=== PATIENT | male | born 1975 | race Caucasian/White ===

== ENCOUNTER 2019-08-07 17:01 | Inpatient (IN) | payer BC, OTHER ==
[~2019-08-07] VITALS: Ht 170.2 cm; Wt 111.0 kg
[2019-08-07] MEDS ORDERED: MIDAZOLAM HCL 1MG/1ML-2 ML VIAL ONE (17:06)
[2019-08-07] MEDS ORDERED: MIDAZOLAM DRIP 50 mg/50mL 50 ML IV ONE (17:12)
[2019-08-07] MEDS ORDERED: MIDAZOLAM HCL 5 MG/ML-1ML VIAL IV ONE ×2 (17:30→17:45)
[2019-08-07] MEDS: MIDAZOLAM DRIP 50 mg/50mL 50 ML IV SCH (17:36)
[2019-08-07 17:48] LABS: Basophils # (auto) 0.1 10 ^3/uL (0-0.2); Basophils % (auto) 0.8 % (0.0-2.0); Eosinophils # (auto) 0.4 10 ^3/uL (0-0.8); Eosinophils % (auto) 2.7 % (0.0-7.0); Hematocrit 49.2 % (41.0-53.0); Hemoglobin 16.1 g/dL (13.5-17.5); Lymphocytes # (auto) 7.5 10 ^3/uL (0.4-5.4); Lymphocytes % (auto) 52.5 % (10.0-50.0); Mean Corpuscular Hemoglobin 30.8 pg (28.0-32.0); Mean Corpuscular Hgb Conc. 32.7 g/dL (32.0-36.0); Mean Corpuscular Volume 94.3 fL (80.0-100.0); Monocytes # (auto) 0.9 10 ^3/uL (0-1.3); Neutrophils # (auto) 5.5 10 ^3/uL (1.6-8.6); Nucleated Red Blood Cells % 0.1 %; Platelet Count (auto) 185 10^3/uL (140-450); Red Blood Cells 5.22 10^6/uL (4.5-5.90); Red Cell Distribution Width 13.2 % (11.8-14.3); White Blood Cell 14.4 10^3/uL (4.4-10.8)
[2019-08-07 18:03] LABS: INR 1.01 (0.9-1.15); Partial Thromboplastin Time 24.4 sec (23.64-32.05)
[2019-08-07 18:04] LABS: Albumin 3.8 g/dL (3.4-5.0); Anion Gap 17 (5-15); Blood Urea Nitrogen 16 mg/dL (7-18); Calcium 7.9 mg/dL (8.5-10.1); Carbon Dioxide 16 mmol/L (21-32); Chloride 104 mmol/L (98-107); Glucose 251 mg/dL (74-106); Magnesium 2.7 mg/dL (1.6-2.6); Sodium 137 mmol/L (136-145)
[2019-08-07 18:06] LABS: Alanine Aminotransferase 240 U/L (16-61); Aspartate Aminotransferase 270 U/L (15-37); BUN/Creatinine Ratio 10.8; Blood Alcohol < 3.0 mg/dL (0-5); GFR African American 66 mL/min; GFR Non-African American 55 mL/min
[2019-08-07 18:11] LABS: Alkaline Phosphatase 92 U/L (45-117); Bilirubin, Total 0.4 mg/dL (0.2-1.0); Total Protein 7.7 g/dL (6.4-8.2)
[2019-08-07] MEDS ORDERED: cefTRIAXone 1GM/50ML D5W 50 ML IV ONE (18:15)
[2019-08-07] MEDS ORDERED: FUROSEMIDE 40 MG/4 ML VIAL IV ONE (18:15)
[2019-08-07] MEDS ORDERED: AMIODARONE HCL 150 MG in D5W 5% 100 ML IV ONE (18:15)
[2019-08-07] MEDS ORDERED: AZITHROMYCIN 500MG/ 250ML 250 ML IV ONE (18:15)
[2019-08-07] MEDS ORDERED: AMIODARONE 450mg/250ml AE 250 ML IV SCH (18:23)
[2019-08-07 18:25] VITALS: BP 116/75
[2019-08-07] MEDS ORDERED: IPRATROPIUM BROM 0.5 MG/2.5ML INH SOL NEB SCH (18:30)
[2019-08-07] MEDS ORDERED: ALBUTEROL SULF 2.5 MG/0.5ML(0.5%) NEB SOLN NEB SCH (18:30)
[2019-08-07] MEDS ORDERED: SODIUM BICARBONATE 8.4% INJ 50ML SYRINGE IV ONE (18:30)
[2019-08-07] MEDS ORDERED: DEXTROSE (50%) 50ML SYRG IV PRN (18:45)
[2019-08-07] MEDS ORDERED: NITROGLYCERIN 0.4 MG SL TAB SL PRN (18:45)
[2019-08-07] MEDS ORDERED: MORPHINE SULF INJ 2 MG/ML SYRINGE 1ML IV PRN (18:45)
[2019-08-07] MEDS: POTASSIUM CHL 20MEQ/100ML 100 ML IV SCH (18:48)
[2019-08-07 19:04] LABS: Urine Bacteria NONE SEEN /hpf (None Seen); Urine Blood 2+ /uL (Negative); Urine Hyaline Cast MANY /lpf (0 - 2); Urine Mucus FEW (None Seen); Urine WBC 54 /hpf (0 - 3)
[2019-08-07 19:16] LABS: Alcohol, Urine < 3.0 mg/dL (0-10); Amphetamine Screen, Urine NEGATIVE (NEGATIVE); Barbiturate Scree,Urine NEGATIVE (NEGATIVE); Benzodiazephine Screen, Urine POSITIVE (NEGATIVE); Cannabinoid Screen, Urine NEGATIVE (NEGATIVE); Cocaine Screen, Urine NEGATIVE (NEGATIVE); Opiate Scree,Urine NEGATIVE (NEGATIVE); Phencyclidine Screen, Urine NEGATIVE (NEGATIVE)
[2019-08-07] MEDS ORDERED: ONDANSETRON HCL 4 MG/2 ML VIAL IV ONE (19:30)
[2019-08-07 19:43] LABS: Cholesterol 194 mg/dL (< 200)
[2019-08-07 19:46] LABS: HDL Cholesterol 34 mg/dL (40-59); LDL Cholesterol 135 mg/dL (< 100); Triglycerides 295 mg/dL (< 150)
[2019-08-07 20:35] VITALS: BP 151/80
[2019-08-07 21:55] VITALS: BP 134/86
[2019-08-07] MEDS: metroNIDAZOLE 500MG/100ML 100 ML IV SCH (23:38)
[2019-08-07] MEDS: ACCU-CHEK COMFORT CURVE STRIP VI SCH (23:40)
[2019-08-07] MEDS: InsuLIN REG 1unit/0.01ml Soln (100units/ml) SC SCH (23:40)
[2019-08-08] VITALS (44 sets, daily range): BP systolic 31–123; BP diastolic 15–83
[2019-08-08] MEDS: POTASSIUM CHL 20MEQ/100ML 100 ML IV SCH ×3 (00:21→23:43)
[2019-08-08] MEDS: fentaNYL Drip 2500mCg/250mlNS 250 ML IV SCH ×2 (02:13→22:59)
[2019-08-08] MEDS: AMIODARONE 450mg/250ml AE 250 ML IV SCH ×3 (02:24→22:46)
[2019-08-08] MEDS ORDERED: SODIUM CHLORIDE 0.9% 1,000 ML IV SCH (02:45)
[2019-08-08] MEDS: MIDAZOLAM DRIP 50 mg/50mL 50 ML IV SCH ×3 (03:00→22:44)
[2019-08-08 05:15] LABS: Basophils # (auto) 0.1 10 ^3/uL (0-0.2); Eosinophils # (auto) 0 10 ^3/uL (0-0.8); Hematocrit 44.8 % (41.0-53.0); Hemoglobin 14.8 g/dL (13.5-17.5); Lymphocytes # (auto) 1.5 10 ^3/uL (0.4-5.4); Mean Corpuscular Hemoglobin 30.5 pg (28.0-32.0); Mean Corpuscular Volume 92.3 fL (80.0-100.0); Monocytes # (auto) 1.2 10 ^3/uL (0-1.3); Monocytes % (auto) 7.7 % (0.0-12.0); Neutrophils # (auto) 12.3 10 ^3/uL (1.6-8.6); Neutrophils % (auto) 81.3 % (37.0-80.0); Platelet Count (auto) 154 10^3/uL (140-450); Red Blood Cells 4.85 10^6/uL (4.5-5.90); Red Cell Distribution Width 13.6 % (11.8-14.3); White Blood Cell 15.2 10^3/uL (4.4-10.8)
[2019-08-08 05:41] LABS: BUN/Creatinine Ratio 16.3; Calcium 7.7 mg/dL (8.5-10.1); Potassium 4.6 mmol/L (3.5-5.1)
[2019-08-08] MEDS: IPRATROPIUM BROM 0.5 MG/2.5ML INH SOL NEB SCH ×3 (06:27→18:12)
--- NOTE | 2019-08-08 06:27 | NUR ---
Respiratory note: RECEIVED PT FROM CIVIL MANAGER ON VENT V-21 PLUGGED INTO RED OUTLET. ALL VENT ALARMS ARE AUDIBLE, AND FUNCTIONING. AMBU BAG/MASK IS AT BEDSIDE CONNECTED TO AN O2 SOURCE. ETT IS 8.0 @ THE 23 LIP LINE SECURED WITH A ROB. MOVED ETT FROM RIGHT, TO CENTER. NO ORAL/SKIN BREAK DOWN NOTED. BS ARE COARSE BILATERALLY. SX FOR SMALL AMOUNT OF THIN, BLOOD TINGED SECRETIONS. GAG REFLEX NOTED. MEDNEB TX GIVEN INLINE, WITH NO ADVERSE EFFECTS NOTED. PT SKIN IS COOL/DRY TO THE TOUCH. NO EDEMA NOTED. PT IS RESPONSIVE TO VERBAL, AND TACTILE STIMULI. BOTH HANDS ARE SECURED WITH RESTRAINTS DUE TO PT BEING AGGRESSIVE DURING CIVIL MANAGER PER RN. NO NEW VENT CHANGES ARE ORDERED AT THIS TIME. PT IS AWAITING TRANSFER TO TO ICU BED. RN AT BEDSIDE. WILL CONTINUE TO MONITOR PT.
[2019-08-08] MEDS: ALBUTEROL SULF 2.5 MG/0.5ML(0.5%) NEB SOLN NEB SCH ×3 (06:28→18:12)
[2019-08-08] MEDS: metroNIDAZOLE 500MG/100ML 100 ML IV SCH (06:45)
[2019-08-08] MEDS: ACCU-CHEK COMFORT CURVE STRIP VI SCH ×4 (07:01→22:30)
[2019-08-08] MEDS: InsuLIN REG 1unit/0.01ml Soln (100units/ml) SC SCH ×4 (07:02→22:30)
[2019-08-08] MEDS ORDERED: cefTRIAXone 1GM/50ML D5W 50 ML IV SCH (09:00)
[2019-08-08] MEDS ORDERED: AZITHROMYCIN 500MG/ 250ML 250 ML IV SCH (10:00)
[2019-08-08] MEDS ORDERED: ENOXAPARIN SOD 40 MG/0.4 ML SYRINGE SC SCH (10:00)
--- NOTE | 2019-08-08 11:00 | NUR ---
Respiratory note: RT COPELAND INFORMED ME THAT PT NEEDED TO BE CARDIOVERTED. PT FIO2 WAS INCREASED TO 50%. PT HR RETURNED TO NORMAL SINUS RHYTHM. NO NEW VENT CHANGES ORDERED AT THIS TIME. WILL CONTINUE TO MONITOR PT.
[2019-08-08] MEDS ORDERED: IOHEXOL 350 MG/ML 100ML IJ ONE ×6 (11:17→14:10)
[2019-08-08] MEDS ORDERED: SODIUM BICARBONATE 8.4 % INJ 50ML VIAL IV ONE (11:30)
[2019-08-08] MEDS ORDERED: LIDOCAINE HCL 100 MG/5ML (2%) SYRG INJ IV ONE (11:30)
[2019-08-08] MEDS: LINEZOLID 600MG/300ML 300 ML IV SCH ×2 (11:30→23:53)
[2019-08-08] MEDS ORDERED: FUROSEMIDE 40 MG/4 ML VIAL IV ONE (11:45)
[2019-08-08 12:16] LABS: Free T3 3.15 pg/mL (2.3-4.2); Free T4 (Free Thyroxine) 0.9 ng/dL (0.89-1.76)
[2019-08-08] MEDS ORDERED: ANGIOMAX 250 MG VIAL IV ONE ×2 (12:18→13:53)
[2019-08-08] MEDS ORDERED: LIDOCAINE 2%HCL (LOCAL ANESTH.) INJ 20ML MDV ONE (12:19)
[2019-08-08] MEDS ORDERED: SODIUM CHL 0.9% 50 ML ONE ×2 (12:19→13:53)
--- NOTE | 2019-08-08 12:20 | NUR ---
PT TRANSPORTED TO ENGLISH LANGUAGE LEARNER TUTOR VIA TRANSPORT VENT WITHOUT INCIDENT. RN, AND BATH STEWARD/STEWARDESS AT BEDSIDE. WILL CONTINUE TO MONITOR PT.
[2019-08-08 12:32] LABS: Lactic Acid w/Reflex 2.1 mmol/L (0.4-2.0)
[2019-08-08] MEDS ORDERED: DOPamine 1600MCG/ML D5W 0 ML IV ONE (12:35)
[2019-08-08] MEDS ORDERED: ATROPINE SULF 1 MG/10ml SYR ONE (12:35)
[2019-08-08] MEDS ORDERED: EPINEPHrine HCL 1 MG/10 ML SYRG ONE (12:35)
[2019-08-08] MEDS ORDERED: VERAPAMIL 2.5MG/ML INJ 2ML VIAL IV ONE (12:39)
[2019-08-08] MEDS ORDERED: HEPARIN SODIUM (PORCINE) 5000 UNITS/ML 1ML VIAL ONE (12:39)
[2019-08-08] MEDS ORDERED: PHENYLEPHRINE HCL 10 MG/ML VL ONE (12:47)
[2019-08-08] MEDS ORDERED: TICAGRELOR 90 MG TAB ONE (14:00)
[2019-08-08] MEDS: MEROPENEM 1GM IVPB 100 ML IV SCH ×2 (14:00→22:26)
[2019-08-08] MEDS ORDERED: ASPirin 325 MG TAB ONE (14:00)
[2019-08-08] MEDS ORDERED: MIDAZOLAM DRIP 50 mg/50mL 50 ML IV ONE (14:10)
[2019-08-08] MEDS ORDERED: FUROSEMIDE 20 MG/2 ML VIAL ONE (14:45)
[2019-08-08] MEDS ORDERED: DOBUTamine 1000MCG/ML 250 ML IV ONE (14:45)
[2019-08-08] MEDS: HEPARIN DRIP/D5W 100UNITS/ML 250 ML IV SCH ×2 (15:06→19:38)
[2019-08-08] MEDS ORDERED: fentaNYL CITRATE 100 MCG/2 ML VL ONE (15:08)
[2019-08-08] MEDS ORDERED: HEPARIN SODIUM (PORCINE) 5000 UNITS/ML 1ML VIAL IV ONE (15:15)
[2019-08-08] MEDS: DOBUTamine 1000MCG/ML 250 ML IV SCH ×2 (15:15→22:56)
--- NOTE | 2019-08-08 15:24 | NUR ---
REPORT Received report from Brad from wastewater analyst lab analyst, awaiting for patient to arrive to room 112.
[2019-08-08] MEDS ORDERED: SOD CHL 0.45% 1,000 ML IV SCH (15:45)
[2019-08-08] MEDS ORDERED: FUROSEMIDE 40 MG/4 ML VIAL IV PRN (15:45)
--- NOTE | 2019-08-08 15:55 | NUR ---
PT TRANSPORTED TO ICU BED 112 FROM PATIENT SUPPORT ASSISTANT WITHOUT INCIDENT. PT PLACED BACK ON VENT ON PREVIOUS SETTINGS. BS CLEAR/DIMINISHED BILATERALLY. SX FOR SCANT AMOUNT OF THICK, WHITE SECRETIONS. GAG REFLEX NOTED. NO NEW VENT CHANGES ORDERED AT THIS TIME. RN AT BEDSIDE. WILL ENDORSE PT STATUS TO DERRICK BUILDER.
--- NOTE | 2019-08-08 17:00 | NUR ---
URINE OUTPUT Received 350 of clear yellow urine from Guerrero catheter.
--- NOTE | 2019-08-08 17:15 | NUR ---
FAMILY Received phone call from patients mother, correct password provided and updated on patient condition. Questions/concerns answered.
--- NOTE | 2019-08-08 17:15 | NUR ---
TR BAND Deflated 2 ml of air from TR band, NO bleeding observed.
[2019-08-08] MEDS: FUROSEMIDE 40 MG/4 ML VIAL IV SCH (17:30)
--- NOTE | 2019-08-08 17:30 | NUR ---
TR BAND Deflated 2 ml of air from TR band, NO bleeding observed.
--- NOTE | 2019-08-08 17:45 | NUR ---
TR BAND Deflated 2 ml of air from TR band, NO bleeding observed.
--- NOTE | 2019-08-08 18:00 | NUR ---
URINE OUTPUT Received 550 of clear yellow urine for this hour. veterinary laboratory diagnostician emptied 1000ml before bring patient to ICU Total amount of urine output is 1900ml.
--- NOTE | 2019-08-08 18:00 | NUR ---
TR BANd Deflated 2 ml of air from TR band, bleeding observed. Placed 2 ml of air into TR band will continue to assess in 30 minutes for bleeding.
[2019-08-08 18:16] LABS: Basophils # (auto) 0 10 ^3/uL (0-0.2); Basophils % (auto) 0.4 % (0.0-2.0); Eosinophils # (auto) 0.1 10 ^3/uL (0-0.8); Eosinophils % (auto) 0.7 % (0.0-7.0); Hematocrit 41.4 % (41.0-53.0); Hemoglobin 13.9 g/dL (13.5-17.5); Lymphocytes # (auto) 1.8 10 ^3/uL (0.4-5.4); Lymphocytes % (auto) 17.3 % (10.0-50.0); Mean Corpuscular Hemoglobin 31.1 pg (28.0-32.0); Mean Corpuscular Hgb Conc. 33.6 g/dL (32.0-36.0); Mean Corpuscular Volume 92.5 fL (80.0-100.0); Monocytes # (auto) 0.9 10 ^3/uL (0-1.3); Neutrophils # (auto) 7.6 10 ^3/uL (1.6-8.6); Neutrophils % (auto) 72.6 % (37.0-80.0); Platelet Count (auto) 114 10^3/uL (140-450); Red Blood Cells 4.48 10^6/uL (4.5-5.90); Red Cell Distribution Width 13.7 % (11.8-14.3); White Blood Cell 10.4 10^3/uL (4.4-10.8)
[2019-08-08 18:27] LABS: INR 1.19 (0.9-1.15); Partial Thromboplastin Time 46.4 sec (23.64-32.05)
--- NOTE | 2019-08-08 18:30 | NUR ---
TR BAND Deflated 2 ml of air from TR band, bleeding observed. Placed 2 ml of air back into TR BAND. Will assess in 30 minutes for bleeding again.
[2019-08-08 18:33] LABS: Albumin 3.2 g/dL (3.4-5.0); Calcium 7.4 mg/dL (8.5-10.1); Potassium 3.3 mmol/L (3.5-5.1)
[2019-08-08 18:35] LABS: Magnesium 1.7 mg/dL (1.6-2.6)
[2019-08-08 18:36] LABS: Bilirubin, Total 0.8 mg/dL (0.2-1.0); Total Protein 6.5 g/dL (6.4-8.2)
--- NOTE | 2019-08-08 19:30 | NUR ---
OPEN NOTES ASSUMED CARE OF PATIENT. PATIENT RECEIVED SEDATED WITH IV VERSED AND FENTANYL.PUPILS BOTH REACTIVE TO LIGHT. NOTED LIMB MOVEMENTS WHEN STIMULATED. INTUBATED,VENTILATED ON AC GIRISH, FIO2 60%. SUCTIONED ORALLY MODERATE AMOUNT OF SECRETIONS. COUGH AND GAG NOTED. HR 110-115/MIN SINUS TACHYCARDIA. WITH IABP 1:1 AT RIGHT FEMORAL, DRESSING NOTED WITH BLOOD CLOTTED AT THE SITE. WITH SWAN ZENA CATHETER AT RIGHT FEMORAL, PA 32/15(21), CVP 2 IV DOBUTAMINE AT 4MCG/KG/MIN, AND IV AMIODARONE AT 0.5MG/MIN INFUSING IV HEPARIN TO START PER PHARMACY PROTOCOL. TR BAND IN PLACED AT RIGHT WRIST WITH 2MLS OF INFLATION - WILL MONITOR BOTH FEET ARE COLD TO TOUCH, PULSES STRONG ON DOPPLER- COVERED WITH WARM BLANKETS RIGHT NARES NGT CLAMPED-PLACEMENT CHECKED FULL ASSESSMENT REFER INTERVENTIONS
--- NOTE | 2019-08-08 20:30 | NUR ---
TR BAND Deflated 2 ml of air from TR band, observe for 10 minutes - No bleeding noted. TR band removed. Dressing applied will continue to monitor
--- NOTE | 2019-08-08 21:00 | NUR ---
SKIN TEAR NOTED AT RIGHT UPPER LATERAL CHEST CLEANED. UNABLE TO TAKE PICTURE AT THE MOMENT THE ICU CAMERA LENS IS BLURRED COVERED SKIN TEAR WITH OPTIFOAM WILL GET FAM CAMERA LATER
[2019-08-08 21:45] LABS: Magnesium 1.6 mg/dL (1.6-2.6); Potassium 3.1 mmol/L (3.5-5.1)
--- NOTE | 2019-08-08 21:55 | NUR ---
FRANCISCO JAVIER HOSPITALIST FOR LAB RESULTS Addendum: 08/08/19 at 2157 by Laila Soliz RN INITIALLY ANTED TO FRANCISCO JAVIER HADLEY BUT EDWARD SAID HE IS PAGEABLE.
--- NOTE | 2019-08-08 21:58 | NUR ---
PAGED DR. HADLEY
[2019-08-08] MEDS ORDERED: TICAGRELOR 90 MG TAB PO SCH (22:00)
[2019-08-08] MEDS ORDERED: METOPROLOL TARTRATE 25 MG TAB PO SCH (22:00)
--- NOTE | 2019-08-08 22:05 | NUR ---
LAUNCH LEADER CALLED BACK TALKED TO DR. HADLEY OVER THE PHONE UPDATED HIM OF PATIENT'S PARAMETERS HR 110-115/MIN, AUG >90, MEAN >80 POTASSIUM 3.1, MG 1.6, INFORMED PA (23), CO6.7, CI 2.7, SVR 883 TELEPHONE ORDER RECEIVED: 1. INCREASED IV FLUIDS TO 100ML/HR 2. POTASSIUM 40 MEQ 3. MG 2GM 4. HOLD OFF LASIX KOKO DOSE 5. KEEP PAD 20
--- NOTE | 2019-08-08 22:30 | NUR ---
EX CALLED EX ZIYAD CALLED. PASSWORD VERIFIED. UPDATED OF PATIENT'S CONDITION. ALL QUESTIONS ANSWERED. VERBALIZED UNDERSTANDING
[2019-08-08] MEDS: SODIUM CHLORIDE 0.9% 1,000 ML IV SCH (22:31)
[2019-08-08] MEDS: ATORVASTATIN 20 MG TAB PO SCH (22:48)
[2019-08-09] VITALS (105 sets, daily range): BP systolic 31–138; BP diastolic 17–89
[2019-08-09] MEDS: ALBUTEROL SULF 2.5 MG/0.5ML(0.5%) NEB SOLN NEB SCH ×4 (00:01→18:33)
[2019-08-09] MEDS: IPRATROPIUM BROM 0.5 MG/2.5ML INH SOL NEB SCH ×4 (00:01→18:33)
[2019-08-09] MEDS: MAGNESIUM SULFATE 1GM/100ML 100 ML IV SCH ×2 (00:57→02:09)
[2019-08-09] MEDS: MIDAZOLAM DRIP 50 mg/50mL 50 ML IV SCH ×3 (02:10→13:07)
[2019-08-09 02:12] LABS: INR 1.11 (0.9-1.15); Partial Thromboplastin Time 36.8 sec (23.64-32.05)
--- NOTE | 2019-08-09 03:00 | NUR ---
HEPARIN PTT = 36.8 SECS IV HEPARIN INCREASED TO 1200UNIT/HR PER PROTOCOL TO REPEAT PTT IN 6HOURS
--- NOTE | 2019-08-09 03:20 | NUR ---
SKIN TEAR PICTURE TAKEN USING FAM CAMERA
--- NOTE | 2019-08-09 04:00 | NUR ---
TEMP ELEVATED CORE TEMP 100.4F COOLING MEASURES STARTED
[2019-08-09 04:46] LABS: Albumin 2.9 g/dL (3.4-5.0); Calcium 7.1 mg/dL (8.5-10.1); Magnesium 2.6 mg/dL (1.6-2.6); Potassium 3.5 mmol/L (3.5-5.1)
[2019-08-09 04:51] LABS: BUN/Creatinine Ratio 12.5; Bilirubin, Total 0.8 mg/dL (0.2-1.0); Total Protein 5.7 g/dL (6.4-8.2)
[2019-08-09 04:52] LABS: Basophils # (auto) 0.1 10 ^3/uL (0-0.2); Basophils % (auto) 0.8 % (0.0-2.0); Eosinophils # (auto) 0.2 10 ^3/uL (0-0.8); Eosinophils % (auto) 1.6 % (0.0-7.0); Hematocrit 37.7 % (41.0-53.0); Hemoglobin 12.5 g/dL (13.5-17.5); Lymphocytes % (auto) 19.9 % (10.0-50.0); Mean Corpuscular Hemoglobin 30.8 pg (28.0-32.0); Mean Corpuscular Hgb Conc. 33.1 g/dL (32.0-36.0); Monocytes # (auto) 1.1 10 ^3/uL (0-1.3); Neutrophils # (auto) 6.7 10 ^3/uL (1.6-8.6); Neutrophils % (auto) 66.7 % (37.0-80.0); Nucleated Red Blood Cells % 0.1 %; Platelet Count (auto) 104 10^3/uL (140-450); Red Blood Cells 4.05 10^6/uL (4.5-5.90); Red Cell Distribution Width 13.9 % (11.8-14.3)
--- NOTE | 2019-08-09 05:46 | NUR ---
HOSPITALIST CALLED BACK TALKED TO CATHI MCFADDEN OVER THE PHONE. INFORMED OF FEVER 101.3F AND POTASSIUM 3.5 TELEPHONE ORDER RECEIVED : TYLENOL 650MG Q6H PRN, NO REPLACEMENT FOR POTASSIUM YET
[2019-08-09] MEDS: FUROSEMIDE 40 MG/4 ML VIAL IV SCH ×2 (06:00→17:41)
[2019-08-09] MEDS: InsuLIN REG 1unit/0.01ml Soln (100units/ml) SC SCH ×4 (06:10→22:00)
[2019-08-09] MEDS: ACCU-CHEK COMFORT CURVE STRIP VI SCH ×4 (06:10→22:00)
[2019-08-09] MEDS: MEROPENEM 1GM IVPB 100 ML IV SCH ×3 (06:15→22:00)
[2019-08-09] MEDS: ACETAMINOPHEN 650 mg PER 20 mL UD GT PRN (06:23)
--- NOTE | 2019-08-09 07:20 | NUR ---
TALKED TO DR. HADLEY OVER THE PHONE UPDATED HIM OF PATIENT'S CONDITION,HEMODYNAMICS AND LAB RESULTS TELEPHONE ORDER RECEIVED AND VERIFIED
--- NOTE | 2019-08-09 07:20 | NUR ---
IABP PLACED ON 1:2 RATIO : PER DR. HADLEY'S ORDERS PATIENT'S HEMODYNAMICS TOLERATING WELL. WILL CONTINUE TO MONITOR CLOSELY. ORDERS RECEIVED AND TO BE CARRIED OUT, FROM DR. HADLEY.
[2019-08-09] MEDS: POTASSIUM CHL 20MEQ/100ML 100 ML IV SCH ×2 (07:30→09:27)
[2019-08-09] MEDS: TICAGRELOR 90 MG TAB GT SCH ×2 (07:30→22:00)
[2019-08-09] MEDS ORDERED: POTASSIUM CHL 20MEQ/100ML 200 ML IV ONE (07:39)
--- NOTE | 2019-08-09 07:40 | NUR ---
JESUSITA RECEIVED REPORT FROM GUY RN. ASSUMED CARE OF ICU PATIENT, FULL CODE STATUS. PATIENT SEDATED IN VENT WITH IABP AND PA CATHETER, PATIENT 1:1 STATUS. ETT #8.0 , 23 CM AT LIP. AC 16,550 VT, 40% FIO2, PEEP +8. CURRENT O2 SATS 100%. IABP AT RIGHT FEMORAL ARTERY, ALSO HAS P.A. CATHETER TO RIGHT FEMORAL, 80 CM AT HUB. SITES BOTH INTACT, CLEAN AND DRY. IABP RATIO NOW 1:[address] HADLEY ORDERS. CURRENT TEMP 99.1, CORE TEMP VIA P.A. CATHETER. SEE V/S FLOW SHEET FOR FURTHER PATIENT INFORMATION, SEE IABP FLOW SHEET FOR HEMODYNAMICS AND IV FLOW SHEET FOR GTT'S AND TITRATIONS MADE. PATIENT HAS RIGHT IJ TLC, PATENT AND GTT'S INFUSING TO SITE. RIGHT RAMIRES NGT CLAMPED, PLACEMENT VERIFIED. KRAFT TO GRAVITY. +1 ESTEFANÍA D.P PULSES WITH DOPPLER. +2 PALPABLE LEFT RADIAL PULSE FELT AT THIS TIME. ESTEFANÍA LE COOL TO TOUCH. WILL CONTINUE TO MONITOR.
[2019-08-09] MEDS: DOBUTamine 1000MCG/ML 250 ML IV SCH ×3 (08:09→19:31)
[2019-08-09] MEDS: SODIUM CHLORIDE 0.9% 1,000 ML IV SCH (08:10)
[2019-08-09] MEDS ORDERED: VANCOMYCIN 1GM/250ML 250 ML IV ONE (08:30)
--- NOTE | 2019-08-09 08:40 | NUR ---
FAMILY CALLED UPDATED FAMILY ON PT'S CURRENT STATUS AND POC FOR TODAY. ALL QUESTIONS ANSWERED. FAMILY TO CALL BACK LATER ON TODAY. CONTINUE CARE.
--- NOTE | 2019-08-09 09:02 | NUR ---
PT UNSTABLE FOR TRANSPORT TO CT AT THIS TIME.
[2019-08-09] MEDS: PANTOPRAZOLE 40 MG/10 ML VIAL INJ IV SCH (09:26)
[2019-08-09] MEDS: ASPirin 81 mg TAB PO SCH (09:27)
--- NOTE | 2019-08-09 09:47 | NUR ---
Johann JAIMES AT BEDSIDE: ORDERS Johann JAIMES AT BEDSIDE, ASSESSING PATIENT AT BEDSIDE. INFORMED HER ON PT'S TRENDING HEMODYNAMICS, CURRENT GTT'S AND THAT IABP RATIO IS NOW 1:2 AND PATIENT IS TOLERATING WELL. WILL CARRY OUT ORDERS GIVEN. CONTINUE CARE.
--- NOTE | 2019-08-09 09:55 | NUR ---
DR. GAITAN AT BEDSIDE: ORDERS GIVEN MD UPDATED ON PT'S CURRENT STATUS, LABS, ABG AND TRENDING HEMODYNAMICS FOR TODAY. ORDERS GIVEN AND TO BE CARRIED OUT. MD ASSESSING PATIENT AT THIS TIME. ORDERS GIVEN TO DC IVF OF NS AT 100 ML/HR. MD TO TALK WITH DR. HADLEY AND Johann JAIMES. WILL CONTINUE WITH CURRENT TREATMENT PLAN.
[2019-08-09] MEDS ORDERED: ASPirin 81 mg TAB PO SCH (10:00)
[2019-08-09] MEDS ORDERED: CLOPIDOGREL BISULFATE 75 MG TAB PO SCH (10:00)
[2019-08-09 10:17] LABS: INR 1.06 (0.9-1.15); Partial Thromboplastin Time 40.2 sec (23.64-32.05)
--- NOTE | 2019-08-09 10:25 | NUR ---
HEPARIN GTT NOW AT 1400 UNITS/HR INCREASED HEPARIN GTT FROM 1200 UNITS/HR TO 1400 UNITS/HR, DUE TO CURRENT aPTT LEVEL 40.2. TITRATING PER PROTOCOL. NO BOLUS TO BE GIVEN. CONTINUE CARE. MD'S TO BE INFORMED.
[2019-08-09] MEDS: LINEZOLID 600MG/300ML 300 ML IV SCH ×2 (10:30→22:00)
--- NOTE | 2019-08-09 10:43 | NUR ---
HEMODYNAMICS/ C.O./ C.I. PATIENT CONTINUES ON IABP 1:2 RATIO. CURRENT LELO C.O. 8.7, C.I. 3.5. CURRENT SVR 680, PVR 322. DR. HADLEY TO BE INFORMED. CONTINUE CARE.
[2019-08-09] MEDS: AMIODARONE 450mg/250ml AE 250 ML IV SCH (11:22)
--- NOTE | 2019-08-09 11:35 | NUR ---
DR. HADLEY AT BEDSIDE: HEMODYNAMICS MD UPDATED ON PT'S TRENDING HEMODYNAMICS. MD WEDGING PATIENT AT THIS TIME. CURRENT P.A. WEDGE PRESSURE IS 26 MMHG. MD AWARE. ORDERS GIVEN TO DC HEPARIN GTT AT 1200, TODAY. MD TO COME BY AROUND 1500, TODAY, TO DC IABP AT BEDSIDE. CONTINUE CARE.
--- NOTE | 2019-08-09 12:00 | NUR ---
HEPARIN DRIP OFF AT THIS TIME
[2019-08-09] MEDS ORDERED: LIDOCAINE 2% (LOCAL ANESTH.) PF 5ml SDV ONE ×2 (13:22→14:39)
--- NOTE | 2019-08-09 14:19 | NUR ---
Respiratory note: ROUTINE VENT CHECK. TITRATED FIO2 TO 30%. PT TOLERATING WELL. RN AT BEDSIDE AND AWARE OF CHANGES.WILL CONTINUE TO MONITOR PT.
--- NOTE | 2019-08-09 14:40 | NUR ---
DR. HADLEY CALLED: ORDERS RECEIVED MD UPDATED ON PT'S TRENDING HEMODYNAMICS. CURRENT PA PRESSURE 60/35 MEAN 44. ORDERS TO GIVE X1 DOSE OF LASIX 40 MG IVP NOW. SEE EMAR FOR TIME GIVEN. ORDERS ALSO TO INCREASE DOBUTAMINE GTT UP TO 8 MCG/KG/MIN. CURRENT HR 105. LAST WEDGE PRESSURE WAS 26. PATIENT CONTINUES TO REMAIN SEDATED ON VENT. CURRENT FIO2 AT 30%. Addendum: 08/09/19 at 1516 by Karissa Bal RN DOBUTAMINE GTT WEANED BACK DOWN TO 5 MCG/KG/MIN DUE TO PATIENT UNABLE TO TOLERATE GTT AT THAT LEVEL.
--- NOTE | 2019-08-09 15:30 | NUR ---
IABP DC'D AT THIS TIME: DR. HADLEY AT BEDSIDE REMOVAL OF IABP AT THIS TIME BY DR. HADLEY. ASSISTED MD DURING THIS TIME. REMOVAL OF OLD DRESSING AND AREA CLEANED AND DRY. NO BLEEDING, BRUISING OR HEMATOMA AT SITE. TO RIGHT GROIN. NEW TEGADERM PLACED OVER SITE AND ALSO OVER SECURED P.A. CATHETER SITE THAT IS ALSO IN THE RIGHT GROIN. PULSES +1, PALPATED TO ESTEFANÍA D.P AND P.T. +2 ESTEFANÍA RADIAL PULSES PALPATED AT THIS TIME. CAP REFILL REMAINS < 3 SECONDS. SKIN PINK TO LE AND COOL TO TOUCH. A-LINE FROM IABP REMOVED ALSO. NOW TAKING LEFT UE BP CUFF PRESSURE, CURRENT SBP MID 120'S. BEFORE REMOVING IABP, DR. HADLEY WEDGED SWAN CATHETER. WEDGE PRESSURE OF [address] HADLEY WANTING TO CONTINUE CO/CI OUTPUT Q6HRS AND TO BE RECORDED. CONTINUE MONITORING OF P.A. PRESSURES AND CVP MONITORING. CONTINUE CARE.
[2019-08-09 16:34] LABS: Potassium 3.3 mmol/L (3.5-5.1)
[2019-08-09] MEDS ORDERED: PROPOFOL 100 ML IV ONE (16:41)
[2019-08-09] MEDS: PROPOFOL 100 ML IV SCH ×3 (16:45→22:20)
--- NOTE | 2019-08-09 16:45 | NUR ---
DIPRIVAN GTT STARTED AT THIS TIME PER DR. SIMMONS'S ORDERS. PATIENT BITING ON ETT AND MOVES ARMS UP WHILE TRYING TO SUCTION PATIENT AT THIS TIME. STATED DIPRIVAN GTT PER PROTOCOL. SEE IV SPREADSHEET. PATIENT RISK FOR INJURY. MITTENS PLACED TO ESTEFANÍA HANDS AT THIS TIME.
--- NOTE | 2019-08-09 16:45 | NUR ---
DR. SIMMONS AT BEDSIDE: ORDERS MD UPDATED ON PT'S CURRENT STATUS, HX, TRENDING HEMODYNAMICS AND CURRENT GTT'S AT THIS TIME. ORDERS GIVEN AND TO BE CARRIED OUT. WANTING X1 BANANA BAG AT A RATE OF 50 ML/HR. DIPRIVAN GTT ORDERS GIVEN, TO HELP WITH PATIENT'S SEDATION CONTROL. DAILY SEDATION VACATION STARTING TOMORROW AM. CONTINUE CARE. SEE CHART FOR FURTHER INFO.
[2019-08-09] MEDS ORDERED: chlordiazePOXIDE HCL 25 MG CAP PO PRN (17:00)
--- NOTE | 2019-08-09 17:30 | NUR ---
PAGED DR. AGUIRRE : BOAT OPERATOR HOSPITALIST R/T CURRENT K+ LEVEL 3.3, MAG+ LEVEL 2.0. COMMUNICATION ORDER TO KEEP k+ LEVEL > 4.0, MAG + LEVEL >2.0. WAITING FOR CALLBACK FROM MD. CONTINUE CARE.
[2019-08-09] MEDS: fentaNYL Drip 2500mCg/250mlNS 250 ML IV SCH (17:41)
[2019-08-09] MEDS ORDERED: FOLIC ACID 1 MG, MULTIPLE VITAMIN 10 ML, MAGNESIUM SULF SDV 50% 8 MEQ, THIAMINE INJ 100... INJ ONE ×5 (18:00)
--- NOTE | 2019-08-09 18:15 | NUR ---
RE-PAGED DR. VIZCARRA: k+ LEVEL 3.3 WAITING FOR CALL BACK TO INFORM MD THAT CURRENT k + LEVEL IS 3.3, MAG+ LEVEL 2.0. WILL CONTINUE TO MONITOR. NO ECTOPY ON CURRENT HEART RHYTHM.
--- NOTE | 2019-08-09 19:06 | NUR ---
FAMILY UPDATED AT THIS TIME. UPDATED ON PT'S CURRENT STATUS, REMOVAL OF IABP FROM EARLIER TODAY AND CURRENT POC FOR TONIGHT. REPORT TO BE GIVEN TO LARA SUAZO. TRANSFER CARE.
[2019-08-09] MEDS: ATORVASTATIN 20 MG TAB PO SCH (22:00)
[2019-08-10] VITALS (91 sets, daily range): BP systolic 26–125; BP diastolic 12–83
[2019-08-10] MEDS: DOBUTamine 1000MCG/ML 250 ML IV SCH ×4 (00:05→16:16)
[2019-08-10] MEDS: ALBUTEROL SULF 2.5 MG/0.5ML(0.5%) NEB SOLN NEB SCH ×4 (01:06→22:35)
[2019-08-10] MEDS: IPRATROPIUM BROM 0.5 MG/2.5ML INH SOL NEB SCH ×4 (01:07→22:35)
[2019-08-10] MEDS: MEROPENEM 1GM IVPB 100 ML IV SCH ×3 (06:00→22:37)
[2019-08-10] MEDS: FUROSEMIDE 40 MG/4 ML VIAL IV SCH ×2 (06:00→17:45)
[2019-08-10] MEDS: InsuLIN REG 1unit/0.01ml Soln (100units/ml) SC SCH ×4 (06:59→22:40)
[2019-08-10] MEDS: ACCU-CHEK COMFORT CURVE STRIP VI SCH ×4 (07:00→22:37)
--- NOTE | 2019-08-10 08:00 | NUR ---
OPEN RECEIVED REPORT FROM NIGHT RN. ASSUMED CARE OF ICU PATIENT, FULL CODE STATUS. PATIENT SEDATED ON VENT, SEE IV SPREAD SHEET FOR GTT'S AND TITRATIONS MADE. #8.0 ETT, 23 CM AT LIP. FIO2 AT 30%, +8 PEEP ON VENT. RIGHT RAMIRES NGT CLAMPED, PLACEMENT VERIFIED. PATIENT HAS SWAN TO RIGHT GROIN, 80 CM AT THE HUB. +1 D.P PULSES PALPATED AT THIS TIME. CAP REFILL TO ESTEFANÍA LE <3 SECONDS. DRESSING TO RIGHT GROIN CLEAN, DRY AND INTACT, NO HEMATOMA OR BLEEDING NOTED. KRAFT TO GRAVITY. PATIENT HAS RIGHT IJ TLC, PATENT AND INTACT. SKIN INTACT TO SACRAL AREA. PATIENT PLACED IN REVERSE TRENDELENBURG AT A 30 DEGREE ANGLE TO HELP WITH SWAN PLACEMENT. WILL CONTINUE TO OFF LOAD PRESSURE AREAS WITH PILLOWS. CONTINUE TO MONITOR. SEE TIP SCOURER AND V/S FLOW SHEET FOR FURTHER PATIENT INFORMATION.
--- NOTE | 2019-08-10 09:30 | NUR ---
FAMILY CALLED UPDATED FAMILY MEMBER ON PT'S CURRENT STATUS AND POC FOR TODAY. FAMILY TO CALL AGAIN, LATER ON TODAY. CONTINUE CARE.
[2019-08-10 10:01] LABS: Basophils # (auto) 0 10 ^3/uL (0-0.2); Basophils % (auto) 0.5 % (0.0-2.0); Eosinophils # (auto) 0.4 10 ^3/uL (0-0.8); Eosinophils % (auto) 5.2 % (0.0-7.0); Hematocrit 37.6 % (41.0-53.0); Hemoglobin 12.6 g/dL (13.5-17.5); Lymphocytes # (auto) 1.2 10 ^3/uL (0.4-5.4); Lymphocytes % (auto) 16.8 % (10.0-50.0); Mean Corpuscular Hemoglobin 31.2 pg (28.0-32.0); Mean Corpuscular Hgb Conc. 33.6 g/dL (32.0-36.0); Mean Corpuscular Volume 92.8 fL (80.0-100.0); Monocytes # (auto) 0.6 10 ^3/uL (0-1.3); Neutrophils # (auto) 4.7 10 ^3/uL (1.6-8.6); Neutrophils % (auto) 68.5 % (37.0-80.0); Nucleated Red Blood Cells % 0.1 %; Platelet Count (auto) 83 10^3/uL (140-450); Red Blood Cells 4.05 10^6/uL (4.5-5.90); Red Cell Distribution Width 12.9 % (11.8-14.3); White Blood Cell 6.9 10^3/uL (4.4-10.8)
[2019-08-10 10:30] LABS: Calcium 7.7 mg/dL (8.5-10.1); Potassium 3.2 mmol/L (3.5-5.1)
[2019-08-10] MEDS: TICAGRELOR 90 MG TAB GT SCH ×2 (10:30→22:37)
[2019-08-10] MEDS: ASPirin 81 mg TAB PO SCH (10:30)
[2019-08-10] MEDS: PANTOPRAZOLE 40 MG/10 ML VIAL INJ IV SCH (10:30)
[2019-08-10] MEDS: FOLIC ACID 1 MG in D5W 5% 50 ML IV SCH (10:30)
[2019-08-10] MEDS: LINEZOLID 600MG/300ML 300 ML IV SCH (10:30)
[2019-08-10] MEDS: THIAMINE 100mg/ml INJ (200mg/2ml VIAL) IV SCH (10:30)
--- NOTE | 2019-08-10 10:30 | NUR ---
DR. SIMMONS AT BEDSIDE: ORDERS MD UPDATED ON PT'S CURRENT STATUS, LABS, ABG RESULTS AND POC FOR TODAY. ORDERS GIVEN AND TO BE CARRIED OUT. WILL CONTINUE TO WEAN DOWN ON PT'S SEDATION. CONTINUE CARE.
[2019-08-10 10:33] LABS: BUN/Creatinine Ratio 8.5; Magnesium 2.4 mg/dL (1.6-2.6)
--- NOTE | 2019-08-10 10:55 | NUR ---
WOUND CARE NOTE: Added patient to wound care monitoring list due to intubation status and low Srinivas score of 14. Patient is 44 years old male with admitting diagnosis of VF/VT Cardiopulmonary Arrest. Patient is resting in ICU bed in Rm. 112. Patient is intubated,sedated and mechanically ventilated. Patient appears to be in no pain using Tejada Jimenez Faces Pain Scale. Skin assessment done with the assistance of patient's nurse, LAKEISHA Hancock. No wounds noted other than tiny (0.5x0.3cm) dry, scabbed skin tear to patient's Rt upper chest, Rt femoral IABP site with CDI dressing and Rt anterior ankle puncture wound from previous IO site w/ intact dressing. No pressure injury noted. Patent is receiving BID/PRN cleaning and application of Barrier cream to sacral/ buttocks as preventative. Patient tolerated well, repositioned for comfort facing his Rt. side, redistributed pressure points with pillows and elevated BLE on pillows. LAKEISHA Hancock at bedside. RECOMMENDATION: Nursing to continue with BID/PRN cleaning and application of Barrier cream to sacral, buttocks as preventative, frequent turning and repositioning schedule as condition permits, redistribute pressure points with pillows, elevate heels on pillows, continue monitoring by wound care while patient is ventilated. Addendum: 08/10/19 at 1527 by Marleny Clements RN Amended: Links added.
[2019-08-10] MEDS: AMIODARONE 450mg/250ml AE 250 ML IV SCH (11:00)
--- NOTE | 2019-08-10 12:25 | NUR ---
Nutrition Assessment Notes please see attached link for complete assessment Est. Energy Needs ABW 96 k-1920 kcal (17-20 kcal/kg BW), Est. Protein Needs: 96-105 gms/day (1.0-1.1 gms/kg ABW). Addendum: 08/10/19 at [address] Amended: Links added.
--- NOTE | 2019-08-10 12:49 | NUR ---
DR. Lobo DAY AT BEDSIDE: ORDERS MD UPDATED ON PT'S CURRENT STATUS, TRENDING HEMODYNAMICS AND LABS FOR TODAY. ORDERS GIVEN AND TO BE CARRIED OUT. MD ASSESSING PATIENT AT BEDSIDE. INFORMED MD ON PT'S CURRENT GTT'S.
[2019-08-10] MEDS: POTASSIUM CHL 20MEQ/100ML 100 ML IV SCH ×2 (13:26→14:53)
[2019-08-10] MEDS: MIDAZOLAM DRIP 50 mg/50mL 50 ML IV SCH ×2 (15:09→22:41)
[2019-08-10] MEDS: CLINDAMYCIN 600MG IV 50 ML IV SCH (16:16)
[2019-08-10] MEDS ORDERED: PIPERACILLIN-TAZOB 3.375GM 100 ML IV SCH (18:00)
--- NOTE | 2019-08-10 19:35 | NUR ---
OPEN RECEIVED REPORT FROM DAY RN. ASSUMED CARE OF PATIENT, FULL CODE STATUS. PATIENT SEDATED ON VENT, SEE IV SPREAD SHEET FOR GTT'S AND TITRATIONS MADE. #8.0 ETT, 23 CM AT LIP. FIO2 AT 30%, +8 PEEP ON VENT. RIGHT NARE NGT CLAMPED, PLACEMENT VERIFIED. PATIENT HAS SWAN TO RIGHT GROIN, 80 CM AT THE HUB. +1 D.P PULSES PALPATED AT THIS TIME. CAP REFILL TO ESTEFANÍA LE < 3 SECONDS. DRESSING TO RIGHT GROIN CLEAN, DRY AND INTACT, NO HEMATOMA OR BLEEDING NOTED. KRAFT TO GRAVITY. PATIENT HAS RIGHT IJ TLC, PATENT AND INTACT. SKIN INTACT TO SACRAL AREA. WILL CONTINUE TO OFF LOAD PRESSURE AREAS WITH PILLOWS. CONTINUE TO MONITOR. SEE ASSEMBLER HANDBAGS AND V/S FLOW SHEET FOR FURTHER PATIENT INFORMATION.
--- NOTE | 2019-08-10 20:48 | NUR ---
FAMILY CALL PTS MOTHER CALLED FOR UPDATE. PASSWORD CONFIRMED. UPDATED MOTHER ON PT CONDITION AND PLAN OF CARE. ALL QUESTIONS AND CONCERNS ADDRESSED AT THIS TIME.
[2019-08-10] MEDS: ATORVASTATIN 20 MG TAB PO SCH (22:37)
--- NOTE | 2019-08-10 23:34 | NUR ---
SPOKE WITH MD BROWN REGARDING PT TUBE FEEDINGS. FOR DAYSHIFT PT WAS PREVIOUSLY HYPOGLYCEMIC, LAST BLOOD GLUCOSE WAS 80 AT 2240. DIETARY RECOMMENDS JEVITY 1.2 WITH A GOAL RATE OF 60 ML/HR. MD BROWN SAID OKAY TO START LONG TUBE IS POSITIVELY PLACED.
[2019-08-11] VITALS (103 sets, daily range): BP systolic 30–145; BP diastolic 13–93
--- NOTE | 2019-08-11 00:35 | NUR ---
TUBE FEEDINGS INITIATED STARTED JEVITY 1.2 PER DIETARY RECOMMENDATION, VERIFIED WITH MD BROWN. STARTED AT 10 ML/HR. GOAL RATE IS 60 ML/HR. TUBE PLACEMENT CONFIRMED VIA AUSCULTATION AND GASTRIC CONTENT ASPIRATION. WILL ASSESS PT TOLERANCE AND INCREASE RATE TOLERATED.
[2019-08-11] MEDS: IPRATROPIUM BROM 0.5 MG/2.5ML INH SOL NEB SCH ×4 (00:48→18:41)
[2019-08-11] MEDS: ALBUTEROL SULF 2.5 MG/0.5ML(0.5%) NEB SOLN NEB SCH ×4 (00:49→18:41)
[2019-08-11] MEDS: fentaNYL Drip 2500mCg/250mlNS 250 ML IV SCH ×2 (00:57→18:59)
[2019-08-11] MEDS: AMIODARONE 450mg/250ml AE 250 ML IV SCH ×2 (03:23→18:59)
--- NOTE | 2019-08-11 04:00 | NUR ---
PT CARE GAVE PT CHG BATH AND DID FULL KRISTIN/GOWN CHANGE. ORAL CARE DONE AND PT TURNED. PT TOLERATED WELL WITH STABLE VITAL SIGNS.
[2019-08-11 04:26] LABS: Basophils # (auto) 0 10 ^3/uL (0-0.2); Basophils % (auto) 0.4 % (0.0-2.0); Eosinophils # (auto) 0.5 10 ^3/uL (0-0.8); Eosinophils % (auto) 6.2 % (0.0-7.0); Hematocrit 36.4 % (41.0-53.0); Hemoglobin 12.2 g/dL (13.5-17.5); Lymphocytes # (auto) 1.2 10 ^3/uL (0.4-5.4); Lymphocytes % (auto) 15.5 % (10.0-50.0); Mean Corpuscular Hemoglobin 31.2 pg (28.0-32.0); Mean Corpuscular Hgb Conc. 33.4 g/dL (32.0-36.0); Mean Corpuscular Volume 93.3 fL (80.0-100.0); Monocytes # (auto) 0.8 10 ^3/uL (0-1.3); Monocytes % (auto) 9.6 % (0.0-12.0); Neutrophils # (auto) 5.5 10 ^3/uL (1.6-8.6); Neutrophils % (auto) 68.3 % (37.0-80.0); Nucleated Red Blood Cells % 0.1 %; Platelet Count (auto) 86 10^3/uL (140-450); Red Cell Distribution Width 13.6 % (11.8-14.3)
[2019-08-11 04:43] LABS: Albumin 2.7 g/dL (3.4-5.0); Calcium 7.7 mg/dL (8.5-10.1); Magnesium 2.2 mg/dL (1.6-2.6); Potassium 3.4 mmol/L (3.5-5.1)
[2019-08-11 04:46] LABS: Bilirubin, Total 0.5 mg/dL (0.2-1.0); Total Protein 6.1 g/dL (6.4-8.2)
--- NOTE | 2019-08-11 05:38 | NUR ---
LFA 20 G IV DISCONTINUED, BLOODY DRAINAGE OOZING FROM SITE. CATHETER IN TACT UPON REMOVAL. PRESSURE DRESSING APPLIED.
[2019-08-11] MEDS: MEROPENEM 1GM IVPB 100 ML IV SCH ×3 (06:03→22:09)
[2019-08-11] MEDS: FUROSEMIDE 40 MG/4 ML VIAL IV SCH ×2 (06:05→18:05)
[2019-08-11] MEDS: InsuLIN REG 1unit/0.01ml Soln (100units/ml) SC SCH ×4 (06:12→22:00)
[2019-08-11] MEDS: ACCU-CHEK COMFORT CURVE STRIP VI SCH ×4 (06:12→22:21)
--- NOTE | 2019-08-11 06:20 | NUR ---
SPOKE WITH HOSPITALIST REGARDING PTS K OF 3.4. NEW ORDERS RECEIVED TO REPLACE WITH 20 MEQS K RIDER.
[2019-08-11] MEDS ORDERED: POTASSIUM CHL 20MEQ/100ML 100 ML IV ONE (06:30)
--- NOTE | 2019-08-11 06:34 | NUR ---
TUBE FEEDINGS REASSESSED PT TOLERANCE. 20ML RESIDUALS NOTED. RATE INCREASED TO 15ML/HR.
--- NOTE | 2019-08-11 07:25 | NUR ---
REPORT GIVEN TO CAMRYN SUAZO. CARE ENDORSED.
--- NOTE | 2019-08-11 07:25 | NUR ---
REPORT RECEIVED FROM REED CLEANER NURSE. PATIENT RESTING IN BED AT THIS TIME INTUBATED AND SEDATED. RESPIRATIONS EVEN AND UNLABORED. NO SIGNS OF ACUTE DISTRESS NOTED. BED IN LOW POSITION. WILL CONTINUE TO MONITOR.
--- NOTE | 2019-08-11 07:44 | NUR ---
DR Jenny DAY AT BEDSIDE TO ASSESS PATIENT AND DISCUSS PLAN OF CARE. ALL ORDERS NOTED IN CHART.
[2019-08-11] MEDS: CLINDAMYCIN 600MG IV 50 ML IV SCH ×4 (08:15→23:53)
[2019-08-11] MEDS: DOBUTamine 1000MCG/ML 250 ML IV SCH ×3 (08:15→22:08)
[2019-08-11] MEDS: MIDAZOLAM DRIP 50 mg/50mL 50 ML IV SCH ×2 (08:15→15:03)
--- NOTE | 2019-08-11 08:30 | NUR ---
SEDATION ADJUSTMENT INCREASED PATIENTS SEDATION PATIENTS RR IS IN 30-40S ON VENTILATOR AND PIP 40-50 BUCKING VENT AND STACKING BREATHS. WILL CONTINUE TO MONITOR AND ADJUST SEDATIONS NEEDED.
[2019-08-11] MEDS: PROPOFOL 100 ML IV SCH ×3 (08:34→16:23)
[2019-08-11] MEDS: ASPirin 81 mg TAB PO SCH (10:46)
[2019-08-11] MEDS: THIAMINE 100mg/ml INJ (200mg/2ml VIAL) IV SCH (10:46)
[2019-08-11] MEDS: TICAGRELOR 90 MG TAB GT SCH ×2 (10:46→22:08)
[2019-08-11] MEDS: PANTOPRAZOLE 40 MG/10 ML VIAL INJ IV SCH (10:46)
[2019-08-11] MEDS: FOLIC ACID 1 MG in D5W 5% 50 ML IV SCH (10:51)
--- NOTE | 2019-08-11 13:03 | NUR ---
SPOKE TO DR Jenny DAY TO INFORM THAT PATIENT POTASSIUM LEVEL AFTER THIS MORNING REPLACEMENT IS 2.9. PER MD ADMINISTER 60MEQ IVPB NOW AND 50MEQ POTASSIUM EFFERVESCENT VIA NGT TONIGHT AND DAILY STARTING TOMORROW MORNING. ALL ORDERS NOTED IN CHART.
--- NOTE | 2019-08-11 13:15 | NUR ---
DR SIMMONS AT BEDSIDE TO ASSESS PATIENT AND DISCUSS PLAN OF CARE. MD MADE AWARE THAT WHEN SEDATIONS DECREASED PATIENTS RR 30-40S, PIP 40-50 AND BUCKING VENT STACKING BREATHS, SO SEDATIONS INCREASED PER PROTOCOL.
--- NOTE | 2019-08-11 13:45 | NUR ---
UPDATED DAUGHTER ON PATIENTS TRANSFER TO TELEMETRY FLOOR. DAUGHTER IS INSISTENT ON PATIENT NEEDING A SITTER AT BEDSIDE. INFORMED DAUGHTER THAT PATIENT IS CLOSE TO NURSES STATION AND BED ALARM IS ACTIVATED AND THAT I WILL INFORM STEVEDORE HOLD OF REQUEST. STEVEDORE HOLD SAGAR MADE AWARE OF DAUGHTERS REQUEST. INFORMED RAMOS TENORIO RN OF DAUGHTERS REQUEST WELL. Addendum: 08/11/19 at 1354 by Katie Espinoza RN WRONG PATIENT
[2019-08-11] MEDS: POTASSIUM CHL 20MEQ/100ML 100 ML IV SCH ×3 (14:01→18:06)
--- NOTE | 2019-08-11 14:59 | NUR ---
DR CHAVARRIA AT BEDSIDE TO ASSESS PATIENT AND DISCUSS PLAN OF CARE. MD MADE AWARE THAT PATIENT IS UNABLE TO GO TO CT AT THIS TIME DUE TO RESPIRATORY STATUS.
--- NOTE | 2019-08-11 19:35 | NUR ---
OPEN RECEIVED REPORT FROM DAY RN. ASSUMED CARE OF PATIENT, FULL CODE STATUS. PATIENT SEDATED ON VENT, SEE IV SPREAD SHEET FOR GTT'S AND TITRATIONS MADE. #8.0 ETT, 23 CM AT LIP. FIO2 AT 30%, +8 PEEP ON VENT. RIGHT NARE NGT CLAMPED, PLACEMENT VERIFIED. PATIENT HAS SWAN TO RIGHT GROIN, 80 CM AT THE HUB. +1 D.P PULSES PALPATED AT THIS TIME. CAP REFILL TO ESTEFANÍA LE < 3 SECONDS. DRESSING TO RIGHT GROIN CLEAN, DRY AND INTACT, NO HEMATOMA OR BLEEDING NOTED. KRAFT TO GRAVITY. PATIENT HAS RIGHT IJ TLC, PATENT AND INTACT. SKIN INTACT TO SACRAL AREA. WILL CONTINUE TO OFF LOAD PRESSURE AREAS WITH PILLOWS. CONTINUE TO MONITOR. SEE RIVERBOAT MASTER AND V/S FLOW SHEET FOR FURTHER PATIENT INFORMATION.
--- NOTE | 2019-08-11 20:28 | NUR ---
TUBE FEEDING ASSESSMENT PT CURRENTLY HAS JEVITY 1.2 RUNNING AT 20 ML/HR. TUBE IS POSITIVELY PLACED VIA AUSCULTATION AND GASTRIC CONTENT ASPIRATION. RESIDUALS NOTED TO BE 20 ML. RATE REMAINS AT 20 ML DUE TO PT HAVING HYPOACTIVE BOWEL SOUNDS AND NO BM. WILL REASSESS PT TOLERANCE.
--- NOTE | 2019-08-11 20:58 | NUR ---
FAMILY CALL SPOKE WITH PTS MOTHER SANDIE. PASSWORD VERIFIED. UPDATED HER ON PT CONDITION AND PLAN OF CARE. ALL QUESTIONS AND CONCERNS ADDRESSED AT THIS TIME.
--- NOTE | 2019-08-11 21:23 | NUR ---
FAMILY CALL SPOKE WITH PTS GIRLFRIEND, RONNY. PASSWORD VERIFIED. UPDATED HER ON PT CONDITION AND PLAN OF CARE. ALL QUESTIONS AND CONCERNS ADDRESSED AT THIS TIME.
[2019-08-11] MEDS ORDERED: POTASSIUM EFFERVESENT TAB 25 MEQ GT ONE (22:00)
[2019-08-11] MEDS: ATORVASTATIN 20 MG TAB PO SCH (22:08)
[2019-08-12] VITALS (100 sets, daily range): BP systolic 33–117; BP diastolic 13–75
--- NOTE | 2019-08-12 00:26 | NUR ---
TUBE FEEDING ASSESSMENT PT CURRENTLY HAS JEVITY 1.2 RUNNING AT 20 ML/HR. TUBE IS POSITIVELY PLACED VIA AUSCULTATION AND GASTRIC CONTENT ASPIRATION. RESIDUALS NOTED TO BE 20 ML. RATE REMAINS AT 20 ML DUE TO PT HAVING HYPOACTIVE BOWEL SOUNDS AND NO BM. WILL REASSESS PT TOLERANCE AND INCREASE RATE PRN.
[2019-08-12] MEDS: IPRATROPIUM BROM 0.5 MG/2.5ML INH SOL NEB SCH ×4 (00:27→18:32)
[2019-08-12] MEDS: ALBUTEROL SULF 2.5 MG/0.5ML(0.5%) NEB SOLN NEB SCH ×4 (00:27→18:32)
--- NOTE | 2019-08-12 01:41 | NUR ---
CALLED RADIOLOGY TO SEE IF PT CAN MAKE IT OVER ON THIS SHIFT. RADIOLOGY SAYS THEY'D PREFER TO DO IT ON DAYSHIFT IN THE AM.
--- NOTE | 2019-08-12 02:00 | NUR ---
PT CARE GAVE PT CHG BATH AND DID FULL KRISTIN/GOWN CHANGE. ORAL CARE DONE AND PT TURNED. PT TOLERATED WELL WITH STABLE VITAL SIGNS.
[2019-08-12] MEDS: DOBUTamine 1000MCG/ML 250 ML IV SCH ×3 (04:03→18:38)
[2019-08-12 04:13] LABS: Basophils # (auto) 0 10 ^3/uL (0-0.2); Basophils % (auto) 0.2 % (0.0-2.0); Eosinophils # (auto) 0.5 10 ^3/uL (0-0.8); Eosinophils % (auto) 6.8 % (0.0-7.0); Hematocrit 36.1 % (41.0-53.0); Lymphocytes # (auto) 0.9 10 ^3/uL (0.4-5.4); Lymphocytes % (auto) 13.7 % (10.0-50.0); Mean Corpuscular Hgb Conc. 33.2 g/dL (32.0-36.0); Mean Corpuscular Volume 93.3 fL (80.0-100.0); Monocytes # (auto) 0.5 10 ^3/uL (0-1.3); Monocytes % (auto) 8.2 % (0.0-12.0); Neutrophils # (auto) 4.7 10 ^3/uL (1.6-8.6); Neutrophils % (auto) 71.1 % (37.0-80.0); Platelet Count (auto) 100 10^3/uL (140-450); Red Blood Cells 3.86 10^6/uL (4.5-5.90); Red Cell Distribution Width 13.5 % (11.8-14.3); White Blood Cell 6.6 10^3/uL (4.4-10.8)
[2019-08-12 04:29] LABS: Albumin 2.4 g/dL (3.4-5.0); Calcium 7.7 mg/dL (8.5-10.1); Potassium 3.8 mmol/L (3.5-5.1)
[2019-08-12 04:33] LABS: BUN/Creatinine Ratio 12.4; Bilirubin, Total 0.6 mg/dL (0.2-1.0)
[2019-08-12] MEDS: FUROSEMIDE 40 MG/4 ML VIAL IV SCH ×2 (05:58→17:52)
[2019-08-12] MEDS: PROPOFOL 100 ML IV SCH ×2 (05:58→10:11)
[2019-08-12] MEDS: MEROPENEM 1GM IVPB 100 ML IV SCH ×3 (05:59→21:58)
--- NOTE | 2019-08-12 06:02 | NUR ---
TUBE FEEDING RATE INCREASED TO 25 ML/HR. RESIDUALS WERE < 10 ML AND PT TOLERATING WELL. BOWEL SOUNDS PRESENT.
[2019-08-12] MEDS: ACCU-CHEK COMFORT CURVE STRIP VI SCH ×4 (06:43→22:08)
[2019-08-12] MEDS: InsuLIN REG 1unit/0.01ml Soln (100units/ml) SC SCH ×4 (06:43→22:00)
--- NOTE | 2019-08-12 07:35 | NUR ---
REPORT REPORT RECEIVED FROM GUY RNMIKI. BEDSIDE CHECK DONE. PT SEDATED AND INTUBATED WITH VSS. CONTINUE TO MONITOR.
--- NOTE | 2019-08-12 07:54 | NUR ---
DR PANG AT BEDSIDE TO ASSESS PT AND UPDATE PLAN OF CARE. NO NEW ORDERS GIVEN TO THIS RN AT THIS TIME.
--- NOTE | 2019-08-12 07:55 | NUR ---
PT TEACHING PT UNABLE TO BENEFIT FROM PT TEACHING PT SEDATED WHILE INTUBATED. Addendum: 08/12/19 at 2043 by Eli Saunders RN Amended: Links added.
--- NOTE | 2019-08-12 07:55 | NUR ---
ASSESSMENT PT RESTING IN BED, SEDATED AND INTUBATED. VENT SETTINGS: 8 FR ETT/24 AT THE LIP, TV 550, AC 16, 30% FIO2 AND PEEP OF 8. LUNGS CLEAR BUT DIMINISHED AT THE BASES POSTERIOR. O2 SAT 98%. TELE SR 93. PALPABLE PULSES TO ALL EXTREMITIES. GENERALIZED EDEMA NOTED. ABD SOFT WITH + BOWEL SOUNDS LAST BM WAS 08/08. KRAFT CATHETER DRAINING YELLOW URINE WITH SEDIMENT. DRESSING TO RIGHT ANKLE, PRIOR IO SITE. PT WITH IVF TO RIJ TLC. SITE BENIGN. THREE PERIPHERAL SL ALL PLACED 08/07. WILL DC TODAY. TURNED FOR COMFORT. OPTIFOAM TO SACRUM, SKIN UNDER IS CLEAR. BLISTER NOTED AT THE BAS OF PTS NECK, NEXT TO THE TLC DRESSING. PT WITH RED AREAS ON THE CHEST IN SHAPE OF DEFIB PADS. RAILS UP X4 AND BED IN LOW POSITION FOR PT SAFETY.CONTINUE TO MONITOR. Addendum: 08/12/19 at 2101 by Eli Saunders RN CARDIAC OUTPUT OF 6.8 AND CARDIAC INDEX OF 2.7.
[2019-08-12] MEDS: MIDAZOLAM DRIP 50 mg/50mL 50 ML IV SCH ×2 (08:00→17:29)
[2019-08-12] MEDS: AMIODARONE 450mg/250ml AE 250 ML IV SCH (09:20)
[2019-08-12] MEDS: POTASSIUM EFFERVESENT TAB 25 MEQ GT SCH (10:10)
[2019-08-12] MEDS: TICAGRELOR 90 MG TAB GT SCH ×2 (10:10→21:57)
[2019-08-12] MEDS: ASPirin 81 mg TAB PO SCH (10:10)
[2019-08-12] MEDS: CLINDAMYCIN 600MG IV 50 ML IV SCH ×3 (10:10→21:58)
[2019-08-12] MEDS: PANTOPRAZOLE 40 MG/10 ML VIAL INJ IV SCH (10:11)
[2019-08-12] MEDS: fentaNYL Drip 2500mCg/250mlNS 250 ML IV SCH (10:17)
[2019-08-12] MEDS ORDERED: IOHEXOL 350 MG/ML 100ML IJ ONE (10:17)
--- NOTE | 2019-08-12 10:30 | NUR ---
PT TRANSPORTED TO CT VIA BED WITH PORTABLE VENTILATOR AND SADDLE STITCHING MACHINE OPERATOR IN PLACE, ACCOMPANIED BY MAGDALENO RT, AND [employer] [facility],
--- NOTE | 2019-08-12 11:00 | NUR ---
RT Transport Note: Patient transported to Radiology with LAKEISHA De La Paz. Patient transported on panel monitor and transport vent with alarms set and audible. Patient returned to room and placed back on ventilator with previous settings. Transport completed without incident.
--- NOTE | 2019-08-12 11:15 | NUR ---
PT RETURNED TO ROOM FROM CT. CONNECTED TO BEDSIDE MONITORING AND VENTILATOR.
--- NOTE | 2019-08-12 11:36 | NUR ---
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 PAGED AND INFORMED DR GAITAN OF THE RESULTS.
--- NOTE | 2019-08-12 11:40 | NUR ---
DR HADLEY PT SEEN AND EXAMINED BY DR HADLEY AND II UPDATED HIM ON THE PT'S CURRENT CONDITION. HE REMOVED THE SWAN ZENA CATHETER AND HELD MANUAL PRESSURE X 10 MINUTES AND THEN APPLIED A PRESSURE DRESSING.
--- NOTE | 2019-08-12 11:54 | NUR ---
Nutrition Follow-up Notes Wt.: 124.4 kg Pt`s ventilated off floor to radiology per RN. pt is currently NPO on EN support with Jevity @ 25 ml/hr providing 720 kcals and 32 gm proteins Est. Energy Needs ABW 96 k-1920 kcal (17-20 kcal/kg BW), Est. Protein Needs: 96-105 gms/day (1.0-1.1 gms/kg ABW). Labs: GLU 117 H, CA 7.7 L, ALB 2.4 L. GI: Pt had 1 BM 08/06 per RN doc. Skin: Srinivas scale 14 mod risk. Please refer to wound assessment report for full details PES: 1) Altered nutrition related lab values r.t current chronic medical condition aeb mod hypoalb hyperglycemia, hypocalcemia, elev TG Decreased nutrient needs r/t adiposity aeb pt`s high BMI of 43.3 kgm2 Impaired swallowing r.t current medical condition aeb pt`s intubated sedated with order of NPO Recommendations: 1) advance diet as medically feasible. 2) advance EN support with Jevity 1.2 @ 60 ml/hr per MD approval. 3) refer to [employer] dietitan on DC. 4) continue current plan of care
--- NOTE | 2019-08-12 11:57 | NUR ---
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 ALSO CTA CHEST NEGATIVE FOR PE. ALSO MADE HER AWARE THAT THE RADIOLOGIST WHO REPORTED THE RESULTS TO ME, DR RUDI ORDAZ, ASKED IF PT WAS POSITIVE FOR COVID AND WHEN TOLD NO, SHE RECOMMENDED RETESTING. DR GAITAN SAID SHE WOULD REVIEW THE REPORTS.
[2019-08-12] MEDS: FOLIC ACID 1 MG in D5W 5% 50 ML IV SCH (12:10)
[2019-08-12] MEDS: THIAMINE 100mg/ml INJ (200mg/2ml VIAL) IV SCH (12:29)
--- NOTE | 2019-08-12 19:30 | NUR ---
REPORT REPORT GIVEN TO MIKI TOVAR RN.
--- NOTE | 2019-08-12 19:33 | NUR ---
OPEN RECEIVED REPORT FROM DAY RN AND ROOM CHECK WAS DONE. ASSUMED CARE OF PATIENT, FULL CODE STATUS. PATIENT SEDATED ON VENT, SEE IV SPREAD SHEET FOR GTT'S AND TITRATIONS MADE. #8.0 ETT, 24 CM AT LIP. FIO2 AT 30%, +8 PEEP ON VENT. RIGHT NARE NGT RUNNING TUBE FEEDINGS. PLACEMENT VERIFIED. PATIENT HAD SWAN TO RIGHT GROIN, WHICH HAS BEEN REMOVED EARLIER TODAY BY MD. +1 D.P PULSES PALPATED AT THIS TIME. CAP REFILL TO ESTEFANÍA LE < 3 SECONDS. PRESSURE DRESSING TO RIGHT GROIN CLEAN, DRY AND INTACT, NO HEMATOMA OR BLEEDING NOTED, JUST SMALL AMOUNT OF OLD BRUISING. KRAFT TO GRAVITY. PATIENT HAS RIGHT IJ TLC, PATENT AND INTACT. SKIN INTACT TO SACRAL AREA. WILL CONTINUE TO OFF LOAD PRESSURE AREAS WITH PILLOWS. CONTINUE TO MONITOR. SEE HOROLOGIST AND V/S FLOW SHEET FOR FURTHER PATIENT INFORMATION.
--- NOTE | 2019-08-12 20:40 | NUR ---
TUBE FEEDING ASSESSMENT PT RECEIVING JEVITY 1.2 WITH A GOAL RATE OF 60 ML/HR. FEEDINGS HELD ON DAYSHIFT FOR HIGH RESIDUALS. WHEN RESIDUALS ASSESSED, THERE WAS NOTED TO BE <10 ML. FEEDINGS RESTARTED AT A RATE OF 30 ML/HR. BOWEL SOUNDS PRESENT. WILL CONTINUE TO MONITOR AND ASSESS PT.
--- NOTE | 2019-08-12 21:00 | NUR ---
SEDATION VACATION NOT APPROPRIATE AT THIS TIME. NO PLANS FOR EXTUBATION AND PT UNABLE TO TOLERATE. Addendum: 08/12/19 at 2240 by MIKI RANGEL RN RN Amended: Links added.
--- NOTE | 2019-08-12 21:14 | NUR ---
FAMILY CALL SPOKE WITH PTS MOTHER SANDIE-PASSWORD VERIFIED. UPDATED HER ON PT CONDITION AND PLAN OF CARE. MADE HER AWARE THAT PT HAD PENDING TESTS TODAY- EEG/CTA CHEST/ HEAD CT. MADE HER AWARE THAT DR. GAITAN ATTEMPTED TO CONTACT THE LEGAL NEXT OF KIN- THE SON LAZ, BUT LAZ DID NOT ANSWER. SANDIE REQUESTS TO BE CALLED BECAUSE SHE IS MORE AVAILABLE AND EASIER TO CONTACT THAN LAZ WHO WORKS AND DOES NOT HAVE ACCESS TO HIS CELL PHONE DURING THE DAY. EXPLAINED THAT THE SON IS THE LEGAL NEXT OF KIN, BUT SANDIE INSISTS THAT THEY CONTACT HER INSTEAD. WILL FOLLOW UP.
[2019-08-12] MEDS: AMIODARONE HCL 200 MG TAB PO SCH (21:58)
[2019-08-12] MEDS: ATORVASTATIN 20 MG TAB PO SCH (21:59)
[2019-08-13] VITALS (104 sets, daily range): BP systolic 94–124; BP diastolic 50–75
[2019-08-13] MEDS: ALBUTEROL SULF 2.5 MG/0.5ML(0.5%) NEB SOLN NEB SCH ×3 (00:10→11:53)
[2019-08-13] MEDS: IPRATROPIUM BROM 0.5 MG/2.5ML INH SOL NEB SCH ×3 (00:10→11:54)
[2019-08-13] MEDS: fentaNYL Drip 2500mCg/250mlNS 250 ML IV SCH ×2 (00:49→12:33)
[2019-08-13] MEDS: DOBUTamine 1000MCG/ML 250 ML IV SCH ×4 (00:51→21:59)
[2019-08-13] MEDS: PROPOFOL 100 ML IV SCH ×6 (00:52→22:00)
[2019-08-13] MEDS: MIDAZOLAM DRIP 50 mg/50mL 50 ML IV SCH ×3 (03:29→23:29)
--- NOTE | 2019-08-13 03:44 | NUR ---
PT CARE GAVE PT CHG BATH AND DID FULL KRISTIN/GOWN CHANGE. ORAL CARE DONE AND PT TURNED. PT TOLERATED WELL WITH STABLE VITAL SIGNS AND NO DISTRESS. INTACT BLISTERS NOTED TO RIGHT IJ/ RIGHT UPPER CHEST SITE. PHOTOS TAKEN AND WOUND CARE PAPER PLACED IN ENVELOPE.
[2019-08-13 04:45] LABS: Basophils # (auto) 0 10 ^3/uL (0-0.2); Basophils % (auto) 0.2 % (0.0-2.0); Eosinophils # (auto) 0.4 10 ^3/uL (0-0.8); Eosinophils % (auto) 4.2 % (0.0-7.0); Hematocrit 38.6 % (41.0-53.0); Hemoglobin 12.8 g/dL (13.5-17.5); Lymphocytes # (auto) 0.7 10 ^3/uL (0.4-5.4); Lymphocytes % (auto) 7.4 % (10.0-50.0); Mean Corpuscular Hemoglobin 31.1 pg (28.0-32.0); Mean Corpuscular Hgb Conc. 33.2 g/dL (32.0-36.0); Mean Corpuscular Volume 93.6 fL (80.0-100.0); Monocytes # (auto) 0.5 10 ^3/uL (0-1.3); Monocytes % (auto) 5.3 % (0.0-12.0); Neutrophils # (auto) 8.2 10 ^3/uL (1.6-8.6); Neutrophils % (auto) 82.9 % (37.0-80.0); Nucleated Red Blood Cells % 0.1 %; Platelet Count (auto) 124 10^3/uL (140-450); Red Blood Cells 4.12 10^6/uL (4.5-5.90); Red Cell Distribution Width 13.5 % (11.8-14.3); White Blood Cell 9.9 10^3/uL (4.4-10.8)
[2019-08-13 05:25] LABS: Albumin 2.4 g/dL (3.4-5.0); BUN/Creatinine Ratio 15.2; Bilirubin, Total 0.6 mg/dL (0.2-1.0); Calcium 8.1 mg/dL (8.5-10.1); Total Protein 5.9 g/dL (6.4-8.2)
[2019-08-13] MEDS: CLINDAMYCIN 600MG IV 50 ML IV SCH ×3 (06:00→21:28)
[2019-08-13] MEDS: MEROPENEM 1GM IVPB 100 ML IV SCH ×3 (06:01→21:29)
[2019-08-13] MEDS: FUROSEMIDE 40 MG/4 ML VIAL IV SCH ×2 (06:01→18:04)
[2019-08-13] MEDS: InsuLIN REG 1unit/0.01ml Soln (100units/ml) SC SCH ×4 (06:33→21:24)
[2019-08-13] MEDS: ACCU-CHEK COMFORT CURVE STRIP VI SCH ×4 (06:33→21:24)
--- NOTE | 2019-08-13 07:26 | NUR ---
REPORT GIVEN AND CARE ENDORSED TO CAMRYN ROBLES.
[2019-08-13] MEDS: NOREPINEPHRINE 8 MG/250ML KIT 250 ML IV SCH (08:52)
--- NOTE | 2019-08-13 09:00 | NUR ---
SEDATION VACATION HELD AT THIS TIME DUE TO INCREASED WORK OF BREATHING Addendum: 08/13/19 at 1058 by Sergey Anderson RN Amended: Links added.
[2019-08-13] MEDS: TICAGRELOR 90 MG TAB GT SCH ×2 (09:34→21:26)
[2019-08-13] MEDS: ASPirin 81 mg TAB PO SCH (09:35)
[2019-08-13] MEDS: THIAMINE 100mg/ml INJ (200mg/2ml VIAL) IV SCH (09:35)
[2019-08-13] MEDS: POTASSIUM EFFERVESENT TAB 25 MEQ GT SCH (09:35)
[2019-08-13] MEDS: FOLIC ACID 1 MG in D5W 5% 50 ML IV SCH (09:35)
[2019-08-13] MEDS: PANTOPRAZOLE 40 MG/10 ML VIAL INJ IV SCH (09:35)
[2019-08-13] MEDS: AMIODARONE HCL 200 MG TAB PO SCH ×2 (09:36→21:25)
--- NOTE | 2019-08-13 11:15 | NUR ---
WOUND CARE NOTE: IN TO SEE PATIENT AT THIS TIME PER WOUND CARE CONSULT REQUEST. PATIENT HAS NEW WOUND CONCERN NOTED TO THE RIGHT UPPER CHEST/NECK. PATIENT IS NOTED TO HAVE WHAT APPEARS TO BE A TAPE ALLERGY, WITH SERUM FILLED BLISTERS NOTED TO SKIN. NO OPEN OR DRAINING AREAS NOTED. LEFT OPEN TO AIR. PATIENT CONTINUES TO BE INTUBATED, SEDATED, CURRENT ELISEO SCORE IS 10. RECOMMENDATIONS AT THIS TIME: AVOID TAPE TO SKIN. IF MUST APPLY TAPE, APPLY SUREPREP BARRIER FILM DIRECTLY TO SKIN PRIOR TO TAPE APPLICATION, EOD/PRN DRESSING CHANGE TO RIGHT UPPER CHEST/NECK BLISTERS IF OPEN, CONTINUATION WITH ALL OTHER WOUND CARE ORDERS PREVIOUSLY PRESCRIBED BY MD. WOUND CARE TEAM WILL CONTINUE TO MONITOR. Addendum: 08/13/19 at 1446 by Catherine Zepeda RN Amended: Links added.
--- NOTE | 2019-08-13 11:54 | NUR ---
TEMP 100.2 COOLING MEASURES APPLIED
--- NOTE | 2019-08-13 12:35 | NUR ---
SPUTUM SAMPLE COLLECTED AND SENT TO LAB.
--- NOTE | 2019-08-13 16:05 | NUR ---
assessment Patient is a 44 year old male who is on a vent in ICU. Per patients margo Reyes prior to admission patient lived home with his girlfriend and was independent. Per Eric patients girlfriend call 911 due to chest pain. Patient had no need for DME. I informed Eric that patients post discharge needs to be determined after extubation and prior to discharge. Eric verbalized understanding. Addendum: 08/13/19 at 1608 by Hanane GODFREY Amended: Links added.
--- NOTE | 2019-08-13 19:30 | NUR ---
PM ASSESSMENT PT ON ETT TO VENT, SETTINGS AC16/TV550/FIO2 30%/PEEP5+, O2SAT 100%. ETT8.0/24@LL. SR ON THE MONITOR. NGT ON RT NARE, PLACEMENT CHECKED, INFUSING JEVITY @40ML/HR, 10ML RESIDUALS. KRAFT CATHETER DRAINING DARLENE GREEN URINE VIA GRAVITY. RT UPPER CHEST BLISTERS INTACT AND OPEN TO AIR, BUE AND BLE EDEMA NOTED. SAFETY PRECAUTIONS IN PLACE. WILL CONTINUE TO MONITOR.
[2019-08-13] MEDS: ATORVASTATIN 20 MG TAB PO SCH (21:25)
[2019-08-14] VITALS (98 sets, daily range): BP systolic 85–141; BP diastolic 16–90
[2019-08-14] MEDS: ALBUTEROL SULF 2.5 MG/0.5ML(0.5%) NEB SOLN NEB SCH ×4 (00:10→18:27)
[2019-08-14] MEDS: IPRATROPIUM BROM 0.5 MG/2.5ML INH SOL NEB SCH ×4 (00:10→18:27)
[2019-08-14] MEDS: fentaNYL Drip 2500mCg/250mlNS 250 ML IV SCH (02:19)
[2019-08-14] MEDS: DOBUTamine 1000MCG/ML 250 ML IV SCH ×3 (04:15→19:39)
[2019-08-14] MEDS: FUROSEMIDE 40 MG/4 ML VIAL IV SCH ×2 (04:16→17:44)
[2019-08-14] MEDS: CLINDAMYCIN 600MG IV 50 ML IV SCH ×2 (04:16→14:29)
[2019-08-14] MEDS: MEROPENEM 1GM IVPB 100 ML IV SCH (04:16)
--- NOTE | 2019-08-14 04:30 | NUR ---
TF RATE INCREASED FROM 40ML/HR TO 50ML/HR, RESIDUAL 35ML. PT TOLERATING WELL, SAFETY PRECAUTIONS IN PLACE. WILL CONTINUE TO MONITOR.
--- NOTE | 2019-08-14 04:30 | NUR ---
PER RT PREVIOUS CXR SHOW ETT 6CM AWAY FROM RADHA, ETT REPOSITIONED FROM 24@LL TO 25CM@LL. PT TOLERATING WELL, O2SAT 100%.
[2019-08-14 04:44] LABS: Basophils # (auto) 0 10 ^3/uL (0-0.2); Basophils % (auto) 0.3 % (0.0-2.0); Eosinophils # (auto) 0.5 10 ^3/uL (0-0.8); Eosinophils % (auto) 5.4 % (0.0-7.0); Hematocrit 40.1 % (41.0-53.0); Hemoglobin 13.5 g/dL (13.5-17.5); Lymphocytes # (auto) 0.9 10 ^3/uL (0.4-5.4); Lymphocytes % (auto) 9.4 % (10.0-50.0); Mean Corpuscular Hemoglobin 31.2 pg (28.0-32.0); Mean Corpuscular Hgb Conc. 33.7 g/dL (32.0-36.0); Mean Corpuscular Volume 92.8 fL (80.0-100.0); Monocytes # (auto) 0.8 10 ^3/uL (0-1.3); Neutrophils # (auto) 7.5 10 ^3/uL (1.6-8.6); Neutrophils % (auto) 76.9 % (37.0-80.0); Nucleated Red Blood Cells % 0.1 %; Platelet Count (auto) 138 10^3/uL (140-450); Red Blood Cells 4.32 10^6/uL (4.5-5.90); Red Cell Distribution Width 13.4 % (11.8-14.3); White Blood Cell 9.7 10^3/uL (4.4-10.8)
[2019-08-14 05:05] LABS: Potassium 3.7 mmol/L (3.5-5.1)
[2019-08-14 05:12] LABS: BUN/Creatinine Ratio 23.2; Calcium 8.3 mg/dL (8.5-10.1)
[2019-08-14] MEDS: PROPOFOL 100 ML IV SCH ×3 (05:55→15:30)
[2019-08-14] MEDS: InsuLIN REG 1unit/0.01ml Soln (100units/ml) SC SCH ×4 (05:57→21:26)
[2019-08-14] MEDS: ACCU-CHEK COMFORT CURVE STRIP VI SCH ×4 (05:58→21:38)
--- NOTE | 2019-08-14 08:25 | NUR ---
RT Transport Note: Patient transported to CT with LAKEISHA RANGEL. Patient transported to and from procedure on ventilator with previous ordered settings. Patient on monitoring tech with alarms set and audible, ambu-bag/mask connected to 02 tank. Patient returned to room with no adverse reaction noted. Transport completed without incident.
[2019-08-14] MEDS: NOREPINEPHRINE 8 MG/250ML KIT 250 ML IV SCH ×2 (08:52→21:15)
[2019-08-14] MEDS: MIDAZOLAM DRIP 50 mg/50mL 50 ML IV SCH ×2 (09:29→19:29)
[2019-08-14] MEDS: PANTOPRAZOLE 40 MG/10 ML VIAL INJ IV SCH (09:58)
[2019-08-14] MEDS: POTASSIUM EFFERVESENT TAB 25 MEQ GT SCH (09:59)
[2019-08-14] MEDS: THIAMINE 100mg/ml INJ (200mg/2ml VIAL) IV SCH (09:59)
[2019-08-14] MEDS: TICAGRELOR 90 MG TAB GT SCH ×2 (09:59→21:24)
[2019-08-14] MEDS: AMIODARONE HCL 200 MG TAB PO SCH (09:59)
[2019-08-14] MEDS: ASPirin 81 mg TAB PO SCH (09:59)
[2019-08-14] MEDS: FOLIC ACID 1 MG in D5W 5% 50 ML IV SCH (10:34)
[2019-08-14 11:20] LABS: Protein, Urine 107.2 mg/dL (0.0-11.9)
--- NOTE | 2019-08-14 12:10 | NUR ---
Nutrition Follow-up Notes Wt.: 128.0 kg Pt`s was intubated sedated with propofol @ 18.6 ml/hr provding 490 kcals from fats, no family by bedside. per RN pt off feeds for procedure and after that he had his meds. per RN will restart feeding with Jevity. per RN pt was tolerating feeds well. Est. Energy Needs ABW 96 k-1920 kcal (17-20 kcal/kg BW), Est. Protein Needs: 96-105 gms/day (1.0-1.1 gms/kg ABW). Labs: BUN 19 H, CA 8.3 L. GI: Pt had 1 BM 08/06 per RN doc. Skin: Srinivas scale 14 mod risk. Please refer to wound assessment report for full details PES: 1) Altered nutrition related lab values r.t current chronic medical condition aeb mod hypoalb hyperglycemia, hypocalcemia, elev TG Decreased nutrient needs r/t adiposity aeb pt`s high BMI of 43.3 kgm2 Impaired swallowing r.t current medical condition aeb pt`s intubated sedated with order of NPO Recommendations: 1) advance diet as medically feasible. 2) advance EN support with Jevity 1.2 @ 60 ml/hr per MD approval. 3) refer to [employer] dietitian on DC. 4) continue current plan of care
--- NOTE | 2019-08-14 12:36 | NUR ---
Resumed care at 0725, orders reviewed and ongoing assessments being done. Being treated for multiple problems and remains intubated and sedated. Dr. Soliz in unit at 0730. Discussed condition and plan of care. Per Dr. Soliz will order another CT Scan. Was escorted to radiology by Estela SUAZO, Ivonne WHITE and radiology staff at 0835 and returned to unit at 0900. Tolerated procedure and arrived back without incident. Dr. Bean in unit and rounded at 1020 am. Made him aware of repeat CT scan and pending carotid study. Per Dr. Bean will hold off CPAP trial and wait for all studies to be done and read. Dr. Oliver in unit at 1200 noon. Discussed condition and plan of care. Spoke with girlfriend Nery via phone.
[2019-08-14] MEDS ORDERED: MEROPENEM 1GM IVPB 100 ML IV SCH (15:00)
[2019-08-14 18:18] LABS: Potassium 3.9 mmol/L (3.5-5.1)
[2019-08-14 18:21] LABS: Magnesium 2.3 mg/dL (1.6-2.6)
--- NOTE | 2019-08-14 18:27 | NUR ---
Respiratory note: RECEIVED PT ON VENT V21, VENT CONNECTED TO RED OUTLET AND O2 SOURCE ALARMS ARE SET AND AUDIBLE. AMBU BAG AND MASK AT BEDSIDE. BS ARE DIMINISHED/FINE COURSE SXD FOR A SCANT AMOUNT OF THIN CLEAR. MED NEB TX GIVEN VIA AEROGEN. NO ADVERSE REACTION NOTED. RN AT BEDSIDE PT COMFORTABLY SEDATED. RT NAME AND PAGER ASSIGNMENT WRITTEN ON PTS ROOM BOARD. WILL CONTINUE TO MONITOR Q2H. PTS CURRENT TEMP AT THIS TIME READING 100.0F.
[2019-08-14] MEDS: MAGNESIUM SULFATE 1GM/100ML 100 ML IV SCH ×2 (18:32→19:25)
--- NOTE | 2019-08-14 18:46 | NUR ---
Noted increase in HR 117-125 starting 1630. Temperature also elevated 100.2 rectally. Cool bed bath given and maintaining with cooling measures. Noted to start having ectopy. Frequent PVC's and a 4 beats of VT. Contacted Dr. Hollins, fugitive detective at 1728. Had 4 beats of VT. Per Dr. Hollins discontinue Dobutamine gtt. MG and K level drawn and results pending. BP Stable. Dr. Hollins in unit at 1825 and viewed ECG, 2gm of Magnesium ordered and initiated. At 1744 had 12 beats of VT (Torsades).
--- NOTE | 2019-08-14 20:10 | NUR ---
Patient noted to go into Torsades rate 230s, no pulse noted, CPR initiated. See CODE blue sheet.
[2019-08-14] MEDS ORDERED: SODIUM CHLORIDE 0.9% 1,000 ML IV ONE (20:15)
--- NOTE | 2019-08-14 20:16 | NUR ---
ROSC achieved; hospitalist at bedside, new orders received.
[2019-08-14] MEDS ORDERED: AMIODARONE HCL 900 MG IV ONE (20:21)
[2019-08-14] MEDS ORDERED: FUROSEMIDE 40 MG/4 ML VIAL IV ONE (20:30)
[2019-08-14] MEDS ORDERED: METOPROLOL TARTRATE 1MG/1ML-5ML VIAL IV ONE (20:30)
--- NOTE | 2019-08-14 20:30 | NUR ---
Post CODE, patient mottled with RR high 30s and irregular, increased sedation for vent synchrony.
[2019-08-14] MEDS ORDERED: NOREPINEPHRINE 8 MG/250ML KIT 250 ML IV ONE (20:38)
[2019-08-14] MEDS ORDERED: AMIODARONE 450mg/250ml AE 250 ML IV SCH (20:39)
[2019-08-14] MEDS: ATORVASTATIN 20 MG TAB PO SCH (21:24)
[2019-08-14] MEDS: ACETAMINOPHEN 650 mg PER 20 mL UD GT PRN (21:24)
--- NOTE | 2019-08-14 21:30 | NUR ---
Spoke with Dr. Hollins, updated on CODE and current hemodynamics and medications. Orders received to keep Mag >2.0 and potassium >4.0.
[2019-08-14 21:40] LABS: Basophils # (auto) 0 10 ^3/uL (0-0.2); Basophils % (auto) 0.2 % (0.0-2.0); Eosinophils # (auto) 0.3 10 ^3/uL (0-0.8); Eosinophils % (auto) 1.9 % (0.0-7.0); Hematocrit 39.2 % (41.0-53.0); Hemoglobin 12.7 g/dL (13.5-17.5); Lymphocytes # (auto) 1.6 10 ^3/uL (0.4-5.4); Lymphocytes % (auto) 8.8 % (10.0-50.0); Mean Corpuscular Hemoglobin 30.3 pg (28.0-32.0); Mean Corpuscular Hgb Conc. 32.4 g/dL (32.0-36.0); Mean Corpuscular Volume 93.5 fL (80.0-100.0); Monocytes # (auto) 0.5 10 ^3/uL (0-1.3); Monocytes % (auto) 2.9 % (0.0-12.0); Neutrophils # (auto) 15.1 10 ^3/uL (1.6-8.6); Neutrophils % (auto) 86.2 % (37.0-80.0); Nucleated Red Blood Cells % 0.1 %; Platelet Count (auto) 187 10^3/uL (140-450); Red Blood Cells 4.19 10^6/uL (4.5-5.90); Red Cell Distribution Width 13.3 % (11.8-14.3); White Blood Cell 17.6 10^3/uL (4.4-10.8)
[2019-08-14 21:44] LABS: BUN/Creatinine Ratio 20.8; Calcium 7.2 mg/dL (8.5-10.1); Lactic Acid w/Reflex 3.8 mmol/L (0.4-2.0); Magnesium 2.5 mg/dL (1.6-2.6); Potassium 3.6 mmol/L (3.5-5.1)
[2019-08-14 21:50] LABS: Bilirubin, Total 0.4 mg/dL (0.2-1.0); Total Protein 5.5 g/dL (6.4-8.2)
--- NOTE | 2019-08-14 22:07 | NUR ---
Hospitalist paged regarding lactic and WBC count.
--- NOTE | 2019-08-14 22:24 | NUR ---
Respiratory note: AT BEDSIDE FOR ROUTINE VENT CHECK. FIO2 TITRATED TO 60% FIO2. LAKEISHA FARR MADE AWARE. WILL CONTINUE TO MONITOR. CURRENT TEMP READS 100.9F.
[2019-08-14] MEDS ORDERED: SODIUM CHLORIDE 0.9% 500 ML IV ONE (23:00)
[2019-08-14] MEDS ORDERED: POTASSIUM CHL 20MEQ/100ML 200 ML IV ONE (23:13)
[2019-08-14] MEDS ORDERED: MAGNESIUM SULFATE 1GM/100ML 100 ML IV PRN (23:15)
[2019-08-15] VITALS (102 sets, daily range): BP systolic 86–147; BP diastolic 55–97
[2019-08-15] MEDS: PIPERACILLIN-TAZOB 3.375GM 100 ML IV SCH ×4 (00:01→18:17)
[2019-08-15] MEDS: POTASSIUM CHL 20MEQ/100ML 100 ML IV PRN ×6 (00:01→20:02)
[2019-08-15] MEDS: IPRATROPIUM BROM 0.5 MG/2.5ML INH SOL NEB SCH ×4 (00:45→18:11)
[2019-08-15] MEDS: ALBUTEROL SULF 2.5 MG/0.5ML(0.5%) NEB SOLN NEB SCH ×4 (00:45→18:11)
--- NOTE | 2019-08-15 00:45 | NUR ---
Respiratory note: AT BEDSIDE FOR ROUTINE VENT CHECK. FIO2 TITRATED TO 40% FIO2. LAKEISHA DANIEL MADE AWARE. MED NEB TX GIVEN VIA AEROGEN. WILL CONTINUE TO MONITOR. CURRENT TEMP READS 100.0F.
--- NOTE | 2019-08-15 02:00 | NUR ---
Right IJ TLC dressing changed using sterile technique.
--- NOTE | 2019-08-15 02:23 | NUR ---
Respiratory note: AT BEDSIDE FOR ROUTINE VENT CHECK. FIO2 TITRATED TO 35% FIO2. LAKEISHA DANIEL MADE AWARE. WILL CONTINUE TO MONITOR. CURRENT TEMP READS 99.3F.
[2019-08-15] MEDS: AMIODARONE 450mg/250ml AE 250 ML IV SCH ×2 (02:30→17:38)
[2019-08-15] MEDS: PROPOFOL 100 ML IV SCH ×4 (02:59→18:20)
--- NOTE | 2019-08-15 04:38 | NUR ---
Respiratory note: END OF SHIFT VENT CHECK. CURRENT TEMP READS 98.9F. FIO2 TITRATED TO 30%. LAKEISHA FARR COMMUNICATED ON O2 CHANGE. WILL HAVE DAY SHIFT CONTINUE POC.
[2019-08-15 05:02] LABS: Basophils # (auto) 0 10 ^3/uL (0-0.2); Basophils % (auto) 0.2 % (0.0-2.0); Eosinophils # (auto) 0.8 10 ^3/uL (0-0.8); Eosinophils % (auto) 6.5 % (0.0-7.0); Hematocrit 37.6 % (41.0-53.0); Hemoglobin 12.6 g/dL (13.5-17.5); Lymphocytes # (auto) 0.8 10 ^3/uL (0.4-5.4); Lymphocytes % (auto) 6.6 % (10.0-50.0); Mean Corpuscular Hemoglobin 30.8 pg (28.0-32.0); Mean Corpuscular Hgb Conc. 33.5 g/dL (32.0-36.0); Mean Corpuscular Volume 91.9 fL (80.0-100.0); Monocytes # (auto) 1.1 10 ^3/uL (0-1.3); Neutrophils # (auto) 9.7 10 ^3/uL (1.6-8.6); Neutrophils % (auto) 77.7 % (37.0-80.0); Nucleated Red Blood Cells % 0.1 %; Platelet Count (auto) 202 10^3/uL (140-450); Red Cell Distribution Width 12.8 % (11.8-14.3); White Blood Cell 12.5 10^3/uL (4.4-10.8)
[2019-08-15 05:21] LABS: Potassium 3.9 mmol/L (3.5-5.1)
[2019-08-15] MEDS: MIDAZOLAM DRIP 50 mg/50mL 50 ML IV SCH ×2 (05:29→15:29)
[2019-08-15 05:30] LABS: Albumin 2.1 g/dL (3.4-5.0); Calcium 7.8 mg/dL (8.5-10.1); Magnesium 2.4 mg/dL (1.6-2.6)
[2019-08-15] MEDS: FUROSEMIDE 40 MG/4 ML VIAL IV SCH (05:35)
--- NOTE | 2019-08-15 05:38 | NUR ---
Feedings restarted at 10 ml/hr, no gastric residuals noted.
[2019-08-15 05:39] LABS: Bilirubin, Total 0.5 mg/dL (0.2-1.0); Total Protein 5.7 g/dL (6.4-8.2)
[2019-08-15] MEDS ORDERED: POTASSIUM CHL 20MEQ/100ML 100 ML IV ONE (05:44)
[2019-08-15] MEDS: ACCU-CHEK COMFORT CURVE STRIP VI SCH ×3 (06:26→17:41)
[2019-08-15] MEDS: InsuLIN REG 1unit/0.01ml Soln (100units/ml) SC SCH ×3 (06:26→18:00)
[2019-08-15] MEDS ORDERED: DEXTROSE (50%) 50ML SYRG IV PRN (07:45)
[2019-08-15] MEDS: NOREPINEPHRINE 8 MG/250ML KIT 250 ML IV SCH (08:00)
--- NOTE | 2019-08-15 08:00 | NUR ---
DR CHAVARRIA VISITS AND EXAMINES PATIENT -NO NEW ORDERS RECEIVED.
--- NOTE | 2019-08-15 08:15 | NUR ---
10ML RESIDUAL TF NOTED WITH ASPIRATION- WILL MONITOR.
[2019-08-15] MEDS ORDERED: VANCOMYCIN PER PHARMACY 0 MG IV SCH (08:30)
--- NOTE | 2019-08-15 09:00 | NUR ---
DECREASING SEDATION SLOWLY. AWAITING CARDIOLOGY FOR POC Addendum: 08/15/19 at 1546 by Angela Simpson RN Amended: Links added.
--- NOTE | 2019-08-15 10:05 | NUR ---
DR GAITAN VISITS AND EXAMINES PATIENT - ORDERS RECEIVED.
[2019-08-15] MEDS: fentaNYL Drip 2500mCg/250mlNS 250 ML IV SCH (10:45)
[2019-08-15] MEDS: PANTOPRAZOLE 40 MG/10 ML VIAL INJ IV SCH (10:58)
[2019-08-15] MEDS: ASPirin 81 mg TAB PO SCH (10:59)
[2019-08-15] MEDS: VANCOMYCIN 1GM/250ML 250 ML IV SCH ×2 (10:59→20:01)
[2019-08-15] MEDS: TICAGRELOR 90 MG TAB GT SCH ×2 (10:59→22:00)
[2019-08-15] MEDS: THIAMINE 100mg/ml INJ (200mg/2ml VIAL) IV SCH (11:00)
[2019-08-15] MEDS: FOLIC ACID 1 MG in D5W 5% 50 ML IV SCH (11:00)
[2019-08-15] MEDS: POTASSIUM EFFERVESENT TAB 25 MEQ GT SCH (11:28)
--- NOTE | 2019-08-15 11:30 | NUR ---
PATIENT'S GIRLFRIEND PHONES - GIVEN UPDATE - VERBALIZED UNDERSTANDING.
[2019-08-15] MEDS ORDERED: AMIODARONE HCL (50 MG/ ML) 3 ML VIAL IV ONE (12:26)
[2019-08-15] MEDS ORDERED: EPINEPHrine HCL 1 MG/10 ML SYRG IV ONE (12:26)
--- NOTE | 2019-08-15 12:30 | NUR ---
No TF residual noted.
--- NOTE | 2019-08-15 13:00 | NUR ---
Patient febrile - cooling measures applied.
--- NOTE | 2019-08-15 13:22 | NUR ---
WOUND CARE NOTE: Wound care in for quick assessment on new skin issue noted by bedside nurse to patient's Rt earlobe. Patient continue resting in ICU bed in Rm. 112. Patient is intubated,sedated and mechanically ventilated. Patient appears to be in no pain using Tejada Jimenez Faces Pain Scale. Noted patient's Rt earlobe has 1x1cm non-blanchable redness. RN Annherman at bedside reported that patient tend to favor leaning his head to Rt. side, staff is applying rolled towel to keeping alignment of patient's head and keep off pressure to Rt ear area. Skin is intact, clean and dry, left open to air. Bedside nurse took photograph of patient's new skin issue upon discovery for reference. Will continue to monitor.
--- NOTE | 2019-08-15 17:45 | NUR ---
Patient's son Kosta phones - states he wants MD to call him in am re: test results as older brother Eric does not return phone calls - sports book writer informed him that MD would call him as he was next of kin - verbalized understanding and appreciation.
--- NOTE | 2019-08-15 18:00 | NUR ---
TF increased to 20ml/hour - no residual TF noted.
--- NOTE | 2019-08-15 20:00 | NUR ---
OPEN ASSUMED CARE OF MALE PT ORALLY INTUBATED. PT SEDATED ON FENTANYL GTT 125 MCG/HR. COUGH AND GAG POSITIVE. PT WITHDRAWS TO PAINFUL STIMULI OTHERWISE NON RESPONSIVE ON SOAKER MEAT. AMIODARONE GTT INFUSING AT 0.5 MG/MIN, LEVOPHED GTT 14 MCG/MIN. NGT TO R. NARE INFUSING JEVITY FEEDING AT 20 ML/HR. 10 ML RESIDUAL ASPIRATED/RETURNED. FEEDING RESUMED. PT WITH R. IJ TLC WITH INTACT BROWN SERUM FILLED BLISTER BELOW IJ DRESSING. PT'S SKIN TO BACK, ABDOMEN, FLANK AND LEGS IS RED AND WARM TO TOUCH. KRAFT TO GRAVITY DRAINING LIGHT DARLENE URINE. ESTEFANÍA SCD'S IN PLACE. OPTIFOAM GENTLE SACRAL DRESSING IN PLACE OVER INTACT SKIN. PILLOWS USED TO OFFLOAD BONY PROMINENCES AND ESTEFANÍA LOWER EXT'S. NO INDICATION OF PAIN OBSERVED. BED IN LOWEST LOCKED POSITION. SIDE RAILS X 2. HOB ELEVATED 35 DEGREES. PT IN FULL VIEW OF RN STATION. WILL CONTINUE TO MONITOR.
--- NOTE | 2019-08-15 21:15 | NUR ---
FAMILY CALL PT 'S SON CHANO CALLED UNIT FOR UPDATE ON PT CONDITION. AFTER PASSWORD FOR PHONE GIVEN. UPDATE PROVIDED. CHANO IDENTIFIES HIMSELF PT'S ELDEST SON. PHONE NUMBER FOR CHANO PLACED IN COMPUTER.
[2019-08-15] MEDS: ATORVASTATIN 20 MG TAB PO SCH (22:00)
--- NOTE | 2019-08-15 22:00 | NUR ---
FAMILY CALL PT'S MOTHER SANDIE CALLED UNIT FOR UPDATE ON PT CONDITION. AFTER PASSWORD FOR PHONE GIVEN. UPDATE PROVIDED. ALL QUESTIONS AND CONCERNS ADDRESSED.
[2019-08-16] VITALS (92 sets, daily range): BP systolic 83–139; BP diastolic 45–94
[2019-08-16] MEDS: ALBUTEROL SULF 2.5 MG/0.5ML(0.5%) NEB SOLN NEB SCH ×4 (00:17→18:24)
[2019-08-16] MEDS: IPRATROPIUM BROM 0.5 MG/2.5ML INH SOL NEB SCH ×4 (00:18→18:24)
[2019-08-16] MEDS: PIPERACILLIN-TAZOB 3.375GM 100 ML IV SCH ×4 (00:50→19:09)
--- NOTE | 2019-08-16 01:00 | NUR ---
TEMP PT WITH RECTAL TEMP 100.4. TYLENOL ELIXER GIVEN PER ORDER. SEE EMAR.
[2019-08-16] MEDS: ACETAMINOPHEN 650 mg PER 20 mL UD GT PRN ×2 (01:03→22:15)
[2019-08-16] MEDS: MIDAZOLAM DRIP 50 mg/50mL 50 ML IV SCH ×3 (01:29→21:29)
[2019-08-16] MEDS: VANCOMYCIN 1GM/250ML 250 ML IV SCH ×2 (04:00→14:38)
[2019-08-16] MEDS: fentaNYL Drip 2500mCg/250mlNS 250 ML IV SCH ×2 (04:25→22:28)
--- NOTE | 2019-08-16 05:00 | NUR ---
Patient bathe/linen change Patient given complete bath. Skin integrity assessed for any changes. Linens changed. Patient repositioned for comfort.
[2019-08-16 05:13] LABS: Basophils # (auto) 0 10 ^3/uL (0-0.2); Basophils % (auto) 0.3 % (0.0-2.0); Eosinophils # (auto) 0.9 10 ^3/uL (0-0.8); Eosinophils % (auto) 8.7 % (0.0-7.0); Hematocrit 38.2 % (41.0-53.0); Hemoglobin 12.8 g/dL (13.5-17.5); Lymphocytes # (auto) 0.9 10 ^3/uL (0.4-5.4); Lymphocytes % (auto) 8.1 % (10.0-50.0); Mean Corpuscular Hemoglobin 30.6 pg (28.0-32.0); Mean Corpuscular Hgb Conc. 33.4 g/dL (32.0-36.0); Mean Corpuscular Volume 91.6 fL (80.0-100.0); Monocytes # (auto) 0.9 10 ^3/uL (0-1.3); Monocytes % (auto) 8.5 % (0.0-12.0); Neutrophils % (auto) 74.4 % (37.0-80.0); Platelet Count (auto) 231 10^3/uL (140-450); Red Blood Cells 4.17 10^6/uL (4.5-5.90); Red Cell Distribution Width 12.9 % (11.8-14.3); White Blood Cell 10.7 10^3/uL (4.4-10.8)
[2019-08-16] MEDS: PROPOFOL 100 ML IV SCH ×3 (05:20→22:44)
[2019-08-16 05:35] LABS: Potassium 4.1 mmol/L (3.5-5.1)
[2019-08-16 05:49] LABS: Albumin 2.1 g/dL (3.4-5.0); BUN/Creatinine Ratio 23.4; Bilirubin, Total 0.6 mg/dL (0.2-1.0); Calcium 7.9 mg/dL (8.5-10.1); Magnesium 2.4 mg/dL (1.6-2.6); Phosphorus 3.1 mg/dL (2.5-4.90); Total Protein 5.8 g/dL (6.4-8.2)
[2019-08-16] MEDS: ACCU-CHEK COMFORT CURVE STRIP VI SCH ×4 (05:52→18:00)
[2019-08-16] MEDS: InsuLIN REG 1unit/0.01ml Soln (100units/ml) SC SCH ×4 (05:52→18:00)
[2019-08-16] MEDS: NOREPINEPHRINE 8 MG/250ML KIT 250 ML IV SCH (07:30)
--- NOTE | 2019-08-16 09:00 | NUR ---
Family updated on pt status Family of JUAN RAMON CRENSHAW phoned here and was updated on patient's status and condition. All questions and concerns addressed. verbalized understanding.
[2019-08-16] MEDS: AMIODARONE 450mg/250ml AE 250 ML IV SCH (11:13)
[2019-08-16] MEDS: TICAGRELOR 90 MG TAB GT SCH ×2 (11:13→22:26)
[2019-08-16] MEDS: POTASSIUM EFFERVESENT TAB 25 MEQ GT SCH (11:19)
[2019-08-16] MEDS: ASPirin 81 mg TAB PO SCH (11:20)
[2019-08-16] MEDS: THIAMINE 100mg/ml INJ (200mg/2ml VIAL) IV SCH (11:20)
[2019-08-16] MEDS: PANTOPRAZOLE 40 MG/10 ML VIAL INJ IV SCH (11:20)
--- NOTE | 2019-08-16 12:30 | NUR ---
Provider/Hospitalist at bedside made rounds and saw pt. and made some orders.
--- NOTE | 2019-08-16 14:04 | NUR ---
Nutrition Follow-up Notes Wt.: 127.8 kg Pt was intubated sedated with propofol @ 26 ml/hr providing 686 kcals from fats, no family by bedside. Pt was with respiratory when rounding. Pt receiving Jevity 1.2 @ 30 ml/hr, per RN pt will advance towards goal rate of 60 ml/hr if pt continues to tolerate TF. Est. Energy Needs ABW 96 k-1920 kcal (17-20 kcal/kg BW), Est. Protein Needs: 96-105 gms/day (1.0-1.1 gms/kg ABW). Labs: Ca 7.9L, Alb 2.1L GI: Pt had 1 BM 08/06 per RN doc. Skin: Srinivas scale 12 low risk risk. Please refer to wound assessment report for full details PES: 1) Altered nutrition related lab values r.t current chronic medical condition aeb mod hypoalb hyperglycemia, hypocalcemia, elev TG Decreased nutrient needs r/t adiposity aeb pt`s high BMI of 43.3 kgm2 Impaired swallowing r.t current medical condition aeb pt`s intubated sedated with order of NPO Recommendations: 1) advance diet as medically feasible. 2) advance EN support with Jevity 1.2 @ 60 ml/hr per MD approval. 3) refer to [employer] dietitian on DC. 4) continue current plan of care
--- NOTE | 2019-08-16 16:00 | NUR ---
Family updated on pt status Family of JUAN RAMON CRENSHAW updated on patient's status and condition. All questions and concerns addressed. verbalized understanding.
[2019-08-16] MEDS: FOLIC ACID 1 MG in D5W 5% 50 ML IV SCH (17:22)
[2019-08-16] MEDS ORDERED: DOXYCYCLINE 100MG/250ML 250 ML IV ONE (17:45)
[2019-08-16] MEDS ORDERED: FUROSEMIDE 40 MG/4 ML VIAL IV ONE (17:45)
[2019-08-16] MEDS ORDERED: ENOXAPARIN SOD 40 MG/0.4 ML SYRINGE SC ONE (18:15)
--- NOTE | 2019-08-16 19:42 | NUR ---
MED ON BACK ORDER PER RX ONE TIME ORDER FOR VIBRAMYCIN PIGGY BACK OBSERVED IN EMAR. THIS RN CALLED RX TO OBTAIN MED. PER RX IT IS ON BACK ORDER AND NOT AVAILABLE. ATTEMPT TO PAGE DR GAITAN WHO ORDERED MED. PER PBX DR GAITAN IN NOT PAGEABLE AT THIS TIME.
[2019-08-16] MEDS ORDERED: VANCOMYCIN 1GM/250ML 250 ML IV SCH (20:00)
--- NOTE | 2019-08-16 20:00 | NUR ---
OPEN ASSUMED CARE OF MALE PT ORALLY INTUBATED. PT SEDATED ON FENTANYL GTT 125 MCG/HR AND PROPOFOL GTT 40 MCG/KG/MIN. COUGH AND GAG POSITIVE. PT OPENS EYES DURING ORAL CARE AND TURNING OTHERWISE NON RESPONSIVE. SR ON SKIDDER OPERATOR. AMIODARONE GTT INFUSING AT 0.5 MG/MIN, LEVOPHED GTT 6 MCG/MIN. NGT TO R. NARE INFUSING JEVITY FEEDING AT 30 ML/HR. 10 ML RESIDUAL ASPIRATED/RETURNED. FEEDING RESUMED. PT WITH R. IJ TLC WITH INTACT BROWN SERUM FILLED BLISTERS BELOW IJ DRESSING. PT'S SKIN TO BACK, ABDOMEN, FLANK AND LEGS IS RED AND WARM TO TOUCH. R. EAR REDDENED WITH SKIN BREAK. PRESSURE OFFLOADED R. EAR. KRAFT TO GRAVITY DRAINING YELLOW CLOUDY URINE. ESTEFANÍA SCD'S IN PLACE. OPTIFOAM GENTLE SACRAL DRESSING IN PLACE OVER INTACT SKIN. PILLOWS USED TO OFFLOAD BONY PROMINENCES AND ESTEFANÍA LOWER EXT'S. NO INDICATION OF PAIN OBSERVED. BED IN LOWEST LOCKED POSITION. SIDE RAILS X 2. HOB ELEVATED 35 DEGREES. PT IN FULL VIEW OF RN STATION. WILL CONTINUE TO MONITOR.
--- NOTE | 2019-08-16 20:20 | NUR ---
FAMILY CALL PT MOTHER SANDIE CALLED UNIT FOR UPDATE ON PT CONDITION. AFTER PASSWORD FOR PHONE GIVEN. UPDATE PROVIDED. ALL QUESTIONS AND CONCERNS ADDRESSED.
--- NOTE | 2019-08-16 21:30 | NUR ---
FAMILY CALL PT'S SON CHANO CALLED UNIT FOR UPDATE ON PT CONDITION. AFTER PASSWORD FOR PHONE GIVEN. UPDATE PROVIDED. ALL QUESTIONS AND CONCERNS ADDRESSED.
--- NOTE | 2019-08-16 22:15 | NUR ---
TEMP PT WITH RECTAL TEMP 100.4. TYLENOL ELIXER GIVEN VIA NGT PER ORDER. SEE EMAR.
[2019-08-16] MEDS: ATORVASTATIN 20 MG TAB PO SCH (22:26)
--- NOTE | 2019-08-16 22:30 | NUR ---
GIRLFRIEND CALLED UNIT PT GIRLFRIEND RONNY CALLED UNIT FOR UPDATE ON PT CONDITION. AFTER PASSWORD FOR PHONE GIVEN, UPDATE PROVIDED. ALL QUESTIONS AND CONCERNS ADDRESSED.
--- NOTE | 2019-08-16 23:45 | NUR ---
Assumed care after receiving report from Carly SUAZO. Pt is on vent and sedation with propofol and fentanyl, on amiodarone and levophed drips infusing in the right IJ, see IV spreadsheet for titration, NGT in place infusing with jevity feeding @ 30 ml/hr, no residuals noted, ruiz catheter draining to a light jasmina urine. Bed in lowest position with side rails up, bed alarm on. Will continue care.
[2019-08-17] VITALS (105 sets, daily range): BP systolic 97–147; BP diastolic 57–97
--- NOTE | 2019-08-17 | NUR ---
temp 100.2, cooling measures done, ice packs provided
[2019-08-17] MEDS: PIPERACILLIN-TAZOB 3.375GM 100 ML IV SCH ×4 (00:26→17:19)
[2019-08-17] MEDS: ACCU-CHEK COMFORT CURVE STRIP VI SCH ×4 (00:26→18:59)
[2019-08-17] MEDS: IPRATROPIUM BROM 0.5 MG/2.5ML INH SOL NEB SCH ×4 (00:33→18:11)
[2019-08-17] MEDS: ALBUTEROL SULF 2.5 MG/0.5ML(0.5%) NEB SOLN NEB SCH ×4 (00:33→18:11)
[2019-08-17] MEDS: AMIODARONE 450mg/250ml AE 250 ML IV SCH ×2 (01:21→16:05)
--- NOTE | 2019-08-17 04:00 | NUR ---
Hygiene Oral care done, partial bath done, skin reassessed for any changes, linens and gown changed, repositioned for comfort
[2019-08-17 04:39] LABS: Basophils # (auto) 0 10 ^3/uL (0-0.2); Basophils % (auto) 0.4 % (0.0-2.0); Eosinophils # (auto) 0.9 10 ^3/uL (0-0.8); Eosinophils % (auto) 10.1 % (0.0-7.0); Hematocrit 36.5 % (41.0-53.0); Hemoglobin 12.5 g/dL (13.5-17.5); Lymphocytes # (auto) 1.3 10 ^3/uL (0.4-5.4); Lymphocytes % (auto) 15.1 % (10.0-50.0); Mean Corpuscular Hemoglobin 31.1 pg (28.0-32.0); Mean Corpuscular Hgb Conc. 34.2 g/dL (32.0-36.0); Mean Corpuscular Volume 90.8 fL (80.0-100.0); Monocytes # (auto) 0.9 10 ^3/uL (0-1.3); Monocytes % (auto) 10.5 % (0.0-12.0); Neutrophils # (auto) 5.5 10 ^3/uL (1.6-8.6); Neutrophils % (auto) 63.9 % (37.0-80.0); Nucleated Red Blood Cells % 0.1 %; Platelet Count (auto) 221 10^3/uL (140-450); Red Blood Cells 4.02 10^6/uL (4.5-5.90); Red Cell Distribution Width 12.7 % (11.8-14.3); White Blood Cell 8.7 10^3/uL (4.4-10.8)
[2019-08-17 04:43] LABS: Potassium 4.1 mmol/L (3.5-5.1)
[2019-08-17 04:46] LABS: BUN/Creatinine Ratio 20.2
--- NOTE | 2019-08-17 05:59 | NUR ---
IV d/c Redness of IV site in the right forearm noted, d/c, pressure dressing applied
[2019-08-17] MEDS: PROPOFOL 100 ML IV SCH ×3 (06:00→17:18)
[2019-08-17] MEDS: InsuLIN REG 1unit/0.01ml Soln (100units/ml) SC SCH ×4 (06:00→18:00)
--- NOTE | 2019-08-17 06:00 | NUR ---
Accucheck 93, TF increased to 60ml/hr, no residuals noted
[2019-08-17] MEDS: MIDAZOLAM DRIP 50 mg/50mL 50 ML IV SCH ×2 (07:29→17:29)
--- NOTE | 2019-08-17 07:40 | NUR ---
Received report from car shifter nurse Susi SUAZO with Sergey SUAZO Bed is locked at lowest position, side rails up x2. Pt temperature 100.4, cooling measures started. Signed: 08/17/19 at 915 by BRAD CARRASCO <Co-Signature Required> Co-Signed: 08/17/19 at 915 by Sergey Anderson RN
[2019-08-17] MEDS: ACETAMINOPHEN 650 mg PER 20 mL UD GT PRN ×2 (07:42→14:12)
--- NOTE | 2019-08-17 09:00 | NUR ---
SEDATION VACATION HELD AT THIS TIME DUE TO NEURO STATUS Addendum: 08/17/19 at 1208 by Sergey Anderson RN Amended: Links added.
[2019-08-17] MEDS ORDERED: DOXYCYCLINE 100MG/250ML 250 ML IV SCH (10:00)
--- NOTE | 2019-08-17 10:00 | NUR ---
DOXYCYCLINE IV NOT AVAILABLE PER PHARMACY HOSPITALIST PAGED TO NOTIFY. AWAITING CALLBACK
[2019-08-17] MEDS: THIAMINE 100mg/ml INJ (200mg/2ml VIAL) IV SCH (10:08)
[2019-08-17] MEDS: FUROSEMIDE 40 MG/4 ML VIAL IV SCH (10:08)
[2019-08-17] MEDS: PANTOPRAZOLE 40 MG/10 ML VIAL INJ IV SCH (10:09)
[2019-08-17] MEDS: POTASSIUM EFFERVESENT TAB 25 MEQ GT SCH (10:09)
[2019-08-17] MEDS: ENOXAPARIN SOD 40 MG/0.4 ML SYRINGE SC SCH (10:09)
[2019-08-17] MEDS: TICAGRELOR 90 MG TAB GT SCH ×2 (10:17→21:23)
[2019-08-17] MEDS: ASPirin 81 mg TAB PO SCH (10:17)
[2019-08-17] MEDS ORDERED: CARVEDILOL 12.5 MG TAB PO ONE (11:15)
[2019-08-17] MEDS ORDERED: SACUBITRIL-VALSARTAN 24mg/26mg TAB PO ONE (11:15)
[2019-08-17] MEDS: DOXYCYCLINE 100 MG TAB/CAP PO SCH ×2 (12:40→21:23)
[2019-08-17] MEDS: fentaNYL Drip 2500mCg/250mlNS 250 ML IV SCH (16:07)
--- NOTE | 2019-08-17 16:10 | NUR ---
DR CHAVARRIA AT BEDSIDE
--- NOTE | 2019-08-17 16:20 | NUR ---
FAMILY UPDATED ON PATIENT STATUS ALL QUESTIONS AND CONCERNS ADDRESSED AT THIS TIME.
--- NOTE | 2019-08-17 16:44 | NUR ---
PARTIAL LINEN CHANGE COMPLETED PT TOLERATED WELL.
--- NOTE | 2019-08-17 19:35 | NUR ---
OPENING NOTE RECEIVED REPORT FROM MARGARET RN AND PATO RNS. PT CURRENTLY INTUBATED AND SEDATED (SEE IV SPREADSHEET). VITAL SIGNS STABLE UPON INITIAL ASSESSMENT WITH NO S/S OF DISTRESS NOTED AT THIS TIME. COOLING MEASURES (FAN, ICE PACKS AND COOL CLOTH) REMAIN IN PLACE FOR TEMP OF 100.0 RECTALLY. KRAFT CATHETER IN PLACE AND DRAINING YELLOW/LIGHT GREEN URINE APPROPRIATELY. BED IS LOCKED AND IN LOWEST POSITION WITH SIDE RAILS UP FOR SAFETY. PT TURNED AND ORAL CARE DONE. WILL CONTINUE TO MONITOR AND ASSESS PT.
--- NOTE | 2019-08-17 20:01 | NUR ---
TUBE FEEDING ASSESSMENT PT CURRENTLY RUNNING JEVITY 1.2 AT 60 ML/HR. <10 ML RESIDUALS NOTED. PT TOLERATING WELL WITH HYPOACTIVE-ACTIVE BOWEL SOUNDS. TF CONTINUED AT 60 ML/HR.
--- NOTE | 2019-08-17 20:32 | NUR ---
FAMILY CALL SPOKE WITH PTS MOTHER, SANDIE. PASSWORD VERIFIED. MADE HER AWARE OF PT CONDITION AND CURRENT PLAN OF CARE. SANDIE INSISTS ON BECOMING PTS POA TO KEEP IN CONTACT WITH DOCTORS. EXPLAINED TO HER THAT POWER OF PIG FARM MANAGER PAPERWORK WOULD BE REQUIRED AND THAT DR. CHAVARRIA HAS SPOKEN WITH PTS SON EDGAR WHO ARE LEGAL NEXT OF KIN AND THEY ARE AWARE OF PT STATUS AND PLAN OF CARE. ALL QUESTIONS AND CONCERNS ADDRESSED AT THIS TIME. ENCOURAGED HER TO CALLBACK FOR UPDATES.
[2019-08-17] MEDS: NOREPINEPHRINE 8 MG/250ML KIT 250 ML IV SCH (20:48)
[2019-08-17] MEDS: ATORVASTATIN 20 MG TAB PO SCH (21:23)
[2019-08-17] MEDS: CARVEDILOL 12.5 MG TAB PO SCH (21:33)
--- NOTE | 2019-08-17 22:16 | NUR ---
SEDATION VACATION NOT APPROPRIATE AT THIS TIME. PT IS COUGHING EXCESSIVELY, BREATHING OVER THE VENTILATOR AND NOT TOLERATING CURRENT SEDATION. SEDATION INCREASED AT THIS TIME FOR PT COMFORT AND VENTILATOR SYNCHRONY. Addendum: 08/17/19 at 2218 by MIKI RANGEL RN RN Amended: Links added.
[2019-08-17] MEDS: SACUBITRIL-VALSARTAN 24mg/26mg TAB PO SCH (22:32)
--- NOTE | 2019-08-17 23:36 | NUR ---
FAMILY CALL PTS GIRLFRIENSergio JEFFERSON CALLED UNIT. PASSWORD VERIFIED. MADE HER AWARE OF PT STATUS AND CURRENT PLAN OF CARE. TRANSFERRED CALL TO PORTABLE PHONE SO SHE COULD TALK TO PT. ALL QUESTIONS AND CONCERNS ADDRESSED AT THIS TIME. ENCOURAGED HER TO CALLBACK FOR ANY NEW CONCERNS.
[2019-08-18] VITALS (100 sets, daily range): BP systolic 91–145; BP diastolic 60–101
[2019-08-18] MEDS: ACCU-CHEK COMFORT CURVE STRIP VI SCH ×5 (00:02→23:57)
[2019-08-18] MEDS: PIPERACILLIN-TAZOB 3.375GM 100 ML IV SCH ×5 (00:02→23:58)
[2019-08-18] MEDS: IPRATROPIUM BROM 0.5 MG/2.5ML INH SOL NEB SCH ×4 (00:30→18:54)
[2019-08-18] MEDS: ALBUTEROL SULF 2.5 MG/0.5ML(0.5%) NEB SOLN NEB SCH ×4 (00:31→18:54)
--- NOTE | 2019-08-18 02:46 | NUR ---
PT CARE GAVE PT CHG BATH AND DID FULL KRISTIN/GOWN CHANGE. ORAL CARE DONE AND PT TURNED. PT HAD MODERATELY SIZED, LOOSE BM. CLEANED APPROPRIATELY AND APPLIED Z GUARD AND OPTIFOAM TO SACRAL AREA. NEW SKIN CHANGES NOTED TO RIGHT ANKLE- SMALL CIRCULAR WOUND. PHOTOS TAKEN AND PLACED IN WOUND CARE ENVELOPE.
[2019-08-18] MEDS: PROPOFOL 100 ML IV SCH ×3 (04:11→17:12)
[2019-08-18 04:34] LABS: Basophils # (auto) 0 10 ^3/uL (0-0.2); Basophils % (auto) 0.5 % (0.0-2.0); Eosinophils # (auto) 0.7 10 ^3/uL (0-0.8); Hematocrit 35.5 % (41.0-53.0); Lymphocytes # (auto) 1.2 10 ^3/uL (0.4-5.4); Lymphocytes % (auto) 14.1 % (10.0-50.0); Mean Corpuscular Hemoglobin 30.8 pg (28.0-32.0); Mean Corpuscular Hgb Conc. 33.9 g/dL (32.0-36.0); Mean Corpuscular Volume 90.9 fL (80.0-100.0); Monocytes # (auto) 0.8 10 ^3/uL (0-1.3); Monocytes % (auto) 10.1 % (0.0-12.0); Neutrophils # (auto) 5.5 10 ^3/uL (1.6-8.6); Neutrophils % (auto) 67.3 % (37.0-80.0); Platelet Count (auto) 191 10^3/uL (140-450); Red Cell Distribution Width 12.8 % (11.8-14.3); White Blood Cell 8.2 10^3/uL (4.4-10.8)
[2019-08-18 04:48] LABS: Albumin 2.1 g/dL (3.4-5.0); BUN/Creatinine Ratio 22.1; Calcium 7.8 mg/dL (8.5-10.1); Magnesium 2.2 mg/dL (1.6-2.6); Potassium 3.5 mmol/L (3.5-5.1)
[2019-08-18 04:51] LABS: Bilirubin, Total 0.5 mg/dL (0.2-1.0); INR 1.03 (0.9-1.15); Partial Thromboplastin Time 26.5 sec (23.64-32.05); Phosphorus 2.4 mg/dL (2.5-4.90)
[2019-08-18] MEDS: AMIODARONE 450mg/250ml AE 250 ML IV SCH ×2 (05:30→19:59)
--- NOTE | 2019-08-18 05:51 | NUR ---
GUSTAVO MCINTYRE FOR K OF 3.5. AWAITING CALLBACK. Addendum: 08/18/19 at 0631 by MIKI RANGEL RN RN FOLLOWED K REPLACEMENT PROTOCOL FOR K OF 3.5- REPLACING WITH 40 MEQS OF POTASSIUM.
[2019-08-18] MEDS: InsuLIN REG 1unit/0.01ml Soln (100units/ml) SC SCH ×5 (06:00→23:58)
[2019-08-18] MEDS ORDERED: POTASSIUM CHL 20MEQ/100ML 100 ML IV ONE (06:00)
[2019-08-18] MEDS: POTASSIUM CHL 20MEQ/100ML 100 ML IV SCH ×2 (06:15→07:59)
[2019-08-18] MEDS: POTASSIUM CHL 20MEQ/100ML 100 ML IV PRN (06:29)
--- NOTE | 2019-08-18 07:12 | NUR ---
REPORT GIVEN TO LAKEISHA ROBLES. MADE HIM AWARE OF K REPLACEMENT CURRENTLY INFUSING AND PTS FAMILY DYNAMICS.
--- NOTE | 2019-08-18 07:12 | NUR ---
REPORT RECEIVED FROM CORRECTIONAL TREATMENT SPECIALIST RN
--- NOTE | 2019-08-18 09:12 | NUR ---
ORAL CARE PERFORMED PATIENT TOLERATED WELL
[2019-08-18] MEDS: THIAMINE 100mg/ml INJ (200mg/2ml VIAL) IV SCH (09:26)
[2019-08-18] MEDS: PANTOPRAZOLE 40 MG/10 ML VIAL INJ IV SCH (09:26)
[2019-08-18] MEDS: POTASSIUM EFFERVESENT TAB 25 MEQ GT SCH (09:26)
[2019-08-18] MEDS: SACUBITRIL-VALSARTAN 24mg/26mg TAB PO SCH ×2 (09:27→23:06)
[2019-08-18] MEDS: DOXYCYCLINE 100 MG TAB/CAP PO SCH ×2 (09:27→21:58)
[2019-08-18] MEDS: CARVEDILOL 12.5 MG TAB PO SCH ×2 (09:27→21:59)
[2019-08-18] MEDS: FUROSEMIDE 40 MG/4 ML VIAL IV SCH (09:27)
[2019-08-18] MEDS: ASPirin 81 mg TAB PO SCH (09:28)
[2019-08-18] MEDS: TICAGRELOR 90 MG TAB GT SCH ×2 (09:28→21:58)
[2019-08-18] MEDS: ENOXAPARIN SOD 40 MG/0.4 ML SYRINGE SC SCH (09:28)
--- NOTE | 2019-08-18 10:20 | NUR ---
Nutrition Follow-up Notes Wt.: 131.2 kg Pt was intubated sedated with propofol @ 14.88 ml/hr providing 393 kcals from fats, no family by bedside. Pt receiving Jevity 1.2 @ 40 ml/hr per RN nutrition note. Continue to advance to goal rate as medically feasible. Est. Energy Needs ABW 96 k-1920 kcal (17-20 kcal/kg BW), Est. Protein Needs: 96-105 gms/day (1.0-1.1 gms/kg ABW). Labs: Creat 0.68L, Ca 7.8L, Alb 2.1L GI: Pt had 1 BM 08/17 per RN doc. Skin: Srinivas scale 12 low risk risk. Please refer to wound assessment report for full details PES: 1) Altered nutrition related lab values r.t current chronic medical condition aeb mod hypoalb hyperglycemia, hypocalcemia, elev TG Decreased nutrient needs r/t adiposity aeb pt`s high BMI of 43.3 kgm2 Impaired swallowing r.t current medical condition aeb pt`s intubated sedated with order of NPO Recommendations: 1) advance diet as medically feasible. 2) advance EN support with Jevity 1.2 @ 60 ml/hr per MD approval. 3) refer to [employer] dietitian on DC. 4) continue current plan of care
--- NOTE | 2019-08-18 11:08 | NUR ---
NEURO STATUS PATIENT FOLLOWING COMMANDS WITH SIMPLE TASKS SUCH SQUEEZING RN'S HANDS AND WIGGLING TOES
--- NOTE | 2019-08-18 11:41 | NUR ---
DR. STEWART AT BEDSIDE
--- NOTE | 2019-08-18 11:43 | NUR ---
DR. HADLEY PAGED AWAITING CALLBACK
[2019-08-18] MEDS: MIDAZOLAM DRIP 50 mg/50mL 50 ML IV SCH (13:29)
--- NOTE | 2019-08-18 14:15 | NUR ---
DR. JOMAR RODAS
--- NOTE | 2019-08-18 15:10 | NUR ---
Respiratory note: UNABLE TO PROCEED WITH CPAP AT THIS TIME. PT NOT ALERT ENOUGH TO FOLLOW RESPIRATORY COMMANDS TO OBATIN WEANING PARAMETERS. LAKEISHA ROBLES AND DR STEWART AWARE.
--- NOTE | 2019-08-18 16:23 | NUR ---
FAMILY UPDATED ON PATIENT STATUS. ALL QUESTIONS ADDRESSED AT THIS TIME
[2019-08-18] MEDS: fentaNYL Drip 2500mCg/250mlNS 250 ML IV SCH (17:30)
--- NOTE | 2019-08-18 19:12 | NUR ---
OPENING NOTE RECEIVED REPORT FROM MARGARET SUAZO. PT CURRENTLY INTUBATED AND SEDATED (SEE IV SPREADSHEET). VITAL SIGNS STABLE UPON INITIAL ASSESSMENT WITH NO S/S OF DISTRESS NOTED AT THIS TIME. KRAFT CATHETER IN PLACE AND DRAINING YELLOW/LIGHT GREEN URINE APPROPRIATELY. BED IS LOCKED AND IN LOWEST POSITION WITH SIDE RAILS UP FOR SAFETY. PT TURNED AND ORAL CARE DONE. PT ABLE TO FOLLOW SIMPLE COMMANDS AND SHAKE HIS HEAD "YES" OR "NO" WHEN ASKED QUESTIONS. WILL CONTINUE TO MONITOR AND ASSESS PT.
--- NOTE | 2019-08-18 20:46 | NUR ---
FAMILY CALL SPOKE WITH PTS MOTHER SANDIE. PASSWORD VERIFIED AND UPDATED HER ON PT CONDITION AND PLAN OF CARE. ALL QUESTIONS AND CONCERNS ADDRESSED AT THIS TIME.
--- NOTE | 2019-08-18 21:38 | NUR ---
SEDATION VACATION PT REMAINS LIGHTLY SEDATED AT THIS TIME FOR COMFORT AND STILL BEING ON VENTILATOR. IS AWAKE ENOUGH TO SHAKE HEAD "YES" WHEN ASKED IF HE UNDERSTANDS WHAT IS BEING SAID TO HIM. ABLE TO SQUEEZE ASSESSORS HANDS WHEN TOLD TO AND MOVE FEET WHEN ASKED TO DO SO. Addendum: 08/18/19 at 2140 by MIKI RANGEL RN RN Amended: Links added.
--- NOTE | 2019-08-18 21:42 | NUR ---
FAMILY CALL RONNY, PTS GIRLFRIEND CALLED. PASSWORD VERIFIED. UPDATED ON PT CONDITION AND PLAN OF CARE. ALLOWED HER TO TALK TO THE PT VIA PORTABLE PHONE. ALL QUESTIONS AND CONCERNS ADDRESSED AT THIS TIME.
[2019-08-18] MEDS: ATORVASTATIN 20 MG TAB PO SCH (21:58)
[2019-08-19] VITALS (93 sets, daily range): BP systolic 77–143; BP diastolic 41–96
[2019-08-19] MEDS: IPRATROPIUM BROM 0.5 MG/2.5ML INH SOL NEB SCH ×4 (00:30→18:24)
[2019-08-19] MEDS: ALBUTEROL SULF 2.5 MG/0.5ML(0.5%) NEB SOLN NEB SCH ×4 (00:30→18:24)
--- NOTE | 2019-08-19 03:57 | NUR ---
PT CARE GAVE PT CHG BATH AND DID FULL KRISTIN/GOWN CHANGE. ORAL CARE DONE AND PT TURNED. PT HAD SMALL SIZED, LOOSE BM. CLEANED APPROPRIATELY AND APPLIED Z GUARD AND OPTIFOAM TO SACRAL AREA. NO NEW SKIN CHANGES NOTED.
[2019-08-19 04:41] LABS: Basophils # (auto) 0.1 10 ^3/uL (0-0.2); Basophils % (auto) 0.9 % (0.0-2.0); Eosinophils # (auto) 0.8 10 ^3/uL (0-0.8); Eosinophils % (auto) 8.7 % (0.0-7.0); Hemoglobin 12.4 g/dL (13.5-17.5); Lymphocytes # (auto) 1.5 10 ^3/uL (0.4-5.4); Lymphocytes % (auto) 16.7 % (10.0-50.0); Mean Corpuscular Hemoglobin 30.4 pg (28.0-32.0); Mean Corpuscular Hgb Conc. 33.4 g/dL (32.0-36.0); Mean Corpuscular Volume 91.2 fL (80.0-100.0); Monocytes # (auto) 0.8 10 ^3/uL (0-1.3); Monocytes % (auto) 9.2 % (0.0-12.0); Neutrophils # (auto) 5.8 10 ^3/uL (1.6-8.6); Neutrophils % (auto) 64.5 % (37.0-80.0); Platelet Count (auto) 216 10^3/uL (140-450); Red Blood Cells 4.06 10^6/uL (4.5-5.90); White Blood Cell 8.9 10^3/uL (4.4-10.8)
[2019-08-19 05:01] LABS: INR 1.06 (0.9-1.15); Partial Thromboplastin Time 25.7 sec (23.64-32.05)
[2019-08-19 05:08] LABS: Potassium 3.9 mmol/L (3.5-5.1)
[2019-08-19 05:18] LABS: Albumin 2.4 g/dL (3.4-5.0); Bilirubin, Total 0.5 mg/dL (0.2-1.0); Calcium 8.2 mg/dL (8.5-10.1); Magnesium 2.3 mg/dL (1.6-2.6); Phosphorus 3.1 mg/dL (2.5-4.90); Total Protein 6.3 g/dL (6.4-8.2)
[2019-08-19] MEDS: InsuLIN REG 1unit/0.01ml Soln (100units/ml) SC SCH ×3 (06:00→18:37)
--- NOTE | 2019-08-19 06:02 | NUR ---
TUBE FEEDINGS HELD FOR CPAP TRIAL
[2019-08-19] MEDS: PIPERACILLIN-TAZOB 3.375GM 100 ML IV SCH ×3 (06:17→18:41)
[2019-08-19] MEDS: ACCU-CHEK COMFORT CURVE STRIP VI SCH ×3 (06:18→18:00)
[2019-08-19] MEDS: POTASSIUM CHL 20MEQ/100ML 100 ML IV PRN ×2 (06:48→08:44)
--- NOTE | 2019-08-19 07:45 | NUR ---
DR CHAVARRIA VISITS AND EXAMINES PATIENT- NO NEW ORDERS RECEIVED.
[2019-08-19] MEDS: NOREPINEPHRINE 8 MG/250ML KIT 250 ML IV SCH ×2 (08:00→14:16)
[2019-08-19] MEDS: MIDAZOLAM DRIP 50 mg/50mL 50 ML IV SCH ×3 (08:00→18:32)
--- NOTE | 2019-08-19 09:00 | NUR ---
PATIENT CURRENTLY OFF OF SEDATION IN PREPARATION FOR CPAP TRIAL Addendum: 08/19/19 at 1636 by Angela Simpson RN Amended: Links added.
--- NOTE | 2019-08-19 10:45 | NUR ---
PATIENT AWAKE AND FOLLOWING COMMANDS - HARSH COUGHING NOTED AND SUBSEQUENT RUNS OF TORSADES NOTED ON BARREL CAP SETTER - ALL PLACED TO EITHER DR HADLEY OR ADDIE REAL RETURNED CALL - ORDER RECEIVED.
[2019-08-19] MEDS: PANTOPRAZOLE 40 MG/10 ML VIAL INJ IV SCH (10:57)
[2019-08-19] MEDS: FUROSEMIDE 40 MG/4 ML VIAL IV SCH (10:57)
[2019-08-19] MEDS: ENOXAPARIN SOD 40 MG/0.4 ML SYRINGE SC SCH (10:58)
[2019-08-19] MEDS: THIAMINE 100mg/ml INJ (200mg/2ml VIAL) IV SCH (10:59)
[2019-08-19] MEDS ORDERED: MAGNESIUM SULFATE 1GM/100ML 100 ML IV ONE (11:00)
--- NOTE | 2019-08-19 11:00 | NUR ---
WOUND CARE NOTE: WOUND CARE IN TO SEE PATIENT PER PHOTOGRAPH TAKEN OF NEW CONCERN. BEDSIDE NURSE NOTED ABRASION TO MEDIAL RIGHT ANKLE FROM IO INSERTION SITE. CLEANSED AREA WITH NORMAL SALINE, PATTED DRY WITH STERILE GAUZE, APPLIED ZGUARD, COVERED WITH OPTIFOAM GENTLE DRESSING. RECOMMEND: EOD DRESSING CHANGE TO MEDIAL RIGHT ANKLE. CONTINUE WITH ALL OTHER WOUND CARE INTERVENTIONS ORDERED BY PHYSICIAN. SKIN/WOUND CARE PLAN. CONTINUED MONITORING BY WOUND CARE TEAM. Addendum: 08/19/19 at 1220 by DIPTI GRANT RN RN Amended: Links added.
--- NOTE | 2019-08-19 11:00 | NUR ---
DR GAITAN VISITS AND EXAMINES PATIENT - UPDATED ON CURRENT PATIENT CONDITION -NO NEW ORDERS RECEIVED.
[2019-08-19] MEDS: SACUBITRIL-VALSARTAN 24mg/26mg TAB PO SCH ×2 (11:14→22:00)
[2019-08-19] MEDS: POTASSIUM EFFERVESENT TAB 25 MEQ GT SCH (11:14)
[2019-08-19] MEDS: CARVEDILOL 12.5 MG TAB PO SCH ×2 (11:15→22:00)
[2019-08-19] MEDS: DOXYCYCLINE 100 MG TAB/CAP PO SCH ×2 (11:15→22:00)
[2019-08-19] MEDS: ASPirin 81 mg TAB PO SCH (11:15)
[2019-08-19] MEDS: TICAGRELOR 90 MG TAB GT SCH ×2 (11:15→22:00)
[2019-08-19] MEDS: AMIODARONE 450mg/250ml AE 250 ML IV SCH (11:29)
--- NOTE | 2019-08-19 12:25 | NUR ---
Dr. Bean visits and examines patient - orders received.
--- NOTE | 2019-08-19 12:25 | NUR ---
DR STEWART VISITS AND EXAMINES PATIENT - UPDATED ON CURRENT CONDITION - NEW ORDERS RECEIVED
[2019-08-19] MEDS: Jevity 1.2 Cal/Fiber 1 Liter GT SCH (16:01)
--- NOTE | 2019-08-19 18:24 | NUR ---
Respiratory note: RECEIVED PT ON VENT V21. VENT CONNECTED TO RED OUTLET AND O2 SOURCE ALARMS ARE SET AND AUDIBLE. AMBU BAG AND MASK AT BEDSIDE. BS ARE CLEAR. NO SX DONE THIS CHECK. PTS CURRENT TEMP READING 100.3F. MED NEB TX GIVEN INLINE VIA AEROGEN. NO ADVERSE REACTION NOTED. RT NAME AND PAGER ASSIGNMENT WRITTEN ON PTS ROOM BOARD. WILL CONTINUE TO MONITOR.
[2019-08-19] MEDS: fentaNYL Drip 2500mCg/250mlNS 250 ML IV SCH (18:57)
--- NOTE | 2019-08-19 19:10 | NUR ---
Report received from LAKEISHA Miller. Patient has Levophed drip at 30 mcg/min (2.997 ml/hr) infusion; Diprovan 20 mcg/kg/min (15 ml/hr) infusion; Fentanyl 100 mcg/hr (10 ml/hr) infusion; Amiodarone drip (0.499 mg/min (16.63 ml/hr) infusion. Jevity at 40 ml/hr. Patient intubated 8.0 256 CM L/L AC 16 Vt 550 FiO2 30% PEEP 6. Patient is scheduled for AICD in tomorrow [address] Lambert. Will continue to monitor VS, RASS, and clinical status.
--- NOTE | 2019-08-19 19:53 | NUR ---
Patient temperature 100.0. Cooling measures applied: Ice packs applied to Nuchal, Groin, & Bilateral Axillary.
--- NOTE | 2019-08-19 20:13 | NUR ---
Respiratory note: ROUTINE VENT CHECK NO CHANGES MADE WILL CONTINUE TO MONITOR. CURRENT TEMP IS 100.0F.
[2019-08-19] MEDS: PROPOFOL 100 ML IV SCH (21:32)
[2019-08-19] MEDS: ATORVASTATIN 20 MG TAB PO SCH (22:00)
--- NOTE | 2019-08-19 22:20 | NUR ---
Respiratory note: ROUTINE VENT CHECK NO CHANGES MADE WILL CONTINUE TO MONITOR. BS ARE COURSE T/O, SXD FOR MODERATE AMOUNT OF THICK WHITE. CURRENT TEMP READS 99.5F.
[2019-08-20] VITALS (106 sets, daily range): BP systolic 91–138; BP diastolic 54–90
--- NOTE | 2019-08-20 | NUR ---
NGT TF off. Patient NPO for AICD placement today at 1300.
--- NOTE | 2019-08-20 | NUR ---
Accucheck 104 mg/dl. No coverage indicated.
[2019-08-20] MEDS: IPRATROPIUM BROM 0.5 MG/2.5ML INH SOL NEB SCH ×4 (00:28→18:37)
[2019-08-20] MEDS: ALBUTEROL SULF 2.5 MG/0.5ML(0.5%) NEB SOLN NEB SCH ×4 (00:28→18:37)
--- NOTE | 2019-08-20 00:28 | NUR ---
Respiratory note: ROUTINE VENT CHECK NO CHANGES MADE WILL CONTINUE TO MONITOR. BS ARE COURSE T/O, SXD FOR MODERATE AMOUNT OF THICK WHITE. MED NEB TX GIVEN INLINE VIA AEROGEN, NO ADVERSE REACTION NOTED. CURRENT TEMP READS 99.5F.
--- NOTE | 2019-08-20 02:27 | NUR ---
Respiratory note: ROUTINE VENT CHECK NO CHANGES MADE WILL CONTINUE TO MONITOR. CURRENT TEMP READS 99.5F.
[2019-08-20] MEDS: PROPOFOL 100 ML IV SCH ×4 (03:00→22:00)
[2019-08-20] MEDS: AMIODARONE 450mg/250ml AE 250 ML IV SCH ×2 (04:00→18:54)
--- NOTE | 2019-08-20 04:09 | NUR ---
Respiratory note: END OF SHIFT VENT CHECK, CURRENT TEMP READS 99.5F. NO CHANGES MADE WILL HAVE DAY SHIFT CONTINUE POC.
--- NOTE | 2019-08-20 04:11 | NUR ---
Flue Lining Dipper at bedside. Hedis Specialist collected blood from CVC and specimens sent to lab.
--- NOTE | 2019-08-20 05:20 | NUR ---
Patient incontinent with large semi-formed brown BM. Complete bedbath and bed linen change.
[2019-08-20] MEDS: MIDAZOLAM DRIP 50 mg/50mL 50 ML IV SCH ×2 (05:29→15:29)
[2019-08-20 05:45] LABS: Basophils # (auto) 0.2 10 ^3/uL (0-0.2); Basophils % (auto) 1.4 % (0.0-2.0); Eosinophils # (auto) 0.8 10 ^3/uL (0-0.8); Eosinophils % (auto) 7.3 % (0.0-7.0); Hematocrit 34.6 % (41.0-53.0); Hemoglobin 11.5 g/dL (13.5-17.5); Lymphocytes # (auto) 2.3 10 ^3/uL (0.4-5.4); Lymphocytes % (auto) 20.6 % (10.0-50.0); Mean Corpuscular Hemoglobin 30.1 pg (28.0-32.0); Mean Corpuscular Hgb Conc. 33.1 g/dL (32.0-36.0); Mean Corpuscular Volume 90.8 fL (80.0-100.0); Monocytes # (auto) 1.2 10 ^3/uL (0-1.3); Monocytes % (auto) 10.7 % (0.0-12.0); Neutrophils # (auto) 6.6 10 ^3/uL (1.6-8.6); Platelet Count (auto) 260 10^3/uL (140-450); Red Blood Cells 3.81 10^6/uL (4.5-5.90); Red Cell Distribution Width 13.1 % (11.8-14.3)
[2019-08-20] MEDS: InsuLIN REG 1unit/0.01ml Soln (100units/ml) SC SCH ×4 (06:00→18:30)
[2019-08-20] MEDS: ACCU-CHEK COMFORT CURVE STRIP VI SCH ×4 (06:03→18:30)
[2019-08-20] MEDS: PIPERACILLIN-TAZOB 3.375GM 100 ML IV SCH ×4 (06:04→18:55)
--- NOTE | 2019-08-20 06:06 | NUR ---
Accucheck 115 mg/dl. No coverage indicated.
[2019-08-20 06:11] LABS: Calcium 8.3 mg/dL (8.5-10.1); INR 1.07 (0.9-1.15); Partial Thromboplastin Time 25.1 sec (23.64-32.05); Potassium 3.4 mmol/L (3.5-5.1)
[2019-08-20 06:12] LABS: BUN/Creatinine Ratio 21.8
--- NOTE | 2019-08-20 08:10 | NUR ---
PATIENT'S SON JUAN RAMON ARRIVES TO HOSPITAL AND SIGNS CONSENT FOR AICD - WITNESSED PER ROLL PLUGGER. JUAN RAMON STATES IT'S ACCEPTABLE WITH HIM THAT PATIENT'S MOTHER ALEJANDRO ZIMMERMAN BE THE APPRENTICE FUNERAL DIRECTOR IN PLACE OF ALL OF THE PATIENT'S SON'S THEIR WORK SCHEDULES ARE NOT CONDUCIVE TO KEEPING IN TOUCH WITH PATIENT'S DOCTORS.
[2019-08-20] MEDS: POTASSIUM CHL 20MEQ/100ML 100 ML IV PRN ×2 (08:33→10:20)
--- NOTE | 2019-08-20 09:00 | NUR ---
SEDATION VACATION HELD DUE TO PATIENT FOLLOWING COMMANDS WHEN AWAKE AT INTERVALS Addendum: 08/20/19 at 2105 by Angela Simpson RN Amended: Links added.
[2019-08-20] MEDS: PANTOPRAZOLE 40 MG/10 ML VIAL INJ IV SCH (09:39)
[2019-08-20] MEDS: THIAMINE 100mg/ml INJ (200mg/2ml VIAL) IV SCH (09:39)
[2019-08-20] MEDS: ENOXAPARIN SOD 40 MG/0.4 ML SYRINGE SC SCH ×2 (09:40→10:05)
[2019-08-20] MEDS: MAGNESIUM SULFATE 1GM/100ML 100 ML IV SCH (09:59)
[2019-08-20] MEDS: SACUBITRIL-VALSARTAN 24mg/26mg TAB PO SCH ×2 (10:00→21:31)
[2019-08-20] MEDS: CARVEDILOL 12.5 MG TAB PO SCH ×2 (10:00→21:30)
[2019-08-20] MEDS: ASPirin 81 mg TAB PO SCH ×2 (10:00→10:16)
[2019-08-20] MEDS: POTASSIUM EFFERVESENT TAB 25 MEQ GT SCH (10:00)
[2019-08-20] MEDS: FUROSEMIDE 40 MG/4 ML VIAL IV SCH (10:03)
[2019-08-20] MEDS: DOXYCYCLINE 100 MG TAB/CAP PO SCH ×2 (10:16→21:31)
[2019-08-20] MEDS: TICAGRELOR 90 MG TAB GT SCH ×2 (10:16→21:30)
[2019-08-20] MEDS ORDERED: POTASSIUM CHL 20MEQ/100ML 100 ML IV ONE (11:15)
--- NOTE | 2019-08-20 11:22 | NUR ---
Nutrition Follow-up Notes Wt.: 131.2 kg Pt was intubated sedated with propofol @ 14.88 ml/hr providing 393 kcals from fats, no family by bedside. Pt receiving Jevity 1.2 @ 40 ml/hr providing 1152 kcals and 52 gm proteins Est. Energy Needs ABW 96 k-1920 kcal (17-20 kcal/kg BW), Est. Protein Needs: 96-105 gms/day (1.0-1.1 gms/kg ABW). Labs: CA 8.3 L. GI: Pt had 1 BM today per RN doc. Skin: Srinivas scale 13 mod risk risk. Please refer to wound assessment report for full details PES: 1) Altered nutrition related lab values r.t current chronic medical condition aeb mod hypoalb hyperglycemia, hypocalcemia, elev TG Decreased nutrient needs r/t adiposity aeb pt`s high BMI of 43.3 kgm2 Impaired swallowing r.t current medical condition aeb pt`s intubated sedated with order of NPO Recommendations: 1) advance diet as medically feasible. 2) advance EN support with Jevity 1.2 @ 60 ml/hr per MD approval. 3) refer to [employer] dietitian on DC. 4) continue current plan of care
[2019-08-20] MEDS: Jevity 1.2 Cal/Fiber 1 Liter GT SCH (14:50)
--- NOTE | 2019-08-20 15:00 | NUR ---
COMPUTER HARDWARE DESIGNER SPOKE WITH PATIENT'S SON LAZ - UPDATED HIM ON PATIENT CONDITION AND POSTPONEMENT OF AICD INSERTION UNTIL MONDAY - VERBALIZES UNDERSTANDING. LAZ ALSO VOICES AGREEMENT THAT PATIENT'S MOTHER SHOULD BE PATIENT'S AIRCRAFT MECHANIC ELECTRICAL AND RADIO FOR DOCTORS. CALL PLACED TO PATIENT'S SON CHANO TO OBTAIN SAME CONSENT FOR PATIENT'S MOTHER TO BE AIRCRAFT MECHANIC ELECTRICAL AND RADIO FOR PATIENT - AWAITING RETURN CALL.
[2019-08-20] MEDS: NOREPINEPHRINE 8 MG/250ML KIT 250 ML IV SCH (15:57)
--- NOTE | 2019-08-20 16:40 | NUR ---
PATIENT'S BRENT DE LOS [facility]ANTOS - GIVEN UPDATE WITH PASSWORD.
--- NOTE | 2019-08-20 19:00 | NUR ---
OPENING SHIFT RECEIVED REPORT FROM DAY SHIFT RN. ASSUMED CARE OF PATIENT. PATIENT INTUBATED AND SEDATED WITH NO SIGNS OR SYMPTOMS OF SOB, PAIN OR DISTRESS. 02 SAT - 98%. POSITIVE COUGH AND GAG. RIGHT INTERNAL JUGULAR - CLEAN/DRY/INTACT. KRAFT HUNG TO GRAVITY. SEDATION: FENTANYL - 100MCG/HR PROPOFOL - 20MCG/KG/MIN VASOPRESSOR: LEVOPHED - 6MCG/MIN AMIODARONE GTT - 0.5MG/MIN REPOSITIONED FOR COMFORT. BED IN LOWEST POSITION, SIDE RAILS UP X2. WILL CONTINUE TO MONITOR.
[2019-08-20] MEDS: fentaNYL Drip 2500mCg/250mlNS 250 ML IV SCH (19:02)
[2019-08-20] MEDS: ATORVASTATIN 20 MG TAB PO SCH (21:31)
--- NOTE | 2019-08-20 22:10 | NUR ---
SPOKE WITH MOTHER (KENDALLSHUKRI) PASSWORD VERIFIED. UPDATED MOTHER ON PATIENT STATUS AND PLAN OF CARE. ALL QUESTIONS AND CONCERNS ADDRESSED AT THIS TIME.
[2019-08-21] VITALS (107 sets, daily range): BP systolic 84–131; BP diastolic 48–92
[2019-08-21] MEDS: PIPERACILLIN-TAZOB 3.375GM 100 ML IV SCH ×4 (00:07→18:00)
[2019-08-21] MEDS: ACCU-CHEK COMFORT CURVE STRIP VI SCH ×4 (00:07→18:00)
[2019-08-21] MEDS: IPRATROPIUM BROM 0.5 MG/2.5ML INH SOL NEB SCH ×4 (00:20→18:46)
[2019-08-21] MEDS: ALBUTEROL SULF 2.5 MG/0.5ML(0.5%) NEB SOLN NEB SCH ×4 (00:20→18:46)
[2019-08-21] MEDS: MIDAZOLAM DRIP 50 mg/50mL 50 ML IV SCH ×3 (01:29→21:29)
[2019-08-21] MEDS: PROPOFOL 100 ML IV SCH ×4 (02:00→21:00)
--- NOTE | 2019-08-21 03:25 | NUR ---
MORNING CARE / CENTRAL LINE DRESSING CHANGED PERFORMED MORNING CARE WITH CHG WIPES AND WASH CLOTHS TO THE FACE. FULL LINEN CHANGE AND GOWN CHANGED. ORAL AND KRAFT CARE PERFORMED. REPOSITIONED FOR COMFORT. SKIN REASSESSED AT THIS TIME. RIGHT INTERNAL JUGULAR DRESSING CLEANED AND CHANGED. WILL CONTINUE TO MONITOR.
[2019-08-21 04:17] LABS: Basophils # (auto) 0.1 10 ^3/uL (0-0.2); Basophils % (auto) 1.1 % (0.0-2.0); Eosinophils # (auto) 0.8 10 ^3/uL (0-0.8); Eosinophils % (auto) 7.6 % (0.0-7.0); Hematocrit 35.1 % (41.0-53.0); Hemoglobin 11.6 g/dL (13.5-17.5); Lymphocytes # (auto) 1.7 10 ^3/uL (0.4-5.4); Mean Corpuscular Hemoglobin 30.4 pg (28.0-32.0); Mean Corpuscular Hgb Conc. 33.2 g/dL (32.0-36.0); Mean Corpuscular Volume 91.7 fL (80.0-100.0); Monocytes % (auto) 10.3 % (0.0-12.0); Neutrophils # (auto) 6.3 10 ^3/uL (1.6-8.6); Platelet Count (auto) 244 10^3/uL (140-450); Red Blood Cells 3.82 10^6/uL (4.5-5.90); White Blood Cell 9.9 10^3/uL (4.4-10.8)
[2019-08-21 04:38] LABS: Calcium 8.1 mg/dL (8.5-10.1); Potassium 4.1 mmol/L (3.5-5.1)
[2019-08-21] MEDS: InsuLIN REG 1unit/0.01ml Soln (100units/ml) SC SCH ×4 (06:00→18:00)
--- NOTE | 2019-08-21 07:15 | NUR ---
END OF SHIFT REPORT GIVEN TO DAY SHIFT RN. CARE ENDORSED.
--- NOTE | 2019-08-21 07:47 | NUR ---
RN report from Steven SUAZO Patient intubated, sedated, on Amiodarone. Patient status post 08/07/19 STEMI w/CPR return to [facility] initial presentation. Patient easily arousable. Patient in NSR, HR of 85, BP 120/69. Plan is to hold [place] for AICD placement 08/21/19, . Consents signed by one of patients sons. Will continue to monitor.
--- NOTE | 2019-08-21 07:58 | NUR ---
Dr. Soliz bedside, no new orders.
[2019-08-21] MEDS: AMIODARONE 450mg/250ml AE 250 ML IV SCH ×2 (09:10→23:30)
[2019-08-21] MEDS: TICAGRELOR 90 MG TAB GT SCH ×2 (10:00→22:00)
[2019-08-21] MEDS: PANTOPRAZOLE 40 MG/10 ML VIAL INJ IV SCH (10:29)
[2019-08-21] MEDS: MAGNESIUM SULFATE 1GM/100ML 100 ML IV SCH (10:30)
[2019-08-21] MEDS: THIAMINE 100mg/ml INJ (200mg/2ml VIAL) IV SCH (10:30)
[2019-08-21] MEDS: CARVEDILOL 12.5 MG TAB PO SCH ×2 (10:31→22:28)
[2019-08-21] MEDS: POTASSIUM EFFERVESENT TAB 25 MEQ GT SCH (10:31)
[2019-08-21] MEDS: ASPirin 81 mg TAB PO SCH (10:32)
[2019-08-21] MEDS: FUROSEMIDE 40 MG/4 ML VIAL IV SCH (10:33)
[2019-08-21] MEDS: DOXYCYCLINE 100 MG TAB/CAP PO SCH ×2 (10:33→22:28)
--- NOTE | 2019-08-21 11:02 | NUR ---
Dr. Oliver bedside Updated on status, discussed Lasix order, new order to change Lasix 1x daily 40mg. D/t post cardiopulmary arrest and STEMI, new order to change all IV medications to highest concentrations to manage fluid status.
[2019-08-21] MEDS: SACUBITRIL-VALSARTAN 24mg/26mg TAB PO SCH ×2 (11:51→22:28)
--- NOTE | 2019-08-21 13:00 | NUR ---
Leslye WINKLER bedside.
--- NOTE | 2019-08-21 14:00 | NUR ---
Patient asleep in bed.
--- NOTE | 2019-08-21 18:30 | NUR ---
Patient small brown liquid BM, sheets changed. NG tube accidentally pulled out. Right IJ dressing changed.
--- NOTE | 2019-08-21 18:46 | NUR ---
RT NOTE RECEIVED PT INTUBATED AND ON VENT V21 ON STATED SETTINGS WITH HEATED WIRE CIRCUIT. VENT IS PLUGGED TO RED OUTLET.ALARMS ARE ON AND AUDIBLE AT NURSES STATION. AMBU BAG AT BEDSIDE AND CONNECTED TO O2 SOURCE. 8.0 ETT IS SECURED WITH ANCHORFAST AT 24 CM TO THE ORAL LEFT. BILATERAL BS ARE CTA. PT WAS SUCTIONED FOR SMALL RETURN. HHN GIVEN INLINE WITH 2.5 MG ALBUTEROL AND 0.5 MG ATROVENT WITHOUT ADVERSE REACTION VIA AEROGEN. WATER LEVEL IS ADEQUATE. CONT ORDERED. CIRCUIT TEMP 34.3, PT TEMP 99.1. POX 99% Addendum: 08/21/19 at 1855 by Chasity Chen RT Amended: Links added.
--- NOTE | 2019-08-21 19:15 | NUR ---
Patient remains sedated, on same vent settings, no CPAP. Prep for AICD placment tomorrow. Arouses easily, moves all extremities, remains on Levophed for BP support. Guerrero catheter to gravity, 200 hr urine output during shift. In NSR, max Temp 99.1 rectal. Bed lowest position, TV on for patient, patient in mittens for redirection.
--- NOTE | 2019-08-21 19:15 | NUR ---
OPENING SHIFT RECEIVED REPORT FROM DAY SHIFT RN. ASSUMED CARE OF PATIENT. PATIENT INTUBATED AND SEDATED WITH NO SIGNS OR SYMPTOMS OF SOB, PAIN OR DISTRESS. 02 SAT - 97%. POSITIVE COUGH AND GAG. RIGHT INTERNAL JUGULAR - CLEAN/DRY/INTACT. KRAFT HUNG TO GRAVITY. SEDATION: FENTANYL - 100MCG/HR PROPOFOL - 20MCG/KG/MIN VASOPRESSOR: LEVOPHED - 10MCG/MIN AMIODARONE GTT - 0.5MG/MIN REPOSITIONED FOR COMFORT. BED IN LOWEST POSITION, SIDE RAILS UP X2. WILL CONTINUE TO MONITOR.
--- NOTE | 2019-08-21 19:27 | NUR ---
Report given to Darek SUAZO. NPO for tomorrow procedure after midnight.
--- NOTE | 2019-08-21 20:18 | NUR ---
RT NOTE ROUTINE VENT CHECK DONE. PT INTUBATED AND ON VENT V21 ON STATED SETTINGS WITH HEATED WIRE CIRCUIT. VENT IS PLUGGED TO RED OUTLET.ALARMS ARE ON AND AUDIBLE AT NURSES STATION. AMBU BAG AT BEDSIDE AND CONNECTED TO O2 SOURCE. 8.0 ETT IS SECURED WITH ANCHORFAST AT 24 CM TO THE ORAL LEFT. BILATERAL BS ARE CTA. WATER LEVEL IS ADEQUATE. CONT ORDERED. CIRCUIT TEMP 35.0, PT TEMP 99.0. POX 100% Addendum: 08/21/19 at 2018 by Chasity Chen RT Amended: Links added.
[2019-08-21] MEDS: NOREPINEPHRINE BITARTRATE 16 MG in SODIUM CHL 0.9% 250 ML IV SCH (20:30)
--- NOTE | 2019-08-21 21:50 | NUR ---
RIGHT NARE NGT 14FR PLACED AT 59CM - VERIFIED VIA AUSCULTATION. WILL CONTINUE TO MONITOR.
--- NOTE | 2019-08-21 22:20 | NUR ---
RT NOTE ROUTINE VENT CHECK DONE. PT INTUBATED AND ON VENT V21 ON STATED SETTINGS WITH HEATED WIRE CIRCUIT. VENT IS PLUGGED TO RED OUTLET.ALARMS ARE ON AND AUDIBLE AT NURSES STATION. AMBU BAG AT BEDSIDE AND CONNECTED TO O2 SOURCE. 8.0 ETT IS SECURED WITH ANCHORFAST AT 24 CM TO THE ORAL CENTER. BILATERAL BS ARE CTA. PT WAS SUCTIONED FOR SMALL RETURN. WATER LEVEL IS ADEQUATE. CONT ORDERED. CIRCUIT TEMP 35.2, PT TEMP 99.1. POX 100% Addendum: 08/21/19 at 2224 by Chasity Chen RT Amended: Links added.
[2019-08-21] MEDS: ATORVASTATIN 20 MG TAB PO SCH (22:28)
[2019-08-22] VITALS (96 sets, daily range): BP systolic 82–135; BP diastolic 53–98
[2019-08-22] MEDS: ALBUTEROL SULF 2.5 MG/0.5ML(0.5%) NEB SOLN NEB SCH ×3 (00:06→19:16)
[2019-08-22] MEDS: IPRATROPIUM BROM 0.5 MG/2.5ML INH SOL NEB SCH ×3 (00:06→19:17)
--- NOTE | 2019-08-22 00:10 | NUR ---
RT NOTE ROUTINE VENT CHECK DONE. PT INTUBATED AND ON VENT V21 ON STATED SETTINGS WITH HEATED WIRE CIRCUIT. VENT IS PLUGGED TO RED OUTLET.ALARMS ARE ON AND AUDIBLE AT NURSES STATION. AMBU BAG AT BEDSIDE AND CONNECTED TO O2 SOURCE. 8.0 ETT IS SECURED WITH ANCHORFAST AT 24 CM TO THE ORAL CENTER. BILATERAL BS ARE CTA. PT WAS SUCTIONED FOR SMALL RETURN. HHN GIVEN INLINE WITH 2.5 MG ALBUTEROL AND 0.5 MG ATROVENT WITH AEROGEN WITHOUT ADVERSE REACTION NOTED. WATER LEVEL IS ADEQUATE. CONT ORDERED. CIRCUIT TEMP 34.7, PT TEMP 99.5. POX 99% Addendum: 08/22/19 at 0010 by Chasity Chen RT Amended: Links added.
[2019-08-22] MEDS: fentaNYL Drip 2500mCg/250mlNS 250 ML IV SCH ×2 (00:57→20:05)
--- NOTE | 2019-08-22 02:32 | NUR ---
RT NOTE ROUTINE VENT CHECK DONE. PT INTUBATED AND ON VENT V21 ON STATED SETTINGS WITH HEATED WIRE CIRCUIT. VENT IS PLUGGED TO RED OUTLET.ALARMS ARE ON AND AUDIBLE AT NURSES STATION. AMBU BAG AT BEDSIDE AND CONNECTED TO O2 SOURCE. 8.0 ETT IS SECURED WITH ANCHORFAST AT 24 CM TO THE ORAL CENTER. PT WAS SUCTIONED FOR SCANT RETURN. INLINE SUCTION CHANGED WITHOUT INCIDENT. WATER LEVEL IS ADEQUATE. CONT ORDERED. CIRCUIT TEMP 34.9, PT TEMP 99.5. POX 96% Addendum: 08/22/19 at 0233 by Chasity Chen RT Amended: Links added.
[2019-08-22] MEDS: PROPOFOL 100 ML IV SCH ×3 (02:50→14:03)
--- NOTE | 2019-08-22 04:14 | NUR ---
RT NOTE ROUTINE VENT CHECK DONE. PT INTUBATED AND ON VENT V21 ON STATED SETTINGS WITH HEATED WIRE CIRCUIT. VENT IS PLUGGED TO RED OUTLET.ALARMS ARE ON AND AUDIBLE AT NURSES STATION. AMBU BAG AT BEDSIDE AND CONNECTED TO O2 SOURCE. 8.0 ETT IS SECURED WITH ANCHORFAST AT 24 CM TO THE ORAL CENTER. WATER LEVEL IS ADEQUATE. LAKEISHA YOUNG AT BEDSIDE BATHING PT. CONT ORDERED. CIRCUIT TEMP 35.0, PT TEMP 99.5. POX 96% Addendum: 08/22/19 at 0427 by Chasity Chen RT Amended: Links added.
--- NOTE | 2019-08-22 04:15 | NUR ---
MORNING CARE PERFORMED MORNING CARE WITH CHG WIPES AND WASH CLOTHS TO THE FACE. FULL LINEN CHANGE AND GOWN CHANGED. ORAL AND KRAFT CARE PERFORMED. REPOSITIONED FOR COMFORT. SKIN REASSESSED AT THIS TIME.
[2019-08-22 05:06] LABS: Basophils # (auto) 0.1 10 ^3/uL (0-0.2); Basophils % (auto) 1.3 % (0.0-2.0); Eosinophils # (auto) 0.7 10 ^3/uL (0-0.8); Eosinophils % (auto) 8.4 % (0.0-7.0); Hematocrit 36.5 % (41.0-53.0); Hemoglobin 11.9 g/dL (13.5-17.5); Lymphocytes # (auto) 1.7 10 ^3/uL (0.4-5.4); Lymphocytes % (auto) 19.1 % (10.0-50.0); Mean Corpuscular Hemoglobin 29.9 pg (28.0-32.0); Mean Corpuscular Hgb Conc. 32.7 g/dL (32.0-36.0); Mean Corpuscular Volume 91.4 fL (80.0-100.0); Monocytes # (auto) 0.9 10 ^3/uL (0-1.3); Monocytes % (auto) 10.3 % (0.0-12.0); Neutrophils # (auto) 5.4 10 ^3/uL (1.6-8.6); Neutrophils % (auto) 60.9 % (37.0-80.0); Nucleated Red Blood Cells % 0.1 %; Platelet Count (auto) 294 10^3/uL (140-450); Red Blood Cells 3.99 10^6/uL (4.5-5.90); Red Cell Distribution Width 13.1 % (11.8-14.3); White Blood Cell 8.8 10^3/uL (4.4-10.8)
[2019-08-22 05:19] LABS: INR 1.07 (0.9-1.15); Partial Thromboplastin Time 26.2 sec (23.64-32.05)
[2019-08-22 05:27] LABS: Potassium 4.4 mmol/L (3.5-5.1)
[2019-08-22 05:37] LABS: BUN/Creatinine Ratio 18.5; Calcium 8.6 mg/dL (8.5-10.1)
[2019-08-22] MEDS: InsuLIN REG 1unit/0.01ml Soln (100units/ml) SC SCH ×4 (06:00→18:00)
[2019-08-22] MEDS: PIPERACILLIN-TAZOB 3.375GM 100 ML IV SCH ×5 (06:00→22:05)
[2019-08-22] MEDS: ACCU-CHEK COMFORT CURVE STRIP VI SCH ×4 (06:02→18:00)
--- NOTE | 2019-08-22 07:28 | NUR ---
END OF SHIFT REPORT GIVEN TO DAY SHIFT RN. CARE ENDORSED.
[2019-08-22] MEDS: MIDAZOLAM DRIP 50 mg/50mL 50 ML IV SCH ×2 (07:29→17:12)
--- NOTE | 2019-08-22 09:06 | NUR ---
Family updated on pt status Family of JUAN RAMON CRENSHAW updated on patient's status and condition. All questions and concerns addressed. Marva verbalized understanding.
[2019-08-22] MEDS: ASPirin 81 mg TAB PO SCH (10:00)
[2019-08-22] MEDS: TICAGRELOR 90 MG TAB GT SCH (10:00)
[2019-08-22] MEDS: DOXYCYCLINE 100 MG TAB/CAP PO SCH ×2 (10:00→22:05)
[2019-08-22] MEDS: CARVEDILOL 12.5 MG TAB PO SCH ×2 (10:00→22:07)
[2019-08-22] MEDS: SACUBITRIL-VALSARTAN 24mg/26mg TAB PO SCH ×2 (10:00→22:06)
[2019-08-22] MEDS: POTASSIUM EFFERVESENT TAB 25 MEQ GT SCH (10:00)
[2019-08-22] MEDS: ENOXAPARIN SOD 40 MG/0.4 ML SYRINGE SC SCH (10:00)
--- NOTE | 2019-08-22 10:00 | NUR ---
MEDICATIONS HELD PO MEDICATIONS HELD PATIENT IS NPO FOR PROCEDURE. 1000 COREG HELD PATIENT REMAINS ON LEVOPHED. MD TO BE NOTIFIED.
[2019-08-22] MEDS: MAGNESIUM SULFATE 1GM/100ML 100 ML IV SCH (10:38)
[2019-08-22] MEDS: PANTOPRAZOLE 40 MG/10 ML VIAL INJ IV SCH (10:38)
[2019-08-22] MEDS: FUROSEMIDE 40 MG/4 ML VIAL IV SCH ×2 (10:39→17:07)
[2019-08-22] MEDS: THIAMINE 100mg/ml INJ (200mg/2ml VIAL) IV SCH (10:39)
--- NOTE | 2019-08-22 10:40 | NUR ---
DR GAITAN AT BEDSIDE. UPDATED ON PATIENT STATUS AND GOALS FOR THE DAY. NO NEW ORDERS AT THIS TIME.
--- NOTE | 2019-08-22 11:32 | NUR ---
Nutrition Follow-up Notes Wt.: 126.3 kg Pt was intubated sedated with propofol @ 14.88 ml/hr providing 393 kcals from fats, no family by bedside. Pt was off tube feed for AICD today. Est. Energy Needs ABW 96 k-1920 kcal (17-20 kcal/kg BW), Est. Protein Needs: 96-105 gms/day (1.0-1.1 gms/kg ABW). Labs: Alb 2.4L GI: Pt had 1 BM today per RN doc. Skin: Srinivas scale 12 high risk. Please refer to wound assessment report for full details PES: 1) Altered nutrition related lab values r.t current chronic medical condition aeb mod hypoalb hyperglycemia, hypocalcemia, elev TG Decreased nutrient needs r/t adiposity aeb pt`s high BMI of 43.3 kgm2 Impaired swallowing r.t current medical condition aeb pt`s intubated sedated with order of NPO Recommendations: 1) advance diet as medically feasible. 2) advance EN support with Jevity 1.2 @ 60 ml/hr per MD approval. 3) refer to [employer] dietitian on DC. 4) continue current plan of care
--- NOTE | 2019-08-22 12:18 | NUR ---
WOUND CARE NOTE: Wound care in for skin integrity monitoring and reevaluation of wounds. Patient continue resting in ICU bed in Rm. 104. Patient is intubated and mechanically ventilated. Patient appears to be in no pain using Tejada Jimenez Faces Pain Scale. His Srinivas score is 12. Skin assessment done the assistance of student nurse Susie sen. Patient's Rt earlobe non-blanchable redness now has thin brown scab measuring 0.7x1cm, surrounding skin is pink, clean and dry, left open to air. Photograph taken for reference. Scab skin tear to neck and Rt lateral chest also clean and dry, continue to improve, leave open to air. Previous IO site to distal Rt lower leg/ankle area is dry and scab. Sacral and back also examined no other wound or pressure injury noted other than dry peeling skin to patient's back. Repositioned patient for comfort facing his Lt. side,redistributed pressure points with pillows. Patent tolerated well. Student nurse Susie sen at bedside. RECOMMENDATION: Continuation of wound care orders prescribed by MD, continue with skin/wound plan of care, continue monitoring by wound care while patient is hospitalized. Addendum: 08/22/19 at 1613 by Marleny Clements RN Amended: Links added.
[2019-08-22] MEDS ORDERED: LIDOCAINE 2%HCL (LOCAL ANESTH.) INJ 20ML MDV ONE (13:41)
--- NOTE | 2019-08-22 14:00 | NUR ---
OFF FLOOR PATIENT TAKEN TO COMPUTING ARCHITECT WITH PORTABLE MONITOR, RT MANAGING VENTILATOR, CONSENTS COMPLETED.
[2019-08-22] MEDS ORDERED: VANCOMYCIN HCL 1000 MG VL ONE (14:24)
--- NOTE | 2019-08-22 15:25 | NUR ---
REPORT GIVEN TO MADDIE TAFE REGISTRAR IN DETAIL. PT STABLE TO BE TRANSPORTED TO ICU. WILL PREPARE FOR TRANSPORT.
--- NOTE | 2019-08-22 15:34 | NUR ---
PT SURGICAL SITE TO THE LEFT UPPER CHEST IS C/D/I. NO HEMATOMA NOTED. PT INTUBATED AND SEDATED. PT TRANSPORTED TO ICU BY 2 RN'S AND RT IN STABLE CONDITION ON STRIP FEEDER. SEE [facility] FOR PROCEDURE DETAILS. NO INCIDENTS TO REPORT.
--- NOTE | 2019-08-22 15:35 | NUR ---
PROCEDURE PATIENT RETURNED FROM AICD PLACEMENT TO LEFT UPPER CHEST. SITE ASYMPTOMATIC, NO BRUISING OR BLEEDING NOTED. SAFEGUARD TO CHEST INFLATED. ICE PACK PLACED OVER SITE. VSS. PER REPORT LEVOPHED WAS TURNED OFF AND PROPOFOL WAS INCREASED. DEFLATION OF SAFEGUARD TO FOLLOW IF NO BLEEDING NOTED.
--- NOTE | 2019-08-22 16:08 | NUR ---
COMPLETE BED BATH GIVEN ALL LINENS CHANGED. PT TOLERATED WELL. SKIN CARE PROVIDED. TURNED TO SITE AND OFF LOADED HEELS TO PREVENT ANY PRESSURE AREAS. HAIR CLEANSED WITH HEAD CAP. SITE TO LEFT UPPER CHEST REMAINED ASYMPTOMATIC. 5ML OF AIR REMOVED. WILL CONTINUE TO MONITOR.
--- NOTE | 2019-08-22 16:18 | NUR ---
SAFEGUARD REMAINS CDI, ASYMPTOMATIC, 10CC OF AIR REMOVED. WILL CONTINUE TO MONITOR SITE.
--- NOTE | 2019-08-22 16:45 | NUR ---
SAFEGUARD REMAINS CDI, ASYMPTOMATIC, 10CC OF AIR REMOVED. WILL CONTINUE TO MONITOR SITE.
--- NOTE | 2019-08-22 17:00 | NUR ---
Family updated on pt status Family of JUAN RAMON CRENSHAW updated on patient's status and condition. All questions and concerns addressed. Marva verbalized understanding.
[2019-08-22] MEDS: AMIODARONE 450mg/250ml AE 250 ML IV SCH (17:08)
--- NOTE | 2019-08-22 19:30 | NUR ---
PT ETT TO VENT, SETTINGS AC16/TV550/FIO2 30%/ PEEP6, L5NLS49%. MODERATE ORAL SECRETIONS W/ SOME BLOOD TINGED SPUTUM. SR ON THE MONITOR. AFEBRILE. PT ON FENTANYL, AMIODARONE, AND ABX. NGT ON RT NARE, CLAMPED, PLACEMENT CHECKED. KRAFT CATHETER DRAINING YELLOW URINE VIA GRAVITY. ACCUSEAL ON LT CHEST S/P AICD PLACEMENT, INTACT. SAFETY PRECAUTIONS IN PLACE. WILL CONTINUE TO MONITOR.
[2019-08-22] MEDS: NOREPINEPHRINE BITARTRATE 16 MG in SODIUM CHL 0.9% 250 ML IV SCH (20:00)
--- NOTE | 2019-08-22 20:00 | NUR ---
SAFE GUARD 10ML AIR REMOVED, CDI, SAFETY PRECAUTIONS IN PLACE, WILL CONTINUE TO MONITOR.
[2019-08-22] MEDS: ATORVASTATIN 20 MG TAB PO SCH (22:06)
[2019-08-23] VITALS (77 sets, daily range): BP systolic 82–126; BP diastolic 50–93
[2019-08-23] MEDS: ACCU-CHEK COMFORT CURVE STRIP VI SCH ×4 (00:02→17:22)
[2019-08-23] MEDS: ALBUTEROL SULF 2.5 MG/0.5ML(0.5%) NEB SOLN NEB SCH ×4 (00:37→18:53)
[2019-08-23] MEDS: IPRATROPIUM BROM 0.5 MG/2.5ML INH SOL NEB SCH ×4 (00:37→18:53)
[2019-08-23] MEDS: MIDAZOLAM DRIP 50 mg/50mL 50 ML IV SCH ×2 (03:29→13:29)
[2019-08-23] MEDS: PIPERACILLIN-TAZOB 3.375GM 100 ML IV SCH ×3 (05:29→17:22)
[2019-08-23] MEDS: AMIODARONE 450mg/250ml AE 250 ML IV SCH ×2 (05:38→20:22)
[2019-08-23] MEDS: InsuLIN REG 1unit/0.01ml Soln (100units/ml) SC SCH ×4 (05:38→17:22)
[2019-08-23] MEDS: PROPOFOL 100 ML IV SCH (05:48)
--- NOTE | 2019-08-23 07:40 | NUR ---
OPENING SHIFT NOTE REPORT RECEIVED FROM CHAIN PULLER RN, MORNING ASSESSMENT PERFORMED AND DOCUMENTED. PATIENT MECHANICALLY VENTILATED, SEDATED, VSS AND DOCUMENTED. KRAFT CATHETER DRAINING CLEAR, LIGHT DARLENE URINE TO GRAVITY. FALL AND SAFETY PRECAUTIONS IN PLACE, PATIENT REPOSITIONED FOR COMFORT AND TO MAINTAIN SKIN INTEGRITY. WILL CONTINUE TO MONITOR.
--- NOTE | 2019-08-23 08:35 | NUR ---
CARDIOLOGY AT BEDSIDE PRATIMA JAIMES, STAFF GENETIC COUNSELOR AT BEDSIDE, UPDATED ON PATIENT'S STATUS, NEED TO RE-SEDATE PER PRINT LINE OPERATOR AND ADD ON PRESSORS. PRATIMA ALSO REVIEWED AM MEDICATIONS TO BE ADMINISTERED AND DR APARICIO'S COMMUNICATION ORDER TO ADMINISTER BRILINTA ON 08/25/19. PRATIMA STATED OK TO CPAP IF PULMONOLOGY FEELS PATIENT READY AND VERBALIZED UNDERSTANDING REGARDING NEED TO RE-SEDATE AND ADMINISTER VASOPRESSORS PER PRINT LINE OPERATOR, SHE ALSO STATED OK TO GIVE ALL MORNING MEDS. DR APARICIO PLACED AICD BUT JOMAR AND PRATIMA WILL CONTINUE TO FOLLOW-UP ON PATIENT CARE. SEDATION VACATION WILL TAKE PLACE TODAY.
--- NOTE | 2019-08-23 08:57 | NUR ---
CALL RECEIVED FROM DR APARICIO ORDERS TO ADMINISTER BRILINTA 90MG PO BID RECEIVED. OK TO CPAP WELL. PRATIMA AJIMES NP AWARE AND AGREED.
--- NOTE | 2019-08-23 10:10 | NUR ---
BM/COMFORT PATIENT CLEANSED OF MODERATE SIZE LIQUID BROWN STOOL, PATIENT CLEANSED WITH WARM WATER AND SOAP, ZGUARD APPLIED - OPTIFOAM INTACT. PATIENT TOLERATED WELL AND REPOSITIONED FOR COMFORT.
[2019-08-23] MEDS: FUROSEMIDE 40 MG/4 ML VIAL IV SCH (10:28)
[2019-08-23] MEDS: PANTOPRAZOLE 40 MG/10 ML VIAL INJ IV SCH (10:28)
[2019-08-23] MEDS: ASPirin 81 mg TAB PO SCH (10:29)
[2019-08-23] MEDS: CARVEDILOL 12.5 MG TAB PO SCH ×2 (10:29→22:17)
[2019-08-23] MEDS: SACUBITRIL-VALSARTAN 24mg/26mg TAB PO SCH ×2 (10:29→22:18)
[2019-08-23] MEDS: DOXYCYCLINE 100 MG TAB/CAP PO SCH ×2 (10:29→22:19)
[2019-08-23] MEDS: THIAMINE 100mg/ml INJ (200mg/2ml VIAL) IV SCH (10:30)
[2019-08-23] MEDS: POTASSIUM EFFERVESENT TAB 25 MEQ GT SCH (10:30)
--- NOTE | 2019-08-23 11:56 | NUR ---
Family updated on pt status Family of JUA NRAMON CRENSHAW updated on patient's status and condition after password verification. All questions and concerns addressed. Patient's mother Marva verbalized understanding.
--- NOTE | 2019-08-23 12:00 | NUR ---
Respiratory note: PT AWAKE, ALERT AND FOLLOWING COMMANDS. CPAP TRIAL EXPLAINED TO PT AND PT SEEMS TO UNDERSTAND. PT PLACED ON CPAP. PS 8, CPAP 5, FIO2 30%. PT TOLERATING WELL. WILL CONTINUE TO MONITOR CLOSELY.
--- NOTE | 2019-08-23 13:39 | NUR ---
Family updated on pt status Family of JUAN RAMON CRENSHAW updated on patient's status and condition after password verification. All questions and concerns addressed. "Girlfriend" Demi verbalized understanding.
--- NOTE | 2019-08-23 13:50 | NUR ---
MESSAGE LEFT FOR DR TERRY STEWART UPDATED ON PATIENT'S STATUS AND CPAP TRIAL RESULTS INCLUDING ABG, NIF -38, LEAK POSITIVE AND VC 600 TO 1200. PATIENT AWAKE, ALERT WITH STABLE VITAL SIGNS. CXR RESULTS ALSO REPORTED, AWAITING RESPONSE.
--- NOTE | 2019-08-23 14:01 | NUR ---
RETURN CALL FROM DR STEWART CPAP RESULTS READ BACK TO DR STEWART, ORDERS FOR CPAP RECEIVED - Noelle FAUSTIN.
--- NOTE | 2019-08-23 14:15 | NUR ---
BM/COMFORT PATIENT CLEANSED OF LARGE LIQUID SIZE BROWN STOOL, SKIN CLEANSED WITH WARM WATER AND SOAP TO MAINTAIN SKIN INTEGRITY. ZGUARD AND NEW OPTIFOAM APPLIED, PATIENT TOLERATED WELL.
--- NOTE | 2019-08-23 14:15 | NUR ---
Respiratory note: CPAP TRIAL AND ABG RESULTS WERE TOLD TO DR. STEWART. NIF-38, POSITIVE LEAK TEST. ORDERS WERE GIVEN TO EXTUBATE. EXTUBATION PROCEDURE WAS EXPLAINED TO PT. PT DEEP SUCTIONED AND SUBGLOTIC SUCTIONING DONE. ETT CUFF DEFLATED AND PT EXTUBATED AND PLACED ON 40% COOL AEROSOL. NO STRIDOR NOTED. PT DOING WELL.
[2019-08-23] MEDS: ENOXAPARIN SOD 40 MG/0.4 ML SYRINGE SC SCH (14:22)
--- NOTE | 2019-08-23 15:32 | NUR ---
CONTACT HOSPITALIST DR GAITAN UPDATED ON PATIENT'S STATUS AND EXTUBATION. PER TERESA, ICU DIRECTOR - REQUESTING ORDERS TO DOWNGRADE. DR GAITAN VERBALIZED UNDERSTANDING AND ORDERED PATIENT TO BE DOWNGRADED TO TELE AFTER 6 HOURS S/P EXTUBATION AND CBC/CMP WITH MAGNESIUM LEVEL FOR TODAY AND TOMORROW. ORDERS WILL BE CARRIED OUT.
[2019-08-23 16:24] LABS: Basophils # (auto) 0.1 10 ^3/uL (0-0.2); Eosinophils # (auto) 0.2 10 ^3/uL (0-0.8); Eosinophils % (auto) 2.2 % (0.0-7.0); Hematocrit 38.5 % (41.0-53.0); Hemoglobin 12.8 g/dL (13.5-17.5); Lymphocytes % (auto) 10.9 % (10.0-50.0); Mean Corpuscular Hemoglobin 30.6 pg (28.0-32.0); Mean Corpuscular Hgb Conc. 33.2 g/dL (32.0-36.0); Mean Corpuscular Volume 92.1 fL (80.0-100.0); Monocytes # (auto) 0.8 10 ^3/uL (0-1.3); Monocytes % (auto) 8.7 % (0.0-12.0); Neutrophils # (auto) 7.2 10 ^3/uL (1.6-8.6); Neutrophils % (auto) 77.2 % (37.0-80.0); Platelet Count (auto) 250 10^3/uL (140-450); Red Blood Cells 4.18 10^6/uL (4.5-5.90); Red Cell Distribution Width 13.2 % (11.8-14.3); White Blood Cell 9.3 10^3/uL (4.4-10.8)
[2019-08-23 16:39] LABS: Albumin 2.9 g/dL (3.4-5.0); Calcium 8.6 mg/dL (8.5-10.1); Magnesium 2.3 mg/dL (1.6-2.6); Potassium 4.1 mmol/L (3.5-5.1)
[2019-08-23 16:44] LABS: BUN/Creatinine Ratio 22.1; Bilirubin, Total 0.8 mg/dL (0.2-1.0); Total Protein 7.2 g/dL (6.4-8.2)
--- NOTE | 2019-08-23 16:49 | NUR ---
BM/FAMILY UPDATED/DR STEWART AT BEDSIDE DR STEWART UPDATED ON PATIENT'S STATUS AND TELE DOWNGRADE S/P EXTUBATION. DR STEWART VERBALIZED AGREEMENT. PATIENT CLEANSED OF LARGE SOFT/LIQUID BROWN STOOL, PATIENT CLEANSED WITH WARM WATER AND SOAP, ZGUARD AND ANTI-FUNGAL APPLIED, PATIENT TOLERATED WELL. PATIENT'S MOTHER UPDATED ON PATIENT'S STATUS AFTER PASSWORD VERIFICATION. SANDIE ABLE TO SPEAK WITH PATIENT VIA CORDLESS PHONE.
--- NOTE | 2019-08-23 19:00 | NUR ---
Opening notes Assumed care, awake, able to follow simple commands but still non-verbal, moves upper extremities but still noted with weakness in the lower extremities Amiodarone drip infusing in the righ IJ @ 0.5 mg/min, ruiz catheter and NGT intact, O2 @ 2L/min/nasal cannula, SPO2 97%, Sinus tach 100's noted. Bed in lowest position with side rails up, bed alarm on. Will continue care.
--- NOTE | 2019-08-23 19:50 | NUR ---
Alley (pt's GF) called, updated on pt's status and POC, all questions and concerns were addressed, verbalized understanding.
[2019-08-23] MEDS: NOREPINEPHRINE BITARTRATE 16 MG in SODIUM CHL 0.9% 250 ML IV SCH (20:00)
--- NOTE | 2019-08-23 20:20 | NUR ---
Dr. Soliz at bedside, updated on pt's status, no new orders made.
--- NOTE | 2019-08-23 20:30 | NUR ---
Hygiene/ Elimination Large amount of loose, brown stools noted, cleansed and kept dry and comfortable. linens and gown changed, repositioned for comfort. Oral care done
[2019-08-23] MEDS: TICAGRELOR 90 MG TAB GT SCH (22:17)
[2019-08-23] MEDS: ATORVASTATIN 20 MG TAB PO SCH (22:19)
[2019-08-24] VITALS (7 sets, daily range): BP systolic 104–122; BP diastolic 67–83
[2019-08-24] MEDS: ACCU-CHEK COMFORT CURVE STRIP VI SCH ×4 (00:11→18:10)
[2019-08-24] MEDS: ALBUTEROL SULF 2.5 MG/0.5ML(0.5%) NEB SOLN NEB SCH ×4 (00:12→18:24)
[2019-08-24] MEDS: IPRATROPIUM BROM 0.5 MG/2.5ML INH SOL NEB SCH ×4 (00:12→18:25)
[2019-08-24] MEDS: PIPERACILLIN-TAZOB 3.375GM 100 ML IV SCH ×2 (00:27→06:00)
--- NOTE | 2019-08-24 00:46 | NUR ---
Report given to Marco to assume care in telemetry unit
--- NOTE | 2019-08-24 00:55 | NUR ---
Elimination Large amount of loose stools noted, cleansed and kept dry and comfortable. Repositioned for comfort
--- NOTE | 2019-08-24 01:35 | NUR ---
ICU patient transferred to floor [facility] CRENSHAW[facility] transferred to room 293 A via bed on phototypesetting equipment monitor and portable 02. All patient medications and personal belongings transfered with patient to receiving floor. Patient care transferred to Marco SUAZO. No distress at the time of departure. NOTE: Patient on amiodarone drip @ 0.5 mg/min
[2019-08-24] MEDS: InsuLIN REG 1unit/0.01ml Soln (100units/ml) SC SCH ×4 (06:00→18:00)
--- NOTE | 2019-08-24 09:30 | NUR ---
WOUND CARE NOTE: SYNERGY AIR ELITE AIR MATTRESS ORDERED AT THIS TIME. PATIENT TO BE PLACED, PENDING DELIVERY BY CHALO JAIMSE.
--- NOTE | 2019-08-24 10:00 | NUR ---
DR GAITAN SAW PATIENT, NOTIFIED MD NO ORDERS FOR NG TUBE TO SUCTION OR CLAMP. MD REPORTS SHE WILL ASK DR DESAI TO SEE PATIENT AND DECIDE ON WHAT TO DO WITH NG. NEW ORDERS FOR CBC, CMP, MAG AND PHOS. CONCERNED WITH DARK DRAINAGE IN SUCTION CANISTER AND TO CHECK HGB.
[2019-08-24] MEDS: DOXYCYCLINE 100 MG TAB/CAP PO SCH ×2 (11:18→22:52)
[2019-08-24] MEDS: SACUBITRIL-VALSARTAN 24mg/26mg TAB PO SCH ×2 (11:18→22:52)
[2019-08-24] MEDS: PANTOPRAZOLE 40 MG/10 ML VIAL INJ IV SCH ×2 (11:25→22:51)
[2019-08-24] MEDS: CARVEDILOL 12.5 MG TAB PO SCH ×2 (11:25→22:52)
[2019-08-24] MEDS: ENOXAPARIN SOD 40 MG/0.4 ML SYRINGE SC SCH (11:27)
[2019-08-24] MEDS: THIAMINE 100mg/ml INJ (200mg/2ml VIAL) IV SCH (11:27)
[2019-08-24] MEDS: ASPirin 81 mg TAB PO SCH (12:02)
[2019-08-24] MEDS: TICAGRELOR 90 MG TAB GT SCH ×2 (12:02→22:00)
--- NOTE | 2019-08-24 13:23 | NUR ---
CALLED LAB FOR STAT BLOOD DRAW, LAB REPORTS THEY ARE BACKED UP BUT WILL NOTIFY AUTOGLAZIER. DR DESAI SAW PATIENT AND DISCUSSED POC. REPORTS TO KEEP NG TUBE, AND KEEP CLAMPED FOR NOW UNTIL SWALLOW EVAL DONE. HE REPORTS THE GASTRIC DRAINAGE IN CANISTER IS BILE, NOT BLOOD.
[2019-08-24 14:17] LABS: Basophils # (auto) 0.1 10 ^3/uL (0-0.2); Basophils % (auto) 0.9 % (0.0-2.0); Eosinophils # (auto) 0.2 10 ^3/uL (0-0.8); Eosinophils % (auto) 1.9 % (0.0-7.0); Hemoglobin 12.6 g/dL (13.5-17.5); Lymphocytes # (auto) 1.2 10 ^3/uL (0.4-5.4); Lymphocytes % (auto) 12.6 % (10.0-50.0); Mean Corpuscular Hemoglobin 30.4 pg (28.0-32.0); Monocytes % (auto) 10.6 % (0.0-12.0); Neutrophils # (auto) 6.7 10 ^3/uL (1.6-8.6); Platelet Count (auto) 258 10^3/uL (140-450); Red Blood Cells 4.14 10^6/uL (4.5-5.90); Red Cell Distribution Width 13.6 % (11.8-14.3); White Blood Cell 9.1 10^3/uL (4.4-10.8)
[2019-08-24 14:36] LABS: Albumin 2.9 g/dL (3.4-5.0); Calcium 8.8 mg/dL (8.5-10.1); Magnesium 2.3 mg/dL (1.6-2.6); Potassium 3.7 mmol/L (3.5-5.1)
[2019-08-24 14:38] LABS: Bilirubin, Total 1.1 mg/dL (0.2-1.0); Phosphorus 2.7 mg/dL (2.5-4.90); Total Protein 7.2 g/dL (6.4-8.2)
--- NOTE | 2019-08-24 14:55 | NUR ---
SWALLOW EVALUATED. PATIENT HAS UPPER AND LOWER NATURAL TEETH. PATIENT WEAK BUT ABLE TO FOLLOW COMMANDS. PATIENT ABLE TO TOLERATE MECHANICAL SOFT DIET TEXTURE WITH THIN LIQUIDS WITH NO OVERT SIGNS OR SYMPTOMS OF ASPIRATION. NURSING NOTIFIED.
--- NOTE | 2019-08-24 15:24 | NUR ---
Nutrition Follow-up Notes Wt.: 121.2 kg Pt`s extubated yesterday sleeping with no family by bedside. pt was NPO when rounded awaiting ST eval. pt is now on [facility] soft diet with no PO recorded yet Est. Energy Needs ABW 96 k-1920 kcal (17-20 kcal/kg BW), Est. Protein Needs: 96-105 gms/day (1.0-1.1 gms/kg ABW). Labs: ALB 2.9 L. GI: Pt had 1 BM today per RN doc. Skin: Srinivas scale 13 mod risk. Please refer to wound assessment report for full details PES: 1) Altered nutrition related lab values r.t current chronic medical condition aeb mod hypoalb hyperglycemia, hypocalcemia, elev TG Decreased nutrient needs r/t adiposity aeb pt`s high BMI of 43.3 kgm2 Resolved: Impaired swallowing r.t current medical condition aeb pt`s intubated sedated with order of NPO Recommendations: 1) continue assistance with meals. 2) refer to [employer] dietitian on DC. 3) continue current plan of care
--- NOTE | 2019-08-24 18:28 | NUR ---
RT NOTE PT WAS SEEN BY RT FOR HHN TX PT TOLERATES WELL VIA MASK. NO ADVERSE REACTION NOTED. CONT ORDERED Addendum: 08/24/19 at 1829 by Chasity Chen RT Amended: Links added.
[2019-08-24] MEDS: ATORVASTATIN 20 MG TAB PO SCH (22:52)
[2019-08-24] MEDS: ACETAMINOPHEN 650 mg PER 20 mL UD GT PRN (23:30)
[2019-08-25] MEDS: IPRATROPIUM BROM 0.5 MG/2.5ML INH SOL NEB SCH ×4 (00:01→18:40)
[2019-08-25] MEDS: ALBUTEROL SULF 2.5 MG/0.5ML(0.5%) NEB SOLN NEB SCH ×4 (00:01→18:40)
--- NOTE | 2019-08-25 00:02 | NUR ---
RT NOTE PT WAS SEEN BY RT FOR HHN TX PT TOLERATES WELL VIA MASK. NO ADVERSE REACTION NOTED. CONT ORDERED Addendum: 08/25/19 at 0003 by Chasity Chen RT Amended: Links added.
--- NOTE | 2019-08-25 00:11 | NUR ---
RT NOTE FIO2 TITRATED TOV 2L NASAL CANNULA POST TX. PT APPEARS TO TOLERATE WELL. Addendum: 08/25/19 at 0011 by Chasity Chen RT Amended: Links added.
[2019-08-25] MEDS: ACCU-CHEK COMFORT CURVE STRIP VI SCH ×4 (00:21→17:03)
--- NOTE | 2019-08-25 03:20 | NUR ---
Patient placed on air mattress.
[2019-08-25 05:00] VITALS: BP 121/79
--- NOTE | 2019-08-25 06:03 | NUR ---
RIJ dressing change performed at this time.
[2019-08-25 06:23] LABS: Basophils # (auto) 0.1 10 ^3/uL (0-0.2); Eosinophils # (auto) 0.2 10 ^3/uL (0-0.8); Eosinophils % (auto) 2.4 % (0.0-7.0); Hematocrit 38.7 % (41.0-53.0); Lymphocytes # (auto) 1.5 10 ^3/uL (0.4-5.4); Lymphocytes % (auto) 16.8 % (10.0-50.0); Mean Corpuscular Hemoglobin 30.8 pg (28.0-32.0); Mean Corpuscular Hgb Conc. 33.6 g/dL (32.0-36.0); Mean Corpuscular Volume 91.5 fL (80.0-100.0); Monocytes # (auto) 0.9 10 ^3/uL (0-1.3); Monocytes % (auto) 9.8 % (0.0-12.0); Neutrophils # (auto) 6.2 10 ^3/uL (1.6-8.6); Nucleated Red Blood Cells % 0.2 %; Platelet Count (auto) 254 10^3/uL (140-450); Red Blood Cells 4.22 10^6/uL (4.5-5.90); Red Cell Distribution Width 13.1 % (11.8-14.3); White Blood Cell 8.9 10^3/uL (4.4-10.8)
[2019-08-25] MEDS: InsuLIN REG 1unit/0.01ml Soln (100units/ml) SC SCH ×4 (06:45→17:02)
[2019-08-25 09:00] VITALS: BP 142/89
--- NOTE | 2019-08-25 09:54 | NUR ---
PLATFORM MILL SUPERVISOR REPORTS PATIENT FELL. ENTERED ROOM, PT SITTING UP ON FLOOR, NG TUBE HALF WAY OUT. MODERATE AMOUNT OF BROWN LIQUID STOOL ON FLOOR UNDER PATIENT. PT HELPED BACK TO BED AND CLEANED UP, BEDDING CHANGED. NG TUBE REMOVED. BED ALARM ON, BED IN LOWEST LOCKED POSITION, SIDE RAILS UP X 3. PT REPORTS NO PAIN AT THIS TIME. VITALS: HR 115 BPM, 02 92%, T 99.7, BP 138/77, RR 18. 0/[address] WADSWORTH CAME TO SEE PATIENT AND ORDERED SITTER. CALLED DR GAITAN, NOTIFIED OF PATIENT FALL. AWARE, NEW ORDERS FOR FALL PRECAUTIONS, DC KRAFT, DC CENTRAL LINE, AND PT CAN EAT. REPORTS SHE WILL COME SEE PATIENT.
[2019-08-25] MEDS: SACUBITRIL-VALSARTAN 24mg/26mg TAB PO SCH ×2 (10:21→22:24)
[2019-08-25] MEDS: ASPirin 81 mg TAB PO SCH (10:21)
[2019-08-25] MEDS: TICAGRELOR 90 MG TAB GT SCH ×2 (10:21→22:23)
[2019-08-25] MEDS: PANTOPRAZOLE 40 MG/10 ML VIAL INJ IV SCH ×2 (10:22→22:23)
[2019-08-25] MEDS: CARVEDILOL 12.5 MG TAB PO SCH ×2 (10:22→22:24)
[2019-08-25] MEDS: DOXYCYCLINE 100 MG TAB/CAP PO SCH ×2 (10:22→22:24)
[2019-08-25] MEDS: FUROSEMIDE 20 MG/2 ML VIAL IV SCH (10:24)
[2019-08-25] MEDS: ENOXAPARIN SOD 40 MG/0.4 ML SYRINGE SC SCH (10:25)
[2019-08-25] MEDS: PIPERACILLIN-TAZOB 3.375GM 100 ML IV SCH ×2 (10:41→17:02)
[2019-08-25 13:00] VITALS: BP 120/70
--- NOTE | 2019-08-25 13:57 | NUR ---
Spoke with Dr Zelaya, she reports she saw patient again and pt reports minor pain in wrist. She reports she has put in order for x ray. Dc'd pt Guerrero per MD order approx 7 mls taken from balloon and 1500 mls light jasmina urine noted in bag. Dc'd central line, pt put in Trendelenburg position, line taken out and pressure applied for 5 minutes, pressure dressing applied. New iv inserted, 22 gauge LFA, and flushed with 10 mls 0.9 NS. Pt tolerated procedures well. Pt girl friend called for update, notified Alley pt fell. Alley reports she has been trying to reach patient on pt cell phone. Found pt cell phone on night stand and phone given to patient, pt notified girlfriend is trying to reach him.
[2019-08-25] MEDS ORDERED: TICAGRELOR 90 MG TAB PO SCH (16:00)
[2019-08-25 17:20] VITALS: BP 127/75
--- NOTE | 2019-08-25 18:36 | NUR ---
PT VOIDED 150 MLS ORANGE URINE INTO URINAL.
[2019-08-25 22:00] VITALS: BP 132/82
[2019-08-25] MEDS: ATORVASTATIN 20 MG TAB PO SCH (22:24)
[2019-08-26] MEDS: ALBUTEROL SULF 2.5 MG/0.5ML(0.5%) NEB SOLN NEB SCH ×5 (00:25→23:54)
[2019-08-26] MEDS: IPRATROPIUM BROM 0.5 MG/2.5ML INH SOL NEB SCH ×5 (00:25→23:54)
[2019-08-26 04:34] VITALS: BP 133/87
[2019-08-26] MEDS: InsuLIN REG 1unit/0.01ml Soln (100units/ml) SC SCH ×4 (06:00→18:00)
[2019-08-26] MEDS: PIPERACILLIN-TAZOB 3.375GM 100 ML IV SCH ×4 (06:49→18:09)
[2019-08-26] MEDS: ACCU-CHEK COMFORT CURVE STRIP VI SCH ×4 (06:50→18:10)
--- NOTE | 2019-08-26 07:23 | NUR ---
PT RESTING IN BED, NO DISTRESS NOTED, PT REPORTS NO PAIN AT THIS TIME, SITTER AT BEDSIDE. SIDE RAILS UP X 3, BED IN LOWEST LOCKED POSITION, ALARM ON. INSTRUCTED TANKER SERVICE ATTENDANT PT NEEDS ASSISTANCE EATING. PT GOT UP TO CHAIR WITH PHYSICAL THERAPY YESTERDAY.
[2019-08-26] MEDS: ASPirin 81 mg TAB PO SCH (09:15)
[2019-08-26] MEDS: DOXYCYCLINE 100 MG TAB/CAP PO SCH ×2 (09:15→21:58)
[2019-08-26] MEDS: SACUBITRIL-VALSARTAN 24mg/26mg TAB PO SCH ×2 (09:16→21:58)
[2019-08-26] MEDS: CARVEDILOL 12.5 MG TAB PO SCH ×2 (09:17→21:59)
[2019-08-26] MEDS: PANTOPRAZOLE 40 MG/10 ML VIAL INJ IV SCH ×2 (09:17→22:09)
[2019-08-26 09:18] VITALS: BP 113/74
[2019-08-26] MEDS: TICAGRELOR 90 MG TAB GT SCH ×2 (09:18→21:58)
[2019-08-26] MEDS: FUROSEMIDE 20 MG/2 ML VIAL IV SCH (09:18)
[2019-08-26] MEDS: ENOXAPARIN SOD 40 MG/0.4 ML SYRINGE SC SCH (09:19)
--- NOTE | 2019-08-26 11:48 | NUR ---
PT HAD SMALL LIQUID BROWN BM, PT CLEANED AND PLACED IN CHAIR. STOOL SAMPLE SENT TO LAB FOR C DIFF. IV SITE SHOWS ERYTHEMA AND MODERATE EDEMA. IV DC'D, PRESSURE DRESSING APPLIED. NEW IV INSERTED BY CHARGE HILLARY, CAMILO 22G, PT TOLERATED PROCEDURE WELL, WILL CONTINUE TO MONITOR.
[2019-08-26 14:00] VITALS: BP 118/71
[2019-08-26 17:00] VITALS: BP 132/67
--- NOTE | 2019-08-26 19:05 | NUR ---
OPENING SHIFT NOTES RESUMED CARE OF PT ,PT IS AWAKE AND ALERT NO SIGNS AND SYMPTOMS OF DISTRESS OR SOB NOTED. BED IS IN THE LOWEST LOCKED POSITION, SIDE RAILS UP X 2. CALL LIGHT WITH IN REACH.UPDATED PT ON PLAN OF CARE AND PT VERBALIZED UNDERSTANDING WILL CONTINUE TO MONITOR Q1HR AN PRN
[2019-08-26 19:45] VITALS: BP 132/67
[2019-08-26] MEDS: ACETAMINOPHEN 650 mg PER 20 mL UD GT PRN (21:58)
[2019-08-26] MEDS: ATORVASTATIN 20 MG TAB PO SCH (21:59)
[2019-08-26 22:00] VITALS: BP 139/90
[2019-08-27] MEDS: PIPERACILLIN-TAZOB 3.375GM 100 ML IV SCH ×5 (00:21→23:44)
[2019-08-27] MEDS: ACCU-CHEK COMFORT CURVE STRIP VI SCH ×4 (00:21→17:37)
[2019-08-27 05:00] VITALS: BP 92/55
[2019-08-27] MEDS: InsuLIN REG 1unit/0.01ml Soln (100units/ml) SC SCH ×4 (05:56→17:55)
[2019-08-27] MEDS: IPRATROPIUM BROM 0.5 MG/2.5ML INH SOL NEB SCH ×3 (06:18→19:13)
[2019-08-27] MEDS: ALBUTEROL SULF 2.5 MG/0.5ML(0.5%) NEB SOLN NEB SCH ×3 (06:18→19:13)
--- NOTE | 2019-08-27 07:30 | NUR ---
Opening Shift Note Assumed care of patient, awake and alert. No S/S of distress/SOB or pain. Bed in lowest and locked position with side rails up x2 and call light in reach. Instructed on POC and to call for assist PRN, will continue to monitor for changes Q1hr and PRN.
[2019-08-27 09:07] VITALS: BP 125/72
[2019-08-27 09:20] LABS: BUN/Creatinine Ratio 19.1; Calcium 9.2 mg/dL (8.5-10.1); Magnesium 2.2 mg/dL (1.6-2.6)
[2019-08-27 09:30] LABS: Potassium 2.9 mmol/L (3.5-5.1)
--- NOTE | 2019-08-27 10:00 | NUR ---
PAGED DR. GAITAN REGARDING PATIENT POTASSIUM LEVEL. AWAITING CALL BACK.
[2019-08-27 10:22] LABS: Basophils # (auto) 0.2 10 ^3/uL (0-0.2); Basophils % (auto) 1.5 % (0.0-2.0); Eosinophils # (auto) 0.2 10 ^3/uL (0-0.8); Eosinophils % (auto) 1.8 % (0.0-7.0); Hematocrit 38.2 % (41.0-53.0); Hemoglobin 12.6 g/dL (13.5-17.5); Lymphocytes # (auto) 1.7 10 ^3/uL (0.4-5.4); Lymphocytes % (auto) 16.5 % (10.0-50.0); Mean Corpuscular Hemoglobin 30.1 pg (28.0-32.0); Mean Corpuscular Volume 91.3 fL (80.0-100.0); Monocytes # (auto) 0.9 10 ^3/uL (0-1.3); Monocytes % (auto) 8.5 % (0.0-12.0); Neutrophils # (auto) 7.2 10 ^3/uL (1.6-8.6); Neutrophils % (auto) 71.7 % (37.0-80.0); Platelet Count (auto) 251 10^3/uL (140-450); Red Blood Cells 4.18 10^6/uL (4.5-5.90); Red Cell Distribution Width 13.1 % (11.8-14.3); White Blood Cell 10.1 10^3/uL (4.4-10.8)
[2019-08-27] MEDS ORDERED: POTASSIUM EFFERVESENT TAB 25 MEQ PO ONE ×2 (10:45→15:45)
[2019-08-27] MEDS: PANTOPRAZOLE 40 MG/10 ML VIAL INJ IV SCH ×2 (10:48→22:54)
[2019-08-27] MEDS: FUROSEMIDE 20 MG/2 ML VIAL IV SCH (10:48)
[2019-08-27] MEDS: ASPirin 81 mg TAB PO SCH (10:48)
[2019-08-27] MEDS: TICAGRELOR 90 MG TAB PO SCH ×2 (10:49→22:53)
[2019-08-27] MEDS: DOXYCYCLINE 100 MG TAB/CAP PO SCH ×2 (10:50→22:53)
[2019-08-27] MEDS: ENOXAPARIN SOD 40 MG/0.4 ML SYRINGE SC SCH (10:50)
[2019-08-27] MEDS: SACUBITRIL-VALSARTAN 24mg/26mg TAB PO SCH ×2 (10:50→22:54)
[2019-08-27] MEDS: CARVEDILOL 12.5 MG TAB PO SCH ×2 (10:50→22:54)
[2019-08-27 13:07] VITALS: BP 109/65
[2019-08-27] MEDS ORDERED: POTASSIUM CHL 20 Meq TABLET PO ONE (14:00)
--- NOTE | 2019-08-27 14:30 | NUR ---
PAGED DR. GAITAN REGARDING PATIENT POTASSIUM ADMINISTRATION. AWAITING CALL BACK.
--- NOTE | 2019-08-27 15:27 | NUR ---
Nutrition Follow-up Notes Wt.: 113.3 kg Pt`s awake with no family by bedside. Pt is with a Mechanical Soft diet, still has some difficulty with swallowing, and requested a finely chopped Mechanical Soft diet. Pt appetite has been poor aeb ave 25% x4 meals d/t swallowing difficulty and no appetite. Explained importance of nutrition in the healing process, encouraged pt to gradually increase his PO intake to meet at least 75% of meals. Pt with no other distress. Will continue to monitor PO status, skin status, pertinent labs and weight trends. Will f/u in 3-5 days. Est. Energy Needs ABW 96 k-1920 kcal (17-20 kcal/kg BW), Est. Protein Needs: 96-105 gms/day (1.0-1.1 gms/kg ABW). Labs: ALB 2.9 L, Pot 2.9 L, Gluc 107 H GI: Pt had 0 BM today per RN doc. Skin: Srinivas scale 14 mod risk. Please refer to wound assessment report for full details PES: 1) Altered nutrition related lab values r.t current chronic medical condition aeb mod hypoalb hyperglycemia, hypocalcemia, elev TG Decreased nutrient needs r/t adiposity aeb pt`s high BMI of 43.3 kgm2 Resolved: Impaired swallowing r.t current medical condition aeb pt`s intubated sedated with order of NPO Recommendations: 1) Continue assistance with meals. 2) Refer to [employer] dietitian on DC. 3) Continue current plan of care
--- NOTE | 2019-08-27 15:38 | NUR ---
SPOKE TO DR. GAITAN. RN UPDATED DR. GAITAN THAT THE PATIENT IS UNABLE TO SWALLOW THE POTASSIUM PILL. MD AWARE. NEW ORDERS RECEIVED, READ BACK AND VERIFIED. SEE EMR FOR ORDERS.
[2019-08-27 17:00] VITALS: BP 119/67
[2019-08-27 22:00] VITALS: BP 116/64
[2019-08-27] MEDS: ATORVASTATIN 20 MG TAB PO SCH (22:53)
[2019-08-28] MEDS: ACCU-CHEK COMFORT CURVE STRIP VI SCH ×5 (00:19→22:00)
[2019-08-28] MEDS: IPRATROPIUM BROM 0.5 MG/2.5ML INH SOL NEB SCH ×4 (00:55→19:23)
[2019-08-28] MEDS: ALBUTEROL SULF 2.5 MG/0.5ML(0.5%) NEB SOLN NEB SCH ×4 (00:55→19:23)
[2019-08-28 05:00] VITALS: BP 101/62
[2019-08-28] MEDS: PIPERACILLIN-TAZOB 3.375GM 100 ML IV SCH ×2 (05:53→11:44)
[2019-08-28] MEDS: InsuLIN REG 1unit/0.01ml Soln (100units/ml) SC SCH ×5 (06:00→22:00)
--- NOTE | 2019-08-28 07:50 | NUR ---
Opening Shift Note Assumed care of patient, Pt laying quietly in bed with eyes closed. Patient is on 2 L NC with No S/S of distress/SOB or pain. Bed is in lowest position, wheels are locked, bed alarm set for safety, sitter at bedside for safety, and side rails up x2. Will continue to monitor for changes Q1hr and PRN.
[2019-08-28 08:00] VITALS: BP 113/64
--- NOTE | 2019-08-28 09:20 | NUR ---
REPORT FROM BELLE VERNON There is a sitter at bedside for safety. Patient is alert and oriented x3-4, slow to respond, speech is pressured and slurred. No signs of distress noted, patient denies pain. He was updated on the plan of care and verbalized understanding. Patient is receiving oxygen at 2L/min via nasal cannula, saturation 94%. Bed is locked, in the lowest position, side rails are up x2 and call light is in reach. He was encouraged to call for assistance as needed.
--- NOTE | 2019-08-28 09:20 | NUR ---
REPORT GIVEN REPORT GIVEN TO KVNG SUAZO. CARE ENDORSED.
--- NOTE | 2019-08-28 09:51 | NUR ---
CALL FROM FAMILY Patient's mother Raine called. After verification of password she was updated on the patient status and plan of care, She verbalized understanding, all questions answered.
[2019-08-28 09:59] LABS: BUN/Creatinine Ratio 19.5; Calcium 9.4 mg/dL (8.5-10.1); Potassium 3.4 mmol/L (3.5-5.1)
--- NOTE | 2019-08-28 10:02 | NUR ---
ARNIE AT BEDSIDE Updated on patient status, plan of care discussed with patient and he verbalized understanding. New order received for ca davis.
[2019-08-28] MEDS: SACUBITRIL-VALSARTAN 24mg/26mg TAB PO SCH ×2 (10:42→22:00)
[2019-08-28] MEDS: DOXYCYCLINE 100 MG TAB/CAP PO SCH ×2 (10:43→22:00)
[2019-08-28] MEDS: CARVEDILOL 12.5 MG TAB PO SCH ×2 (10:44→22:00)
[2019-08-28] MEDS: ASPirin 81 mg TAB PO SCH (10:44)
[2019-08-28] MEDS: TICAGRELOR 90 MG TAB PO SCH ×2 (10:45→22:00)
[2019-08-28] MEDS: FUROSEMIDE 20 MG/2 ML VIAL IV SCH (10:45)
[2019-08-28] MEDS: PANTOPRAZOLE 40 MG/10 ML VIAL INJ IV SCH ×2 (10:45→22:00)
[2019-08-28] MEDS: ENOXAPARIN SOD 40 MG/0.4 ML SYRINGE SC SCH (10:46)
[2019-08-28 13:00] VITALS: BP 100/67
--- NOTE | 2019-08-28 14:08 | NUR ---
PT AT BEDSIDE
--- NOTE | 2019-08-28 15:12 | NUR ---
CALL FROM FAMILY Patient's girlfriend Sujit called. After verification of password she was updated on the patient status and plan of care, She verbalized understanding, all questions answered.
[2019-08-28 17:00] VITALS: BP 131/108
[2019-08-28] MEDS ORDERED: PANT40TA2 PO (17:27)
[2019-08-28] MEDS ORDERED: ATOR20TA50 PO (17:27)
[2019-08-28] MEDS ORDERED: CAR125T PO (17:27)
[2019-08-28] MEDS ORDERED: SACU1TAB PO (17:27)
[2019-08-28] MEDS ORDERED: DOX100T PO (17:27)
[2019-08-28] MEDS ORDERED: ASPI81CH43 PO (17:27)
[2019-08-28] MEDS ORDERED: TICA90TA PO (17:27)
[2019-08-28] MEDS ORDERED: POTA10TA51 PO (17:34)
[2019-08-28] MEDS ORDERED: FURO20TA3 PO (17:34)
--- NOTE | 2019-08-28 17:40 | NUR ---
Patient taken to xray. accompanied by tech, no signs of distress upon departure
[2019-08-28] MEDS ORDERED: POTASSIUM EFFERVESENT TAB 25 MEQ PO ONE (17:45)
[2019-08-28] MEDS ORDERED: FUROSEMIDE 20 MG TAB PO ONE (17:45)
--- NOTE | 2019-08-28 18:00 | NUR ---
PATIENT BACK FROM XRAY no signs of distress noted.
--- NOTE | 2019-08-28 19:40 | NUR ---
Opening Shift Note Assumed care of patient, awake, AAOx4. Sitter at bedside. On room air and standby assist. No S/S of distress/SOB or pain. Bed in lowest locked position, side rails up x2, call light within reach. Instructed on POC and to call for assist PRN, will continue to monitor for changes Q1hr and PRN.
[2019-08-28 22:00] VITALS: BP_SYST 106; BP_SYST 109; BP_DIAS 59; BP_DIAS 69
[2019-08-28] MEDS: ATORVASTATIN 20 MG TAB PO SCH (22:00)
[2019-08-29] MEDS: IPRATROPIUM BROM 0.5 MG/2.5ML INH SOL NEB SCH ×3 (00:16→11:43)
[2019-08-29] MEDS: ALBUTEROL SULF 2.5 MG/0.5ML(0.5%) NEB SOLN NEB SCH ×3 (00:16→11:43)
[2019-08-29] MEDS: ACCU-CHEK COMFORT CURVE STRIP VI SCH ×3 (05:10→16:32)
[2019-08-29] MEDS: InsuLIN REG 1unit/0.01ml Soln (100units/ml) SC SCH ×3 (05:10→16:32)
--- NOTE | 2019-08-29 07:30 | NUR ---
Opening Shift Note Assumed care of patient, awake and alert. Respirations are even and unlabored. No S/S of distress/SOB or pain. Sitter at bedside for safety. Bed is low, locked with 2x side rails up. Call light is within reach. Instructed on POC and to call for assist PRN, will continue to monitor for changes Q1hr and PRN.
[2019-08-29 09:00] VITALS: BP 123/72
[2019-08-29] MEDS ORDERED: FUROSEMIDE 20 MG TAB PO SCH (10:00)
[2019-08-29] MEDS: ENOXAPARIN SOD 40 MG/0.4 ML SYRINGE SC SCH (10:00)
[2019-08-29] MEDS: TICAGRELOR 90 MG TAB PO SCH (10:08)
[2019-08-29] MEDS: FUROSEMIDE 20 MG/2 ML VIAL IV SCH (10:08)
[2019-08-29] MEDS: PANTOPRAZOLE 40 MG/10 ML VIAL INJ IV SCH (10:08)
[2019-08-29] MEDS: DOXYCYCLINE 100 MG TAB/CAP PO SCH (10:08)
[2019-08-29] MEDS: CARVEDILOL 12.5 MG TAB PO SCH (10:09)
[2019-08-29] MEDS: SACUBITRIL-VALSARTAN 24mg/26mg TAB PO SCH (10:09)
[2019-08-29] MEDS: ASPirin 81 mg TAB PO SCH (10:10)
--- NOTE | 2019-08-29 12:00 | NUR ---
WOUND CARE NOTE: IN TO SEE PATIENT AT THIS TIME FOR SKIN/WOUND INTEGRITY. PATIENT IS NOTED TO HAVE A CURRENT ELISOE SCORE OF 17. PATIENT IS NOW FULLY AMBULATORY, ABLE TO SIT AT SIDE OF BED WITH GOOD BALANCE, SELF TURN/REPOSITION SELF. PATIENT'S RIGHT EAR WOUND HAS VERY SMALL 0.5 X 0.4 CM DARK BROWN SCAB NOTED. WOUND ALMOST COMPLETELY RESOLVED. LEFT OPEN TO AIR. RIGHT MEDIAL ANKLE ABRASION IS CLOSED WITH DARK RED SCAB. NO OPEN OR DRAINING AREAS NOTED. LEFT OPEN TO AIR. LEFT UPPER CHEST INCISION CONTINUES TO BE COVERED/CLOSED WITH MULTIPLE STERISTRIPS. LEFT OPEN TO AIR. PHOTOGRAPHED ALL WOUNDS FOR REFERENCE, PLACED IN CHART. UPDATED SKIN/WOUND CARE PLAN FOR ELISEO SCORE OF 17. NO FURTHER WOUND CARE MONITOR IS NEEDED AT THIS TIME. Addendum: 08/29/19 at 1713 by Catherine Zepeda RN Amended: Links added.
[2019-08-29 13:00] VITALS: BP 112/69
--- NOTE | 2019-08-29 13:55 | NUR ---
D/C Planning Per SS consult for a walker. Faxed clinical information to [facility]. Per Madonna with [facility] ) they will deliver wheelchair to front lobby between 13:40-16:40. Informed LAKEISHA Saunders. .
--- NOTE | 2019-08-29 13:56 | NUR ---
D/C Planning Per SS consult for a walker. Faxed clinical information to [facility]. Per Madonna with [facility] ) they will deliver walker to front lobby between 13:40-16:40. Informed LAKEISHA Saunders
[2019-08-29 15:47] VITALS: BP 112/69
[2019-08-29 17:00] VITALS: BP 107/70
--- NOTE | 2019-08-29 17:05 | NUR ---
MRSA swab Collected and sent to lab as per protocol for discharge.
--- NOTE | 2019-08-29 17:53 | NUR ---
Discharge instructions given as ordered. Encourage to follow up with PMD as instructed. All questions and concerns addressed. Patient verbalized understanding. IV removed with catheter intact, pressure dressing applied. Telemetry unit returned to ICU. Patient taken to vehicle via wheelchair with all personal belongings, accompanied by staff. No distress noted at time of departure.
== END 2019-08-29 17:54 | disposition home or self-care (01) | DRG 853 ==
LOC: ER 17:01 → EDBD 17:01 → TELE 17:02 → ICU WEST 08-08 13:42 → TELE-WESTW 08-24 01:40
PROVIDERS: ADMIT Nurse Practitioner Acute Care; ATTEND Family Medicine
PROC: 5A1955Z Respiratory Ventilation, Greater than 96 Consecutive Hours (ICD-10-PCS; 2019-08-07)
PROC: 0BH17EZ Insertion of Endotracheal Airway into Trachea, Via Natural or Artificial Opening (ICD-10-PCS; 2019-08-07)
PROC: 4A023N7 Measurement of Cardiac Sampling and Pressure, Left Heart, Percutaneous Approach (ICD-10-PCS; principal; 2019-08-08)
PROC: 027035Z Dilation of Coronary Artery, One Artery with Two Drug-eluting Intraluminal Devices, Percutaneous Approach (ICD-10-PCS; 2019-08-08)
PROC: 5A02210 Assistance with Cardiac Output using Balloon Pump, Continuous (ICD-10-PCS; 2019-08-08)
PROC: B2111ZZ Fluoroscopy of Multiple Coronary Arteries using Low Osmolar Contrast (ICD-10-PCS; 2019-08-08)
PROC: B2151ZZ Fluoroscopy of Left Heart using Low Osmolar Contrast (ICD-10-PCS; 2019-08-08)
DX: A41.9 Sepsis, unspecified organism (principal); G93.41 Metabolic encephalopathy; N17.0 Acute kidney failure with tubular necrosis; J69.0 Pneumonitis due to inhalation of food and vomit; J96.01 Acute respiratory failure with hypoxia; R57.0 Cardiogenic shock; I21.4 Non-ST elevation (NSTEMI) myocardial infarction; I50.43 Acute on chronic combined systolic (congestive) and diastolic (congestive) heart failure; I63.9 Cerebral infarction, unspecified; E87.2 Acidosis; I47.2 Ventricular tachycardia; J98.11 Atelectasis; G93.1 Anoxic brain damage, not elsewhere classified; I42.0 Dilated cardiomyopathy; I13.0 Hypertensive heart and chronic kidney disease with heart failure and stage 1 through stage 4 chronic kidney disease, or unspecified chronic kidney disease; E66.01 Morbid (severe) obesity due to excess calories; E87.6 Hypokalemia; D69.6 Thrombocytopenia, unspecified; N18.3 Chronic kidney disease, stage 3 (moderate); G47.30 Sleep apnea, unspecified; D72.829 Elevated white blood cell count, unspecified; K21.9 Gastro-esophageal reflux disease without esophagitis; F10.10 Alcohol abuse, uncomplicated; Z20.828 Contact with and (suspected) exposure to other viral communicable diseases; F10.129 Alcohol abuse with intoxication, unspecified; W19.XXXA Unspecified fall, initial encounter; I27.20 Pulmonary hypertension, unspecified; I25.10 Atherosclerotic heart disease of native coronary artery without angina pectoris; R80.9 Proteinuria, unspecified; I48.91 Unspecified atrial fibrillation; Z95.810 Presence of automatic (implantable) cardiac defibrillator; Z82.49 Family history of ischemic heart disease and other diseases of the circulatory system; Z79.899 Other long term (current) drug therapy; Z79.82 Long term (current) use of aspirin; Z79.02 Long term (current) use of antithrombotics/antiplatelets; Z68.38 Body mass index [BMI] 38.0-38.9, adult
CPT/HCPCS: 31500; 36415; 36600; 70450; 71045; 71046; 71275; 73100; 74018; 76705; 80048; 80053; 80061; 80202; 80307; 80320; 81001; 82565; 82570; 82805; 82962; 83036; 83605; 83735; 83880; 84100; 84132; 84156; 84439; 84443; 84481; 84484; 85025; 85048; 85379; 85610; 85730; 86850; 86900; 86901; 87040; 87070; 87081; 87086; 87205; 87493; 87804; 87880; 92610; 92928; 93005; 93306; 93458; 93886; 93970; 94002; 94003; 94640; 95819; 99152; 99153; A4618; C1751; C1874; C1887; C9113; G0378; J0696; J1815; J2001; J2185; J2250; J2405; J2543; J2704; J3480; J3490; J7060

== ENCOUNTER → 2019-09-13 | Outpatient (CLI) | payer BC ==
[~2019-09-13] MED LIST: ASPI81CH43 PO; ATOR20TA50 PO; CAR125T PO; DOX100T PO; FURO20TA3 PO; PANT40TA2 PO; POTA10TA51 PO; SACU1TAB PO; TICA90TA PO
[2019-09-13 16:53] LABS: Basophils # (auto) 0.1 10 ^3/uL (0-0.2); Basophils % (auto) 1.1 % (0.0-2.0); Eosinophils # (auto) 0.3 10 ^3/uL (0-0.8); Eosinophils % (auto) 3.8 % (0.0-7.0); Hematocrit 45.5 % (41.0-53.0); Hemoglobin 14.8 g/dL (13.5-17.5); Lymphocytes # (auto) 1.7 10 ^3/uL (0.4-5.4); Lymphocytes % (auto) 22.7 % (10.0-50.0); Mean Corpuscular Hemoglobin 30.4 pg (28.0-32.0); Mean Corpuscular Hgb Conc. 32.5 g/dL (32.0-36.0); Mean Corpuscular Volume 93.6 fL (80.0-100.0); Monocytes # (auto) 0.6 10 ^3/uL (0-1.3); Monocytes % (auto) 8.1 % (0.0-12.0); Neutrophils # (auto) 4.8 10 ^3/uL (1.6-8.6); Neutrophils % (auto) 64.3 % (37.0-80.0); Nucleated Red Blood Cells % 0.1 %; Platelet Count (auto) 141 10^3/uL (140-450); Red Blood Cells 4.86 10^6/uL (4.5-5.90); Red Cell Distribution Width 13.9 % (11.8-14.3); White Blood Cell 7.5 10^3/uL (4.4-10.8)
[2019-09-13 17:09] LABS: Albumin 3.9 g/dL (3.4-5.0); CRP High Sensitivity 0.03 mg/dL (< 0.3); Potassium 3.9 mmol/L (3.5-5.1)
[2019-09-13 17:12] LABS: BUN/Creatinine Ratio 9.3; Bilirubin, Total 0.4 mg/dL (0.2-1.0); Total Protein 7.7 g/dL (6.4-8.2)
[2019-09-13 17:46] LABS: Urine Bacteria NONE SEEN /hpf (None Seen); Urine Blood Negative /uL (Negative); Urine Hyaline Cast FEW /lpf (0 - 2); Urine Mucus FEW (None Seen); Urine Specific Gravity 1.014 (1.001-1.035); Urine WBC 1 /hpf (0 - 3)
== END | disposition home or self-care (01) ==
LOC: LAB 16:06
PROVIDERS: ATTEND Internal Medicine
DX: I25.10 Atherosclerotic heart disease of native coronary artery without angina pectoris (principal); N18.3 Chronic kidney disease, stage 3 (moderate); F10.20 Alcohol dependence, uncomplicated
CPT/HCPCS: 36415; 80053; 81001; 84443; 85025; 85652; 86141; 87040; 87086

== ENCOUNTER → 2019-10-31 | Outpatient (CLI) | payer BC ==
[~2019-10-31] MED LIST changes: -FURO20TA3 PO; -POTA10TA51 PO
== END | disposition home or self-care (01) ==
LOC: XYW 09:01
PROVIDERS: ATTEND Internal Medicine
DX: I08.1 Rheumatic disorders of both mitral and tricuspid valves (principal); I31.3 Pericardial effusion (noninflammatory); I50.9 Heart failure, unspecified
CPT/HCPCS: 93306

== ENCOUNTER → 2020-01-08 | Outpatient (CLI) | payer BC | END | disposition home or self-care (01) | LOC: XYW 09:42 | PROVIDERS: ATTEND Internal Medicine | DX: I07.1 Rheumatic tricuspid insufficiency (principal); I25.5 Ischemic cardiomyopathy | CPT/HCPCS: 93306 ==

== ENCOUNTER → 2020-07-15 | Outpatient (CLI) | payer BC ==
[2020-07-15 12:25] LABS: Albumin 4.2 g/dL (3.4-5.0); Calcium 9.4 mg/dL (8.5-10.1); Potassium 4.4 mmol/L (3.5-5.1)
[2020-07-15 12:31] LABS: BUN/Creatinine Ratio 21.7; Bilirubin, Total 0.6 mg/dL (0.2-1.0); Total Protein 7.8 g/dL (6.4-8.2)
== END | disposition home or self-care (01) ==
LOC: LAB 10:16
PROVIDERS: ATTEND Internal Medicine
DX: E78.5 Hyperlipidemia, unspecified (principal); I25.5 Ischemic cardiomyopathy
CPT/HCPCS: 36415; 80053; 80061; 83880

== ENCOUNTER → 2020-07-15 | Outpatient (CLI) | payer BC | END | disposition home or self-care (01) | LOC: XYW 09:07 | PROVIDERS: ATTEND Nurse Practitioner Acute Care | DX: I25.5 Ischemic cardiomyopathy (principal); I10 Essential (primary) hypertension | CPT/HCPCS: 93306 ==

== ENCOUNTER → 2021-08-09 | Outpatient (CLI) | payer BC ==
[2021-08-09 15:16] LABS: Basophils # (auto) 0.1 10 ^3/uL (0-0.2); Basophils % (auto) 0.6 % (0.0-2.0); Eosinophils # (auto) 0.2 10 ^3/uL (0-0.8); Eosinophils % (auto) 2.2 % (0.0-7.0); Hematocrit 47.5 % (41.0-53.0); Hemoglobin 16.2 g/dL (13.5-17.5); Lymphocytes # (auto) 2.2 10 ^3/uL (0.4-5.4); Mean Corpuscular Hemoglobin 31.3 pg (28.0-32.0); Mean Corpuscular Hgb Conc. 34.1 g/dL (32.0-36.0); Mean Corpuscular Volume 91.7 fL (80.0-100.0); Monocytes # (auto) 0.9 10 ^3/uL (0-1.3); Monocytes % (auto) 9.2 % (0.0-12.0); Neutrophils # (auto) 6.2 10 ^3/uL (1.6-8.6); Nucleated Red Blood Cells % 0.1 %; Red Blood Cells 5.18 10^6/uL (4.5-5.90); Red Cell Distribution Width 12.8 % (11.8-14.3); White Blood Cell 9.5 10^3/uL (4.4-10.8)
[2021-08-09 15:34] LABS: Urine Bacteria NONE SEEN /hpf (None Seen); Urine Blood Negative /uL (Negative); Urine Mucus FEW (None Seen); Urine Specific Gravity 1.027 (1.001-1.035); Urine WBC 1 /hpf (0 - 3)
[2021-08-09 15:39] LABS: Albumin 4.1 g/dL (3.4-5.0); Calcium 9.6 mg/dL (8.5-10.1); Potassium 4.4 mmol/L (3.5-5.1)
[2021-08-09 15:44] LABS: BUN/Creatinine Ratio 16.1; Bilirubin, Total 0.6 mg/dL (0.2-1.0); Total Protein 8.3 g/dL (6.4-8.2)
== END | disposition home or self-care (01) ==
LOC: LAB 14:51
PROVIDERS: ATTEND Internal Medicine
DX: I50.9 Heart failure, unspecified (principal); I25.5 Ischemic cardiomyopathy
CPT/HCPCS: 36415; 80053; 80061; 81001; 83036; 83880; 85025